=== PATIENT | female | born 1960 | race Caucasian/White ===

== ENCOUNTER → 2016-10-07 | Outpatient (CLI) | payer OTHER ==
[2016-03-06 13:45] VITALS: BP 187/94
[~2016-10-07] MED LIST: AMLO1CAP15 PO; AMLO5TAB2 PO; ASPI1TAB2 PO; ATEN100T PO; ATEN25TA PO; CYCL10TA2 PO; ESTR0.3T PO; IOHEXOL 240 MG/ML 50ML VIAL. PO ONE; IOHEXOL 300 MG/ML 75 ML VIAL IV ONE; MAGNESIUM OXIDE PO; NAPR220C4 PO; OMEP20TA63 PO; OMEP40CA5 PO; ONDA4TAB10 SL; OXYC-323 PO; POTASSIUM PO; SENN1TAB29 PO; TIOT18CA IH
--- NOTE | 2016-10-07 17:38 | RAD ---
INDICATION: Abdominal pain COMPARISON: None. TECHNIQUE: Axial CT images were obtained through the abdomen and pelvis with intravenous contrast. Coronal reformations were processed. FINDINGS: Abdomen: Chest Base: Partially imaged without gross abnormality. Vessels: Severe calcific atherosclerosis. Liver/Biliary: Postcholecystectomy changes without intrahepatic bile duct dilation. Pancreas: No gross abnormality. Spleen: Normal. Kidneys/Adrenal: No hydronephrosis. GI: Colonic diverticulosis. No definite active adjacent inflammation. No dilated loops of bowel to suggest obstruction. Appendix does not appear inflamed. Small fat-containing umbilical hernia. Mild prominence of stomach wall. Degenerative changes spine. Pelvis: Bladder: Partially distended without gross abnormality. IMPRESSION: 1. No evidence of bowel obstruction or appendicitis. 2. Colonic diverticulosis without definite active inflammation. 3. Stomach wall appears mildly prominent. This could be secondary to contraction given that it is not very distended on this exam but real stomach wall thickening from causes such as gastritis is not excluded if the patient is having pain in the region. PQRS Compliance Statement: One or more of the following individualized dose reduction techniques were utilized for this examination: 1. Automated exposure control 2. Adjustment of the mA and/or kV according to patient size 3. Use of iterative reconstruction technique
== END | disposition home or self-care (01) ==
LOC: CT 15:27
PROVIDERS: ATTEND Family Medicine
DX: K57.30 Diverticulosis of large intestine without perforation or abscess without bleeding (principal); K42.9 Umbilical hernia without obstruction or gangrene
CPT/HCPCS: 74177; Q9966; Q9967

== ENCOUNTER 2016-10-20 05:55 | Emergency (ER) | payer OTHER ==
[~2016-10-20] VITALS: Ht 162.6 cm; Wt 71.2 kg
[~2016-10-20 05:55] MED LIST changes: -AMLO1CAP15 PO; -ASPI1TAB2 PO; -ATEN100T PO; -ESTR0.3T PO; -IOHEXOL 240 MG/ML 50ML VIAL. PO ONE; -IOHEXOL 300 MG/ML 75 ML VIAL IV ONE; -MAGNESIUM OXIDE PO; -OMEP40CA5 PO; -ONDA4TAB10 SL; -OXYC-323 PO; -POTASSIUM PO; -SENN1TAB29 PO
--- NOTE | 2016-10-20 06:28 | EKG ---
[facility] [address] [place] [address] Test Date: 2016-10-20 Test Time: 06:12:37 Pat Name: HOLLY ANDERSON Department: Room: Gender: F [employer]: : 1960 Requested By: ROSALINA MURILLO Order Number: [id number] Reading MD: Humza Najera Measurements Intervals [place] Rate: 60 P: -26 MN: 144 QRS: -16 QRSD: 88 T: 0 QT: 414 QTc: 414 Interpretive Statements SINUS RHYTHM LEFTWARD AXIS R-S TRANSITION ZONE IN V LEADS DISPLACED TO THE LEFT NONSPECIFIC ST-T WAVE CHANGES. RI6.01 Unconfirmed report No previous ECG available for comparison Electronically Signed On 10-25-2016 13:33:48 CLOUD PHYSICIST by Humza Najera
--- NOTE | 2016-10-20 06:33 | PHYS DOC ---
Past Medical History Past Medical History: Diverticulitis, GERD, Hypertension Past Surgical History: Cholecystectomy, Tubal ligation Additional Past Surgical Histo: right knee; left foot Alcohol Use: Heavy Drug Use: None Adult General Chief Complaint Chief Complaint: [facility] HPI Patient is a 56 year old female who presents with right-sided abdominal back pain. She states she has to lift items at work and thinks she might of pulled a muscle in her back however after she eats she feels full quickly and feels pressure sensation in her right upper quadrant. She admits that she drinks 5-7 beers daily. She stopped drinking 2 days ago, she didn't feel well. She is complaining about mild headache but denies any neck pain fevers chills. She does states she has a cough but this is not any different than her normal cough from her smoking. She did have her gallbladder removed many years ago. She is of a history of diverticulosis. She denies any constipation diarrhea or dysuria. She denies any blood or black tarry stools. She states her pain in her back is worse when she twists or turns or tries to bend over. It is not in the middle us in the right paraspinal thoracic area. She states she does not have any abdominal discomfort until right after she eats. She has not taken anything as of yet for pain or discomfort over the last 4 days the symptoms flared up. Review of Systems Review of Systems Constitutional: Denies fever or chills [] Eyes: Denies change in visual acuity, redness, or eye pain [] HENT: Denies nasal congestion or sore throat [] Respiratory: Denies cough or shortness of breath [] Cardiovascular: No additional information not addressed in HPI [] GI: Denies abdominal pain, nausea, vomiting, bloody stools or diarrhea [] : Denies dysuria or hematuria [] Musculoskeletal: Denies joint pain or positive for right sided paraspinal back pain [] Integument: Denies rash or skin lesions [] Neurologic: Denies headache, focal weakness or sensory changes [] Endocrine: Denies polyuria or polydipsia [] Allergies Allergies Allergies Coded Allergies Type Severity Reaction Last Updated Verified codeine Adverse Reaction Intermediate vomiting 03/06/16 Yes Physical Exam Physical Exam Constitutional: Well developed, well nourished, no acute distress, non-toxic appearance. [] HENT: Normocephalic, atraumatic, bilateral external ears normal, oropharynx moist, no oral exudates, nose normal. [] Eyes: PERRLA, EOMI, conjunctiva normal, no discharge. [] Neck: Normal range of motion, no tenderness, supple, no stridor. [] Cardiovascular:Heart rate regular rhythm, no murmur [] Lungs & Thorax: Bilateral breath sounds clear to auscultation [] Abdomen: Bowel sounds normal, soft, no tenderness, no masses, no pulsatile masses. [] Skin: Warm, dry, no erythema, no rash. [] Back: Mild tender to palpation over the right thoracic mid back area off the spine. No spinal tenderness or step-offs noted, no CVA tenderness. [] Extremities: No tenderness, no cyanosis, no clubbing, ROM intact, no edema. [] Neurologic: Alert and oriented X 3, normal motor function, normal sensory function, no focal deficits noted. [] Psychologic: Affect normal, judgement normal, mood normal. [] Current Patient Data Vital Signs Vital Signs Date Time Temp Pulse Resp B/P Pulse Ox O2 Delivery O2 Flow Rate FiO2 10/20/16 06:05 97.8 71 16 191/113 98 Room Air 97.8 Lab Values Laboratory Tests Test 10/20/16 06:20 10/20/16 07:00 10/20/16 07:45 White Blood Count 6.9x10^3/uL (4.0-11.0) Red Blood Count 4.63x10^6/uL (3.50-5.40) Hemoglobin 15.4g/dL (12.0-15.5) Hematocrit 45.5% (36.0-47.0) Mean Corpuscular Volume 98fL (79-100) Mean Corpuscular Hemoglobin 33pg (25-35) Mean Corpuscular Hemoglobin Concent 34g/dL (31-37) Red Cell Distribution Width 13.6% (11.5-14.5) Platelet Count 231x10^3/uL (140-400) Neutrophils (%) (Auto) 70% (31-73) Lymphocytes (%) (Auto) 21% (24-48) L Monocytes (%) (Auto) 7% (0-9) Eosinophils (%) (Auto) 1% (0-3) Basophils (%) (Auto) 1% (0-3) Neutrophils # (Auto) 4.9x10^3uL (1.8-7.7) Lymphocytes # (Auto) 1.4x10^3/uL (1.0-4.8) Monocytes # (Auto) 0.5x10^3/uL (0.0-1.1) Eosinophils # (Auto) 0.1x10^3/uL (0.0-0.7) Basophils # (Auto) 0.0x10^3/uL (0.0-0.2) Prothrombin Time 11.9SEC (11.7-14.0) Prothrombin Time INR 0.9 (0.8-1.1) PTT 26SEC (24-38) Sodium Level 144mmol/L (136-145) Potassium Level 3.5mmol/L (3.5-5.1) Chloride Level 103mmol/L (98-107) Carbon Dioxide Level 29mmol/L (21-32) Anion Gap 12 (6-14) Blood Urea Nitrogen 11mg/dL (7-20) Creatinine 0.6mg/dL (0.6-1.0) Estimated GFR (Cockcroft-Gault) 103.0 Glucose Level 126mg/dL (70-99) H Calcium Level 9.3mg/dL (8.5-10.1) Total Bilirubin 0.6mg/dL (0.2-1.0) Direct Bilirubin 0.1mg/dL (0.0-0.2) Aspartate Amino Transferase (AST) 17U/L (15-37) Alanine Aminotransferase (ALT) 32U/L (14-59) Alkaline Phosphatase 71U/L (46-116) Creatine Kinase 55U/L (26-192) Creatine Kinase MB (Mass) 0.9ng/mL (0.0-3.6) Creatine Kinase MB Relative Index % (0-4) Troponin I Quantitative < 0.017ng/mL (0.000-0.055) Total Protein 7.2g/dL (6.4-8.2) Albumin 3.9g/dL (3.4-5.0) Lipase 164U/L (73-393) Urine Collection Type Unknown Urine Color Yellow Urine Clarity Clear Urine pH 7.5 Urine Specific Anderson 1.020 Urine Protein Negativemg/dL (NEG-TRACE) Urine Glucose (UA) Negativemg/dL (NEG) Urine Ketones (Stick) Negativemg/dL (NEG) Urine Blood Negative (NEG) Urine Nitrite Negative (NEG) Urine Bilirubin Negative (NEG) Urine Urobilinogen Dipstick 1.0mg/dL (0.2 mg/dL) Urine Leukocyte Esterase Negative (NEG) Urine RBC Occ/HPF (0-2) Urine WBC Occ/HPF (0-4) Urine Squamous Epithelial Cells Many/LPF Urine Bacteria 0/HPF (0-FEW) Urine Mucus Marked/LPF Influenza Type A Antigen Negative (NEGATIVE) Influenza Type B Antigen Negative (NEGATIVE) Laboratory Tests 10/20/16 06:20 Laboratory Tests 10/20/16 06:20 EKG EKG EKG shows sinus rhythm with rate of [address] elevations, T-wave inversions in lead 3 noted, left axis deviation, as interpreted by me. Radiology/Procedures Radiology/Procedures [facility] [address] [place] [address] IMAGING REPORT Signed PATIENT: HOLLY ANDERSON ACCOUNT: [id number] : 1960 LOCATION: ER AGE: 56 SEX: F EXAM STATUS: REG ER ORD. PHYSICIAN: ROSALINA MURILLO MD REASON: abd pain PROCEDURE: ACUTE ABDOMEN SERIES Abdomen series with chest, 3 views, 10/20/2016: History: Abdominal pain Gas is present in large and small bowel without significant bowel distention. There are small scattered air-fluid levels. No free air is seen in the abdomen. There is no evidence of organomegaly. Surgical clips are present in the right upper quadrant. Aortoiliac calcific plaquing is present. The heart size and pulmonary vascularity are normal. The lungs are clear. There is no evidence of pleural fluid. IMPRESSION: A few small scattered air-fluid levels in the GI tract suggests a mild nonspecific ileus. DICTATED and SIGNED BY: ELSY LAO MD DATE: 10/20/16 0831 CC: ROSALINA MURILLO MD; Meg NIEVES MD ~ Signed PATIENT: HOLLY ANDERSON ACCOUNT: [id number] : 1960 LOCATION: ER AGE: 56 SEX: F EXAM STATUS: REG ER ORD. PHYSICIAN: ROSALINA MURILLO MD REASON: abd pain PROCEDURE: ABDOMEN COMPLETE PROCEDURE Ultrasound of the abdomen complete HISTORY RUQ PAIN: IMPRESSION: CHOLECYSTECTOMY IN 1979. CBD TO .92CM, OTHERWISE WNL. TECHNIQUE Transabdominal ultrasound was used to evaluate the abdomen COMPARISON None FINDINGS Pancreas was normal in appearance. Aorta and vena cava are unremarkable. Liver is within normal limits in size and appearance without a focal lesion. Right kidney is 10.5 centimeters in length without a mass or hydronephrosis. Left kidney is 12.9 centimeters in length without a mass or hydronephrosis. Spleen was normal in appearance. Common duct measured 9 millimeters probably related to the previous cholecystectomy. Patient has had a previous cholecystectomy. IMPRESSION Previous cholecystectomy Bile duct generous in size No other abnormality noted Electronically signed by: Maximino Aaron MD (Oct 20, 2016 07:02:47) DICTATED and SIGNED BY: MAXIMINO AARON MD DATE: 10/20/16701 CC: ROSALINA MURILLO MD; Meg NIEVES MD ~ Impressions: Back muscle Spasm Course & Med Decision Making Course & Med Decision Making Pertinent Labs and Imaging studies reviewed. (See chart for details) EKG, chest x-ray, abdominal series, labs do not show any acute abnormalities in addition to an ultrasound of her abdomen. I'm not concerned this is cardiac as she is clearly tender to palpation over one of her paraspinal muscles on her back and her diverticulitis pain is usually left lower quadrant. Patient is being discharged home with Flexeril to use as needed. She is cautioned not to drive or taking his medicines can impair judgment and make her sleepy. Return precautions given she is to follow-up with her primary care physician within next 3-5 days. Her husbands reappointed being discharge in stable condition this time. She can also take Advil or Tylenol as needed [id number] with Flexeril. Dragon Disclaimer Dragon Disclaimer This electronic medical record was generated, in whole or in part, using a voice recognition dictation system. Departure Departure Impression: Primary Impression: Muscle spasm Disposition: HOME, SELF-CARE Referrals: Meg NIEVES MD (PCP) Patient Instructions: Muscle Strain Additional Instructions: You're x-ray and abdominal ultrasound did not show any abnormalities. Your being discharged home with a diagnosis of muscle spasm. You can take Flexeril as needed for your muscle spasm. You to make sure to sleepy can break the tablet half or just take it prior to going to bed. He should follow up with primary care physician within next 3-5 days. Return ER for worsening pain, or other concerns. Scripts Cyclobenzaprine Hcl 10 Mg Tablet1 Tab PO TID PRN MUSCLE SPASMS #30 TAB Prov:ROSALINA MURILLO MD 10/20/16 ROSALINA MURILLO MD Oct 20, 2016 06:33
[2016-10-20 06:50] LABS: BASO % 1 % (0-3); EOS % 1 % (0-3); HEMATOCRIT 45.5 % (36.0-47.0); HEMOGLOBIN 15.4 g/dL (12.0-15.5); LYMPH # 1.4 x10^3/uL (1.0-4.8); LYMPH % 21 % (24-48); MEAN CORPUSCULAR HEMOGLOBIN 33 pg (25-35); MEAN CORPUSCULAR HGB CONC 34 g/dL (31-37); MEAN CORPUSCULAR VOLUME 98 fL (79-100); MONO % 7 % (0-9); NEUT % 70 % (31-73); PLATELET COUNT 231 x10^3/uL (140-400); RED BLOOD COUNT 4.63 x10^6/uL (3.50-5.40); RED CELL DISTRIBUTION WIDTH 13.6 % (11.5-14.5); WHITE BLOOD COUNT 6.9 x10^3/uL (4.0-11.0)
[2016-10-20 06:56] LABS: CALCIUM 9.3 mg/dL (8.5-10.1); CREATININE 0.6 mg/dL (0.6-1.0); POTASSIUM 3.5 mmol/L (3.5-5.1)
[2016-10-20 07:01] LABS: ALBUMIN 3.9 g/dL (3.4-5.0); DIRECT BILIRUBIN 0.1 mg/dL (0.0-0.2); TOTAL BILIRUBIN 0.6 mg/dL (0.2-1.0); TOTAL PROTEIN 7.2 g/dL (6.4-8.2)
--- NOTE | 2016-10-20 07:04 | RAD ---
PROCEDURE Ultrasound of the abdomen complete HISTORY RUQ PAIN: IMPRESSION: CHOLECYSTECTOMY IN 1979. CBD TO .92CM, OTHERWISE WNL. TECHNIQUE Transabdominal ultrasound was used to evaluate the abdomen COMPARISON None FINDINGS Pancreas was normal in appearance. Aorta and vena cava are unremarkable. Liver is within normal limits in size and appearance without a focal lesion. Right kidney is 10.5 centimeters in length without a mass or hydronephrosis. Left kidney is 12.9 centimeters in length without a mass or hydronephrosis. Spleen was normal in appearance. Common duct measured 9 millimeters probably related to the previous cholecystectomy. Patient has had a previous cholecystectomy. IMPRESSION Previous cholecystectomy Bile duct generous in size No other abnormality noted Electronically signed by: Maximino Aaron MD (Oct 20, 2016 07:02:47)
[2016-10-20 07:09] LABS: BILIRUBIN,URINE NEGATIVE (NEG); GLUCOSE,URINE NEGATIVE (NEG); NITRITE,URINE NEGATIVE (NEG); PH,URINE 7.5; PROTEIN,URINE NEGATIVE (NEG-TRACE)
[2016-10-20 07:10] LABS: CKMB MASS 0.9 ng/mL (0.0-3.6); CREATINE KINASE 55 U/L (26-192)
[2016-10-20 07:11] LABS: INR 0.9 (0.8-1.1); PROTHROMBIN TIME PATIENT 11.9 SEC (11.7-14.0)
[2016-10-20 07:18] LABS: BACTERIA,URINE 0 /HPF (0-FEW); RBC,URINE OCC /HPF (0-2); SQUAMOUS EPITHELIAL CELL,UR MANY /LPF; WBC,URINE OCC /HPF (0-4)
[2016-10-20 08:08] LABS: OBC FLU VALID
--- NOTE | 2016-10-20 08:35 | RAD ---
Abdomen series with chest, 3 views, 10/20/2016: History: Abdominal pain Gas is present in large and small bowel without significant bowel distention. There are small scattered air-fluid levels. No free air is seen in the abdomen. There is no evidence of organomegaly. Surgical clips are present in the right upper quadrant. Aortoiliac calcific plaquing is present. The heart size and pulmonary vascularity are normal. The lungs are clear. There is no evidence of pleural fluid. IMPRESSION: A few small scattered air-fluid levels in the GI tract suggests a mild nonspecific ileus.
[2016-10-20 09:30] VITALS: BP 174/85
--- NOTE | 2016-10-20 09:41 | ACF ---
Admit Criteria Forms Admit Criteria Forms Admit Criteria Forms ABDOMINAL PAIN Clinical Indications for Admission to Inpatient Care (Place 'X' for any and all applicable criteria): Admission is indicated for ANY ONE of the following(1)(2)(3)(4)(5): [X]I. Inpatient admission required rather than observation care (Also use Abdominal Pain: Observation Care, as appropriate) because of ANY ONE of the following: [ ]a) Severe pain requiring acute inpatient management [X]b) Identification of etiology/finding that requires inpatient care (eg, aortic dissection, free air) [ ]c) Absent bowel sounds with complete ileus(6) [ ]d) Suspected toxic megacolon [ ]e) Severe electrolyte abnormalities requiring inpatient care [ ]f) High fever or infection requiring inpatient admission as indicated by ANY ONE of following(7)(8): [ ] i) Appropriate outpatient or observational care antimicrobial treatment unavailable, not effective, or not feasible [ ] ii) Documented bacteremia [ ] iii) Temperature > 104.9 degrees F (oral) [ ] iv) T >103.1 F (oral) or < 96.8 F(rectal) that does not respond to all emergency treatment measures [ ]g) Signs of intestinal obstruction [B] [ ]h) Hemodynamic instability [ ]i) IV fluid to replace significant ongoing losses (greater than 3 L/m2 per day) (12)(13) [ ]j) Percutaneous or open drainage (eg, abscess, biliary tract ) procedures [ ]k) Parenteral nutrition regimen that must be implemented on inpatient basis [ ]l) Other condition,treatment or monitoring requiring inpatient admission. [ ]II. Peritoneal signs present [ ]III. Surgery needed that cannot be performed on an ambulatory basis. [ ]IV. Evaluation requires patient to not eat or drink for extended period ( eg, more than 24 hours). [ ]V. Contraindications and/or Inappropriate clinical situations for Observational Care in patients with abdominal pain, when ANY ONE of the following is required: [ ]a) Thorough evaluation is required to prevent catastrophic events due to delays in diagnosing (e.g.Mesenteric ischemia) 1,3 [ ]b) Patient with severe pathology or with chronic symptoms unlikely to improve in the ED stay (3) [ ]. General contraindications and/or Inappropriate clinical situations for Observational Care in patients with abdominal pain, when ANY ONE of the following is required: [ ]a) Prediction of prolongation of LOS based on ANY ONE of the following may be considered as a contraindication for observational care 2, 3, 4, 5, 6, 7, 8, 9, 10, 11 [ ]i) Age > 65 yrs. [ ]ii) Patient arriving by ambulance [ ]iii) Patient with high acuity [ ]iv) Patient requiring vital sign monitoring [ ]v) Patient on IV medication [ ]b) Systolic blood pressures 180mmHg 3,12 [ ]c) Patient with altered mental status including delirium and other alteration of consciousness, (3) [ ]d) Patient whose discharge disposition will be to a penitentiary home or rehabilitation home should not be managed in Emergency Department Observation Unit. CMS rule requires 3 days hospital stay before such placement.3,13 [ ]e) Patient with failure to thrive due to broad array of etiologies 3,16,17 [ ]f) Inability to ambulate 3,14 Extended stay beyond goal length of stay may be needed for(2)(3): [ ]a) Persistent abdominal pain with suspected intra-abdominal process [ ]b) Diagnosed condition requiring continued stay (e.g., pancreatitis, complicated diverticulitis) [ ]c) Surgery (e.g., colectomy) The original [employer] content created by [employer] has been revised. The portions of the content which have been revised are identified through the use of italic text or in bold, and [employer] has neither reviewed nor approved the modified material.All other unmodified content is copyright [employer]. Please see references footnoted in the original [employer] edition 2016 ALEXANDRE RDZ Oct 20, 2016 09:41
[2016-10-20] MEDS ORDERED: CYCL10TA2 PO (09:46)
[2016-10-21] MEDS ORDERED: ATEN100T PO (11:10)
[2016-10-21] MEDS ORDERED: AMLO1CAP15 PO (11:10)
[2016-10-21] MEDS ORDERED: MAGNESIUM OXIDE PO (11:13)
[2016-10-21] MEDS ORDERED: OMEP40CA5 PO (11:14)
[2016-10-21] MEDS ORDERED: POTASSIUM PO (11:15)
[2016-10-21] MEDS ORDERED: ASPI1TAB2 PO (11:16)
[2016-10-21] MEDS ORDERED: ESTR0.3T PO (11:16)
== END 2016-10-20 10:00 | disposition home or self-care (01) ==
LOC: ER 05:55
DX: M62.830 Muscle spasm of back (principal); K21.9 Gastro-esophageal reflux disease without esophagitis; I10 Essential (primary) hypertension; Z90.49 Acquired absence of other specified parts of digestive tract; Z98.51 Tubal ligation status; Z88.5 Allergy status to narcotic agent
CPT/HCPCS: 36415; 74022; 76700; 80048; 80076; 81001; 82553; 83690; 84484; 85027; 85610; 85730; 87804; 93005; 99285-25

== ENCOUNTER 2016-10-25 06:12 | Day surgery (SDC) | payer OTHER ==
[~2016-10-25] VITALS: Ht 162.6 cm; Wt 71.2 kg
[~2016-10-25 06:12] MED LIST changes: +AMLO1CAP15 PO; +ASPI1TAB2 PO; +ATEN100T PO; +CEFAZOLIN 1GM IVPB FOR OMNI 50 ML IV PRN; +ESTR0.3T PO; +MAGNESIUM OXIDE PO; +OMEP40CA5 PO; +POTASSIUM PO
[2016-10-25] MEDS ORDERED: PROCHLORPERAZINE 10 MG/2 ML VIAL. IV PRN ×2 (07:00→09:00)
[2016-10-25] MEDS ORDERED: LIDOCAINE 1% 1 ML SYRINGE. ID PRN (07:00)
[2016-10-25] MEDS ORDERED: FENTANYL PF 100 MCG/2 ML VIAL. IV PRN ×2 (07:00→09:00)
[2016-10-25] MEDS ORDERED: IV RINGERS,LACTATED 1000ML 1,000 ML IV SCH (07:00)
[2016-10-25] MEDS ORDERED: ONDANSETRON PF 4 MG/2 ML VIAL. IV PRN (07:00)
[2016-10-25] MEDS ORDERED: SEVOFLURANE > 120 MINUTES. IH ONE (07:05)
[2016-10-25] MEDS ORDERED: ONDANSETRON PF 4 MG/2 ML VIAL. ONE (07:06)
[2016-10-25] MEDS ORDERED: NEOSTIGMINE METHYLSULFATE 5 MG/5 ML SYRINGE. ONE (07:06)
[2016-10-25] MEDS ORDERED: GLYCOPYRROLATE 1 MG/5 ML VIAL. ONE (07:06)
[2016-10-25] MEDS ORDERED: DEXAMETHASONE SOD PHOS 20 MG/5 ML VIAL. ONE (07:06)
[2016-10-25] MEDS ORDERED: PROPOFOL 20 ML IV ONE (07:06)
[2016-10-25] MEDS ORDERED: ROCURONIUM 50 MG/5 ML VIAL. ONE (07:06)
[2016-10-25] MEDS ORDERED: LIDOCAINE 2% 100 MG/5 ML DISP.SYRIN. ONE (07:07)
[2016-10-25] MEDS ORDERED: LIDOCAINE 1% 20 ML VIAL. ONE (07:10)
[2016-10-25] MEDS ORDERED: EPINEPHRINE 30 MG/30 ML VIAL. ONE (07:10)
[2016-10-25] MEDS ORDERED: BUPIVACAINE MPF 0.5% 30 ML VIAL. ONE (07:10)
[2016-10-25] MEDS ORDERED: FENTANYL PF 250 MCG/5 ML VIAL. ONE (07:11)
[2016-10-25] MEDS ORDERED: ROPIVacaine 0.5% PF 30 ML VIAL. ONE (07:11)
[2016-10-25] MEDS ORDERED: MIDAZOLAM HCL 2 MG/2 ML VIAL. ONE (07:12)
[2016-10-25] MEDS ORDERED: SCOPOLAMINE 1.5MG PATCH. TD ONE (07:22)
--- NOTE | 2016-10-25 07:32 | DISCH ---
DISCHARGE INSTRUCTIONS Condition on Discharge Condition on Discharge: Stable Activity After Discharge Activity Instructions for Disc: Other, see below Other activity instructions: arm to remain in sling Bathing Instructions: Shower-keep dressing dry Weight Bearing Status after Di: Non weight bearing Diet after Discharge Diet after Discharge: Regular Wound Incision Care Wound/Incision Care: Ice to area for comfort, Keep wound/cast CDI Contacting the DRShelby after DC Call your doctor for: Concerns you may have Follow-Up Follow up with: Elliot in 2wks Treatment/Equipment after DC Adaptive Equipment Issued: None MEGGAN SANFORD II, MD Oct 25, 2016 07:32
--- NOTE | 2016-10-25 07:33 | PDOC ---
BRIEF OPERATIVE NOTE Date: Oct 25, 2016 Pre-Op Diagnosis L RTC tear, cyst Post-Op Diagnosis same Procedure Performed L shoulder scope, RTC repair, cyst decompression Surgeon Elliot Crump Blood Loss 10mL Complications none MEGGAN SANFORD II, MD Oct 25, 2016 07:33
[2016-10-25] MEDS ORDERED: PHENYLEPHRINE in 0.9% NACL PF 1 MG/10 ML DISP.SYRIN. IV ONE (08:04)
[2016-10-25] MEDS ORDERED: HALOPERIDOL LACT 5 MG/ML VIAL. IVP PRN (09:00)
[2016-10-25] MEDS ORDERED: MORPHINE SULFATE 4 MG/ML DISP.SYRIN. IV PRN (09:00)
[2016-10-25] MEDS ORDERED: DIPHENHYDRAMINE 50 MG/ML VIAL IV PRN (09:00)
[2016-10-25] MEDS ORDERED: HYDROMORPHONE 2 MG/ML VIAL. IV PRN (09:00)
[2016-10-25] MEDS ORDERED: MEPERIDINE PF 25 MG/ML VIAL. IV PRN (09:00)
[2016-10-25] MEDS: FENTANYL PF 100 MCG/2 ML VIAL. IV PRN ×2 (10:06→10:59)
[2016-10-25] MEDS ORDERED: ONDA4TAB10 SL (10:39)
[2016-10-25] MEDS ORDERED: SENN1TAB29 PO (10:41)
[2016-10-25] MEDS ORDERED: OXYC-323 PO (10:42)
[2016-10-25] MEDS ORDERED: OXYCODONE/APAP 5/325 TABLET. PO ONE (10:45)
[2016-10-25 11:30] VITALS: BP 132/72
--- NOTE | 2016-10-25 14:00 | OP ---
DATE OF SURGERY: 10/25/2016 SURGEON: Scot Sanford MD RULES EXAMINER: Sweta Crump. ANESTHESIA: General plus regional nerve block. PREOPERATIVE DIAGNOSES: 1. Left shoulder rotator cuff tear. 2. Left shoulder cyst. POSTOPERATIVE DIAGNOSES: 1. Left shoulder rotator cuff tear, supraspinatus. 2. Left shoulder labral detachment and biceps tendinosis. 3. Left shoulder cyst. PROCEDURES PERFORMED: 1. Left shoulder arthroscopic rotator cuff repair. 2. Left shoulder arthroscopic biceps tenotomy. 3. Left shoulder arthroscopic cyst decompression. 4. Left shoulder labral debridement. FINDINGS: 1. The patient had some detachment of her biceps anchor and tear of her superior labrum. Overall, it was stable in considering and performing the tenotomy and debridement. I did not feel that it needed fixation. 2. She had grade 2 to 3 changes anteriorly at her glenoid cartilage. 3. Intact humeral head cartilage. 4. Approximately 50% thickness supraspinatus tear at the leading edge. 5. Intact inferior, anterior, and posterior labrum. ESTIMATED BLOOD LOSS: 10 mL. COMPONENTS INSERTED: A single double-loaded [employer] 1.9 mm Suturefix anchors. COMPLICATIONS: None. REASON FOR PROCEDURE: The patient is a very pleasant 56-year-old female with continued shoulder pain and loss of function that interfered with her activities of daily living who failed conservative therapy such as injections and physical therapy. Because of this, we had a discussion of risks, benefits, and alternatives to the above surgery after reviewing an MRI. She elected to proceed. DESCRIPTION OF PROCEDURE: The patient was greeted in the preoperative area by myself. Correct extremity was marked and verified. She was taken to the operative suite, and antibiotics were started en route. She had a regional nerve block placed by the anesthesiologist even prior to coming back. Once in the OR, she had successful induction of general anesthesia. We then placed her onto the OR table and set her up in beach chair position with her C-spine maintained in neutral position and legs under large pad. She was secured to the bed. We proceeded to prep and drape the left upper extremity in the usual sterile fashion and conducted a standard preoperative timeout. After this, I palpated and marked surface anatomy and used a spinal needle to localize the posterosuperior portal and incised the skin in accordance with this. I then introduced my blunt arthroscopic trocar into the glenohumeral joint, and I then used a spinal needle to localize the anterosuperior portal. I placed a switching stick followed by dilating the hole and placing a clear threaded cannula. I then conducted my diagnostic arthroscopy with the above noted findings. I then opted to place an anteroinferior portal, which I did under spinal needle localization in the same manner. After threading in this cannula, I then debrided the labrum to inspect this and opted to perform a biceps tenotomy rather than a slight repair. After debriding the labrum, I debrided some of the rotator cuff and then passed PDS sutures through a spinal needle from a lateral position and pulled it out through my anterior inferior portal for subacromial visualization. I then removed the anterosuperior and posterosuperior cannula and reintroduced blunt arthroscopic trocar into the subacromial space and performed a bursectomy with combination of shaver and electrocautery. I identified my PDS suture and was easily able to fall into this area with a blunt arthroscopic trocar. I then used a combination of shaver and a little electrocautery at the footprint to prepare the bony bed. After debriding the tear and essentially completing it for full thickness, the tear was approximately 1.5 mm in width and approximately 6 cm to 7 cm in length. I then placed a single, double-loaded suture anchor in the footprint and used a [employer] suture passing device to shuttle two sutures in a simple configuration through the repair. I then tied these down with arthroscopic knot tying techniques. The repair was stable to probing. No gapping at the bone tendon interface on rotation. I then removed all the excess arthroscopic fluid and the arthroscopic instrumentation after cutting the free limbs of the suture. The wounds were then closed with simple interrupted 2-0 nylon, and we did inject some local anesthetic into the periportal and subacromial area. She tolerated the surgery well. Postoperative plan is for her to be nonweightbearing x 4 weeks in the sling. We will have her get started on PT later this week. We will follow along with her postoperative course. She will see me in 2 weeks, sooner should problems arise. SCOT SANFORD MD DR: EUN/sofia JOB#: [id number] / [id number] MTDD
== END 2016-10-25 12:22 | disposition home or self-care (01) ==
LOC: SURG 06:12
PROVIDERS: ATTEND Orthopaedic Surgery Sports Medicine
DX: M75.102 Unspecified rotator cuff tear or rupture of left shoulder, not specified as traumatic (principal); S43.432A Superior glenoid labrum lesion of left shoulder, initial encounter; M19.042 Primary osteoarthritis, left hand; I10 Essential (primary) hypertension; E78.00 Pure hypercholesterolemia, unspecified; J45.909 Unspecified asthma, uncomplicated; Z90.49 Acquired absence of other specified parts of digestive tract; Z98.51 Tubal ligation status; Z87.39 Personal history of other diseases of the musculoskeletal system and connective tissue
CPT/HCPCS: 29822; 29827; J0171; J0690; J0780; J1100; J2250; J2370; J2405; J2704; J2710; J2795; J3010; J3490; C1782; J7120

== ENCOUNTER 2017-02-14 19:47 | Observation (INO) | payer OTHER ==
[~2017-02-14] VITALS: Ht 162.6 cm; Wt 75.5 kg
[~2017-02-14 19:47] MED LIST changes: -CEFAZOLIN 1GM IVPB FOR OMNI 50 ML IV PRN; +ONDA4TAB10 SL; +OXYC-323 PO; +SENN1TAB29 PO
[2017-02-14 20:35] LABS: BASO # 0.1 x10^3/uL (0.0-0.2); BASO % 1 % (0-3); EOS % 2 % (0-3); HEMATOCRIT 38.9 % (36.0-47.0); HEMOGLOBIN 13.7 g/dL (12.0-15.5); LYMPH # 2.3 x10^3/uL (1.0-4.8); LYMPH % 33 % (24-48); MEAN CORPUSCULAR HEMOGLOBIN 34 pg (25-35); MEAN CORPUSCULAR HGB CONC 35 g/dL (31-37); MEAN CORPUSCULAR VOLUME 97 fL (79-100); MONO % 5 % (0-9); NEUT % 60 % (31-73); PLATELET COUNT 250 x10^3/uL (140-400); RED BLOOD COUNT 3.99 x10^6/uL (3.50-5.40); RED CELL DISTRIBUTION WIDTH 13.3 % (11.5-14.5); WHITE BLOOD COUNT 6.9 x10^3/uL (4.0-11.0)
[2017-02-14 20:57] LABS: ALBUMIN 3.6 g/dL (3.4-5.0); ALBUMIN/GLOBULIN RATIO 1.1 (1.0-1.7); CALCIUM 7.1 mg/dL (8.5-10.1); CREATININE 0.6 mg/dL (0.6-1.0); MAGNESIUM 0.8 mg/dL (1.8-2.4); TOTAL BILIRUBIN 0.3 mg/dL (0.2-1.0)
[2017-02-14 21:00] LABS: POTASSIUM 2.9 mmol/L (3.5-5.1)
[2017-02-14] MEDS ORDERED: POTASSIUM CHLORIDE 20 MEQ TABLET.ER. PO ONE (21:30)
[2017-02-14] MEDS ORDERED: MAGNESIUM SULFATE 2GM 50 ML IV ONE (22:00)
--- NOTE | 2017-02-14 22:33 | PHYS DOC ---
Past Medical History Past Medical History: Diverticulitis, GERD, High Cholesterol, Hypertension Past Surgical History: Cholecystectomy, Tubal ligation Additional Past Surgical Histo: right knee; left foot Additional Information: PPD Alcohol Use: Heavy Drug Use: None Adult General Chief Complaint Chief Complaint: MUSCLE SPASM/CRAMP HPI HPI 56-year-old female presenting to the emergency department today with muscle cramping. She reports cramping in her hands and her legs. She has a history of low potassium and low magnesium. She is been trying to drink Pedialyte to replace her electrolytes and taking [id number] potassium and magnesium supplementation. Onset 1 week. Intermittent nonradiating without alleviating or exacerbating factors. Review of systems is negative for chest pain abdominal pain nausea vomiting fevers or chills. She denies palpitations or syncope. All other review of systems is negative unless otherwise noted in history of present illness. ED course: 56-year-old female presenting to the emergency department today with muscle cramps. Vital signs afebrile with normal blood pressure. Physical exam unremarkable. Magnesium and potassium quite low. EKG obtained. EKG shows sinus rhythm with a regular rate. Intervals show QTC within normal limits. QRS minimally prolonged. Mag and potassium low. IV potassium and magnesium replaced. The patient was then admitted for IV electrolyte disturbance placement and further evaluation workup and care. She was admitted to Dr. Nieves her primary care physician. Patient does not meet inpatient criteria. Review of Systems Review of Systems SEE ABOVE. Current Medications Current Medications Current Medications Medications (Trade) Dose Ordered Sig/Maryanne Start Time Stop Time Status Last Admin Dose Admin Magnesium Sulfate/ Dextrose 50 ml @ 25 mls/hr 1X ONCE 02/14/17 22:00 02/14/17 23:59 02/14/17 21:58 25 MLS/HR Potassium Chloride (Klor-Con) 40 meq 1X ONCE 02/14/17 21:30 02/14/17 21:31 DC 02/14/17 21:58 40 MEQ Allergies Allergies Allergies Coded Allergies Type Severity Reaction Last Updated Verified shellfish derived Allergy Intermediate Vomiting,Lethargy,[place]ountain really bad Yes codeine Adverse Reaction Intermediate vomiting 10/25/16 Yes Physical Exam Physical Exam Constitutional: Well developed, well nourished, no acute distress, non-toxic appearance. HENT: Normocephalic, atraumatic, bilateral external ears normal, oropharynx moist, no oral exudates, nose normal. [] Eyes: PERRLA, EOMI, conjunctiva normal, no discharge. Neck: Normal range of motion, no tenderness, supple, no stridor. [] Cardiovascular:Heart rate regular rhythm, no murmur Lungs & Thorax: Bilateral breath sounds clear to auscultation [] Abdomen: Bowel sounds normal, soft, no tenderness, no masses, no pulsatile masses. Skin: Warm, dry, no erythema, no rash. [] Back: No tenderness, no CVA tenderness. [] Extremities: No tenderness, no cyanosis, no clubbing, ROM intact, no edema. Neurologic: Alert and oriented X 3, normal motor function, normal sensory function, no focal deficits noted. Psychologic: Affect normal, judgement normal, mood normal. [] Current Patient Data Vital Signs Vital Signs Date Time Temp Pulse Resp B/P (MAP) Pulse Ox O2 Delivery O2 Flow Rate FiO2 02/14/17 20:20 98.2 69 20 97 Room Air 98.2 Lab Values Laboratory Tests Test 02/14/17 20:20 02/14/17 20:27 White Blood Count 6.9 x10^3/uL (4.0-11.0) Red Blood Count 3.99 x10^6/uL (3.50-5.40) Hemoglobin 13.7 g/dL (12.0-15.5) Hematocrit 38.9 % (36.0-47.0) Mean Corpuscular Volume 97 fL (79-100) Mean Corpuscular Hemoglobin 34 pg (25-35) Mean Corpuscular Hemoglobin Concent 35 g/dL (31-37) Red Cell Distribution Width 13.3 % (11.5-14.5) Platelet Count 250 x10^3/uL (140-400) Neutrophils (%) (Auto) 60 % (31-73) Lymphocytes (%) (Auto) 33 % (24-48) Monocytes (%) (Auto) 5 % (0-9) Eosinophils (%) (Auto) 2 % (0-3) Basophils (%) (Auto) 1 % (0-3) Neutrophils # (Auto) 4.1 x10^3uL (1.8-7.7) Lymphocytes # (Auto) 2.3 x10^3/uL (1.0-4.8) Monocytes # (Auto) 0.3 x10^3/uL (0.0-1.1) Eosinophils # (Auto) 0.1 x10^3/uL (0.0-0.7) Basophils # (Auto) 0.1 x10^3/uL (0.0-0.2) Sodium Level 135 mmol/L (136-145) L Potassium Level 2.9 mmol/L (3.5-5.1) *L Chloride Level 95 mmol/L (98-107) L Carbon Dioxide Level 27 mmol/L (21-32) Anion Gap 13 (6-14) 21 mmol/L (6-14) H Blood Urea Nitrogen 10 mg/dL (7-20) Creatinine 0.6 mg/dL (0.6-1.0) Estimated GFR (Cockcroft-Gault) 103.0 BUN/Creatinine Ratio 17 (6-20) Glucose Level 107 mg/dL (70-99) H 103 mg/dL (70-99) H Calcium Level 7.1 mg/dL (8.5-10.1) L Magnesium Level 0.8 mg/dL (1.8-2.4) L Total Bilirubin 0.3 mg/dL (0.2-1.0) Aspartate Amino Transferase (AST) 18 U/L (15-37) Alanine Aminotransferase (ALT) 29 U/L (14-59) Alkaline Phosphatase 77 U/L (46-116) Total Protein 7.0 g/dL (6.4-8.2) Albumin 3.6 g/dL (3.4-5.0) Albumin/Globulin Ratio 1.1 (1.0-1.7) POC Hemoglobin 13.9 g/dL (12-15) POC Hematocrit 41 % (36-40) H POC Sodium 134 mmol/L (135-145) L POC Potassium 3.0 mmol/L (3.5-5.0) L POC Chloride 94 mmol/L (98-110) L POC Total CO2 24 mmol/L (23-32) POC Blood Urea Nitrogen 9 mg/dL (8-26) POC Creatinine 0.7 mg/dL (0.5-1.4) POC Ionized Calcium (Andrea) 0.89 mmol/L (1.13-1.32) L Laboratory Tests 02/14/17 20:20 Laboratory Tests 02/14/17 20:20 02/14/17 20:27 EKG EKG [] Radiology/Procedures Radiology/Procedures [] Course & Med Decision Making Course & Med Decision Making Pertinent Labs and Imaging studies reviewed. (See chart for details) [] Dragon Disclaimer Dragon Disclaimer This electronic medical record was generated, in whole or in part, using a voice recognition dictation system. Departure Departure Impression: Primary Impression: Hypokalemia Additional Impression: Magnesium deficiency Disposition: 09 ADMITTED INPATIENT Admitting Physician: Steven Nieves Condition: IMPROVED Referrals: CIPRIANO NIEVES MD (PCP) Problem Qualifiers ELIAZAR OLVERA MD Feb 14, 2017 22:33
[2017-02-14] MEDS ORDERED: ONDANSETRON PF 4 MG/2 ML VIAL. IV PRN (22:45)
[2017-02-14] MEDS ORDERED: MORPHINE SULFATE 2 MG/ML DISP.SYRIN. IV PRN (22:45)
--- NOTE | 2017-02-14 22:59 | ACF ---
Admission Forms Criteria GENERAL ADMISSION CRITERIA (Place 'X' for any and all applicable criteria): Admission is indicated for ANY ONE of the following: [ ]I. Hemodynamic instability as indicated by ANY ONE of the following(1)(2) (3)(4)(5): [ ]a) Vital sign abnormality not readily corrected by appropriate treatment within 12 to 24 hours indicated by ANY ONE of the following: [ ]i) Hypotension [ ]ii) Symptomatic Tachycardia unresponsive to treatment (eg , analgesia, fluids, sedation as indicated) [ ]iii) Orthostatic vital sign changes unresponsive to treatment (eg, fluids) [ ]b) Vital sign abnormality that is severe indicated by ANY ONE of the following: [ ]i) Inadequate perfusion indicated by ANY ONE of the following: [ ]1) Lactic acidosis (greater than 2 mmol/L) [ ]2) New abnormal capillary refill (greater than 3 seconds) [ ]3) Other metabolic acidosis (arterial pH less than 7.35) not otherwise explained [ ]4) Reduced urine output [ ]5) Altered mental status [ ]6) Myocardial Ischemia [ ]v) Mean arterial pressure[A] less than 60 mm Hg [ ]vi) Mean arterial pressure[A] less than 70 mm Hg after 30 minutes of appropriate treatment (eg, fluid resuscitation) [ ]vii) IV inotropic or vasopressor medication required to maintain adequate blood pressure or perfusion [ ]viii) Sustained heart rate greater than 120 beats per minute in adult or child 6 years or older[B]] [ ]II. Hypertension requiring inpatient treatment as indicated by ANY ONE of the following(6)(7)(8): [ ]a) SBP greater than 220 mm Hg or DBP greater than 120 mm Hg despite treatment [ ]b) SBP greater than 140 mm Hg or DBP greater than 100 mm Hg with evidence of acute end organ damage as indicated by ANY ONE of the following: [ ]i) Encephalopathy [ ]ii) Acute renal failure as indicated by new onset of ANY ONE of the following(9)(10)(11)(12)(13): [ ]1) A 3-fold rise in serum creatinine from baseline [ ]2) Serum creatinine greater than 4 mg/dL ( 354 micromoles/L) with acute rise greater than 0.5 mg/dL (44.2 micromoles/L) [ ]3) Reduction of more than 75% in estimated glomerular filtration rate from baseline [ ]4) Estimated glomerular filtration rate less than 35 mL/min/1.73m2 (0.59 mL/sec/1.73m2) in child up to 18 years of age [ ]5) Cessation of urine output indicated by ALL of the following: [ ]A. Adequate volume status [ ]B. Inadequate urine output as indicated by ANY ONE of the following: [ ]a. Urine output less than 0.3 mL/kg/hr for 24 hours [ ]b. Anuria (urine output less than 0.1 mL/kg/hr) for 12 hours [ ]iii) Aortic dissection [ ]iv) Myocardial ischemia [ ]v) Left ventricular heart failure [ ]vi) Retinal hemorrhage [ ]vii) Other significant finding [ ]c) Hypertension in child requiring inpatient treatment as indicated by ALL of the following(14)(15)(16): [ ]i) Outpatient treatment not effective, not available, or not appropriate [ ]ii) SBP or DBP greater than 95th percentile for age [ ]iii) Evidence of acute end organ damage as indicated by ANY ONE of the following: [ ]1) Altered mental status [ ]2) Acute renal failure as indicated by new onset of ANY ONE of the following(9)(10)(11)(12)(13): [ ]A. A 3-fold rise in serum creatinine from baseline [ ]B. Serum creatinine greater than 4 mg/dL (354 micromoles/L) with acute rise greater than 0.5 mg/dL (44.2 micromoles/L) [ ]C. Reduction of more than 75% in estimated glomerular filtration rate from baseline [ ]D. Estimated glomerular filtration rate less than 35 mL/min/1.73m2 (0.59 mL/sec/1.73m2)in child up to 18 years of age [ ]E. Cessation of urine output indicated by ALL of the following: [ ]a. Adequate volume status [ ]b. Inadequate urine output as indicated by ANY ONE of the following: [ ]1) Urine output less than 0.3 mL/kg/hr for 24 hours [ ]2) Anuria (urine output less than 0.1 mL/kg/hr) for 12 hours [ ]3) Severe headache [ ]4) Visual disturbance [ ]5) Retinal hemorrhage [ ]6) Other significant finding [ ]III. Acute cardiac or peripheral ischemia as indicated by ANY ONE of the following: [ ]a) Acute coronary syndrome(17)(18) [ ]b) Acute peripheral ischemia (eg, pulseless, cool, mottled, or cyanotic extremity)(19) [ ]IV. Cardiac arrhythmias or findings of immediate concern indicated by ANY ONE of the following(20)(21): [ ]a) Heart rhythms that are inherently dangerous or unstable indicated by ANY ONE of the following(22)(23)(24): [ ]i) Resuscitated ventricular fibrillation or cardiac arrest [ ]ii) Ventricular escape rhythm [ ]iii) Sustained ventricular tachycardia (30 seconds or more of ventricular rhythm at greater than 100 beats per minute) [ ]iv) Nonsustained ventricular tachycardia and ANY ONE of the following: [ ]1) Suspected cardiac ischemia as cause or consequence of ventricular tachycardia [ ]2) In setting of acute myocarditis [ ]b) Unstable cardiac conduction defects indicated by ANY ONE of the following(24)(25)(26): [ ]i) Type II second-degree atrioventricular block [ ]ii) Third-degree atrioventricular block [ ]iii) New-onset left bundle branch block with suspected myocardial ischemia [ ]c) Any heart rhythm and ANY ONE of the following(22)(23)(27)(28)( 29): [ ] i) Continuous long-term ECG monitoring needed (eg, initiation of drug requiring monitoring for more than 24 hours) [ ] ii) Patient has automatic implanted cardioverter defibrillator that is repeatedly firing, malfunctioning, or in need of immediate adjustment of settings beyond the scope of ambulatory or observation care. [ ]d) Heart rhythms of concern due to ANY ONE of the following: [ ]i) Hypotension [ ]ii) Respiratory distress [ ]iii) Association with other significant symptoms (eg, bradycardia with syncope or ongoing dizziness, supraventricular tachycardia with chest pain) (27)(28) (30) [ ] V. Severe heart failure as indicated by ANY ONE of the following ( 31)(32): [ ]a) Respiratory distress [ ]b) Hypotension [ ]c) Anasarca (refractory to outpatient therapy) [ ]d) Cardiac arrhythmias of immediate concern [ ]e) Myocardial ischemia [ ]. Respiratory abnormalities, including ANY ONE of the following(33)(34) (35)(36): [ ]a) Respiratory rate greater than 30 breaths per minute unresponsive to treatment [A] [ ]b) New saturation of arterial oxygen less than 90% [ ]c) New partial pressure of carbon dioxide greater than 44 mm Hg ( 5.9 kPa) [ ]d) Supplemental oxygen or respiratory treatments needed that are new or not performable at other levels of care [ ]e) New-onset cyanosis [ ]f) Inability to protect airway [ ]g) Chronic lung disease with severe deterioration (not responsive to emergency and observation care treatment as appropriate) as indicated by ANY ONE of the following(34)(36 ): [ ]i) SaO2 5% below baseline in patient with chronic hypoxemia [ ]ii) New requirement for supplemental oxygen to keep SaO2 at baseline or acceptable level [ ]iii) Required supplemental oxygen performable only in acute inpatient setting [ ]iv) Severe airflow or ventilation abnormalities [ ]v) Previously mobile patient unable to walk between rooms [ ]vi Inability to eat or sleep due to dyspnea [ ]vii) Rapid rate of exacerbation onset [ ]viii) Altered mental status ]VII. Severe airflow or ventilation abnormalities (not responsive to emergency and observation care treatment as appropriate) as indicated by ANY ONE of the following(33)(34)(35)(37): [ ]a) PCO2 greater than 42 mm Hg (5.6 kPa) and pH less than 7.35 (new ) [ ]b) Documented PCO2 increased more than 5 mm Hg (0.7 kPa) from disease baseline [ ]c) Airflow measurements [B] less than 60% of previous best or predicted (eg, peak expiratory flow rate less than 300 L/minute) despite intensive emergent treatment [C] [ ]d) Required respiratory treatments that are performable only in acute inpatient setting [ ]VIII. Impending or actual respiratory arrest ( Also use Respiratory Failure GRG for severe respiratory disease and long-term mechanical ventilation patients) [ ]IX. Neurologic abnormalities, including ANY ONE of the following: [ ]a) New findings that suggest ANY ONE of the following: [ ]i) DOCUMENT CLERK infection(38) [ ]ii) Cerebral bleeding, ischemia, or vasospasm(39)(40) [ ]iii) Increased intracranial pressure, hydrocephalus, or cerebral edema(41)(42)(43) [ ]iv) Spinal cord injury(44) [ ]b) Uncontrolled seizures(45) [ ]c) New-onset coma (eg, Nadira coma scale score less than 9) or unexplained abnormal mental status (eg, Nadira coma scale score less than 14) [D](41)(46)(47) [ ]X. New-onset severe neurologic findings requiring inpatient care; examples include(42)(48)(49): [ ]a) Papilledema [ ]b) Cerebral edema [ ]c) Mass effect on CT scan [ ]XI. Suspected acute intra-abdominal process with peritoneal signs, abdominal mass, or similar findings (50)(51)(52) [ ]XII. Severe physiologic disorder remaining after emergency or observation level care (as appropriate) as indicated by ANY ONE of the following (53): [ ]a) Significant dehydration [ ]b) Diabetic ketoacidosis [ ]c) Hyperglycemic hyperosmolar state (eg, osmolality greater than 320 mOsm/kg (mmol/kg) [ ]d) Hypoglycemia [ ]e) Other (new) acid-base disorder with pH less than 7.35 or greater than 7.5(54) [ ]f) Thyroid storm (55) [ ]g) Myxedema coma (55) [ ]XIII. Abdominal abnormalities with ANY ONE of the following(56)(57): [ ]a) Absent bowel sounds with complete ileus [ ]b) Signs of intestinal obstruction or peritonitis [E] [ ]c) Nausea and vomiting that cannot be controlled with outpatient or observation care [ ]XIV. Acute renal failure as indicated by new onset of ANY ONE of the following(9)(10)(11)(12)(13): [ ]a) A 3-fold rise in serum creatinine from baseline [ ]b) Serum creatinine greater than 4 mg/dL (354 micromoles/L) with acute rise greater than 0.5 mg/dL (44.2 micromoles/L) [ ]c) Reduction of more than 75% in estimated glomerular filtration rate from baseline [ ]d) Estimated glomerular filtration rate less than 35 mL/min/ 1.73m2 (0.59 mL/sec/1.73m2) in child up to 18 years of age [ ]e) Cessation of urine output indicated by ALL of the following: [ ]i) Adequate volume status [ ]ii) Inadequate urine output as indicated by ANY ONE of the following: [ ]1) Urine output less than 0.3 mL/kg/hr for 24 hours [ ]2) Anuria (urine output less than 0.1 mL/kg/hr) for 12 hours [ ]XV. Significant uremic complications as indicated by ANY ONE of the following(58)(59)(60): [ ]a) Outpatient therapy is ineffective or not feasible for ANY ONE of the following: [ ]i) Severe heart failure [ ]ii) Severehypertension [ ]iii) Pleural effusion [ ]iv) Pericarditis or pericardial effusion [ ]b) Cardiac arrhythmias of immediate concern [ ]c) Intractable nausea or vomiting [ ]d) Recurrent seizures [ ]e) Encephalopathy [ ]f) Bleeding abnormalities (eg, platelet dysfunction) with active (eg, gastrointestinal) bleeding [ ]g) Dialysis indicated before long-term access or ambulatory arrangements can be made [ ]h) Significant metabolic or electrolyte abnormalities (eg, severe acidosis or hyperkalemia) [ ]XVI. High fever or other high-risk infection situation as indicated by ANY ONE of the following(61)(62)(63)(64): [ ]a) Outpatient and observation care antimicrobial treatment unavailable, not effective, or not appropriate [ ]b) Documented bacteremia [ ]c) Temperature greater than 40.5 degrees C (104.9 degrees F) ( oral) [ ]d) Temperature greater than 39.5 degrees C (103.1 degrees F) ( oral) or less than 36 degrees C (96.8 degrees F) (rectal) that does not respond to e treatment and observation care [ ] XVII. Temperature less than 95 degrees F (35 degrees C)(rectal)(65) [ ] XVIII. Severe nutritional abnormalities as indicated by ALL of the following (66)(67): [ ]a) Inability to tolerate or establish sufficient oral or other enteral nutrition in outpatient setting [ ]b) Parenteral nutrition regimen need that must be implemented on inpatient basis [ ] XIX. Severe electrolyte abnormalities indicated by ALL of the following(68) (69)(70): [ ]a) Electrolytes and associated findings are not as expected for patient baseline or acceptable treatment effects. [ ]b) Severe abnormalities indicated by ANY ONE of the following: [ ]i) Sodium less than 130 mEq/L (mmol/L) (new) [ ]ii)Sodium less than 135 mEq/L (mmol/L) with ANY ONE of the following: [ ]1) Uncorrectable (to near normal or chronic baseline) after trial of outpatient and emergency treatment [ ]2) Altered mental status [ ]3) Seizures [ ]4) Severe medical etiology requiring inpatient management (eg, heart failure, hypovolemia) [ ]iii) Sodium greater than 155 mEq/L (mmol/L) [ ]iv) Sodium greater than 150 mEq/L (mmol/L) with ANY ONE of the following: [ ]1) Uncorrectable (to near normal or chronic baseline) with outpatient and emergency treatment [ ]2) Altered mental status [ ]3) Seizures [ ]4) Severe medical etiology (eg, hypovolemia, diabetes insipidus) [ ]v) Potassium less than 2.5 mEq/L (mmol/L) despite outpatient and emergency treatment [ ]vi) Potassium less than 3 mEq/L (mmol/L) with ANY ONE of the following: [ ]1) Weakness [ ]2) Cardiac abnormality (eg, arrhythmia, conduction disturbance) [ ]3) Cardiac ischemia [ ]4) Ileus [ ]5) Ongoing medical cause requiring inpatient management (eg, acute renal wasting or SIADH) [ ]6) Other severe symptoms [ ]vii) Potassium greater than 6.5 mEq/L (mmol/L) [ ]viii) Potassium greater than 5 mEq/L (mmol/L) with ANY ONE of the following: [ ]1) Uncorrectable (to near normal or chronic baseline) with outpatient and emergency treatment [ ]2) Severe ECG findings [F] [ ]3) Acute worsening of renal failure (creatinine greater than 2.5 mg/dL (221 micromoles/L) or significant elevation for age and size) [ ]4) Severe weakness [ ]5) Severe medical etiology (eg, hemolysis, infection, drug overdose) [ ]ix) Calcium less than 7 mg/dL (1.75 mmol/L) despite outpatient and emergency treatment (72) [ ]x) Calcium less than 8 mg/dL (2 mmol/L) with significant symptoms or findings; examples include(72): [ ]1) Altered mental status [ ]2) Muscle spasms [ ]3) Seizures [ ]4) Breathing difficulty [ ]5) Cardiac abnormality (eg, arrhythmia or conduction disturbance) [ ]xi) Calcium greater than 14 mg/dL (3.5 mmol/L)(72) [ ]xii) Calcium greater than 12 mg/dL (3 mmol/L) with ANY ONE of the following(72): [ ]1) Uncorrectable (to near normal or chronic baseline) with outpatient and emergency treatment [ ]2) Significant dehydration or hypovolemia as indicated by ALL of the following(70)(73)(74): [ ]A. Not resolved with initial treatments [ ]B. Clinically significant dehydration as indicated by ANY ONE of the following: [ ]a. Vomiting refractory to outpatient treatment (ie, precluding oral rehydration) [ ]b. Inability to drink [ ]c. Hypernatremia or other electrolyte abnormality unable to be corrected with outpatient and emergency treatment [ ]d. Failure to remain hydrated with outpatient therapy [ ]e. Reduced urine output [ ]f. Hypotension [ ]g. Serious cause for dehydration requiring acute hospitalization (eg, bowel obstruction, increased intracranial pressure, infectious cause) [ ]h. Child with ANY ONE of the following(75): [ ]1) Severe abdominal tenderness [ ]2) Adequate care not available at home [ ]3) Severe dehydration ( greater than 9% loss of body weight) [ ]4) Significant symptoms or findings; examples include: [ ]A. Altered mental status [ ]B. Cardiac abnormality (eg, arrhythmia, conduction disturbance) [ ]C. Malignant etiology requiring inpatient treatment [ ]xiii) Phosphorus less than 1 mg/dL (0.32 mmol/L) [ ]xiv) Phosphorus less than 1.5 mg/dL (0.48 mmol/L) with ANY ONE of the following: [ ]1) Patient unresponsive to outpatient and emergency treatment [ ]2) Significant symptoms or findings; examples include: [ ]A. Weakness [ ]B. Altered mental status [ ]C. Breathing difficulty [ ]D. Seizures [ ]E. Rhabdomyolysis [ ]xv) Phosphorus greater than 10 mg/dL (3.2 mmol/L) [ ]xvi) Phosphorus greater than 4.5 mg/dL (1.45 mmol/L) (new) with ANY ONE of the following: [ ]1) Severe medical etiology (eg, crush injury, acute renal failure) [ ]2) Associated hypocalcemia with significant findings; examples include: [ ]A. Neurologic symptoms [ ]B. Altered mental status [ ]C. Muscle spasms [ ]D. Seizures [ ]E. Breathing difficulty [ ]F. Cardiac abnormality (eg, arrhythmia, conduction disturbance) [X]xvii) Magnesium less than 1 mg/dL (0.41 mmol/L) [ ]xviii) Magnesium less than 1.5 mg/dL (0.62 mmol/L) with ANY ONE of the following: [ ]1) Patient unresponsive to outpatient and emergency treatment [ ]2) Associated hypocalcemia with significant findings; examples include: [ ]A. Altered mental status [ ]B. Muscle spasms [ ]C. Seizures [ ]D. Breathing difficulty [ ]E. Cardiac abnormality (eg, arrhythmia , conduction disturbance) [ ]3) Associated hypokalemia (potassium less than 3 mEq/L (mmol/L)) with risk of arrhythmia [ ]xix) Magnesium greater than 4 mEq/L (2 mmol/L) [ ]xx) Magnesium greater than 2.5 mEq/L (1.25 mmol/L) with significant symptoms or findings; examples include: [ ]1) Weakness [ ]2) Altered mental status [ ]3) Cardiac abnormality (eg, arrhythmia, conduction disturbance) [ ]4) Breathing difficulty [ ]5) Severe medical etiology (eg, renal failure, hypovolemia) [ ]xxi) Uric acid greater than 20 mg/dL (1190 micromoles/L)(76) [ ]xxii) Uric acid greater than 8 mg/dL (476 micromoles/L) with significant symptoms or findings of tumor lysis syndrome; examples include(76): [ ]1) Creatinine greater than 1.5 times upper limit of normal [ ]2) Cardiac abnormality (eg, arrhythmia, conduction disturbance) [ ]3) Seizure [ ]XX. Acute blood loss causing significant abnormality as indicated by ANY ONE of the following(77)(78): [ ]a) Hemoglobin less than 10 g/dL (100 g/L) (not baseline) [ ]b) Hematocrit less than 30% (0.30) (not baseline) [ ]c) Repeat hematocrit decreased more than 2% (0.02) [ ]d) Uncontrolled bleeding [ ]XXI. Severe anemia indicated by ANY ONE of the following(78)(79): [ ]a) Altered mental status [ ]b) Chest pain [ ]c) Exertional dyspnea [ ]d) Syncope [ ]e) Other findings suggesting inadequate perfusion [ ]f) Treatment with transfusion or volume replacement is ineffective at resolving ANY ONE of the following [G]: [ ]i) Tachycardia for age [ ]ii) Orthostatic vital sign changes as indicated by ANY ONE of the following(80): [ ]1) Fall in SBP of 20 mm Hg or more 1 to 3 minutes after patient sits or stands from recumbent position [ ]2) Fall in DBP of 10 mm Hg or more 1 to 3 minutes after patient sits or stands from recumbent position [ ]XXII. High-risk low platelet count as indicated by ANY ONE of the following( 81)(82): [ ]a) Severe or life-threatening bleeding (eg, intracranial, major gastrointestinal, or extensive mucosal bleeding), with any reduced platelet count [ ]b) Platelet count less than 20,000/mm3 (20 x109/L) with any active bleeding [ ]c) Platelet count less than 10,000/mm3 (10 x109/L) with minor purpura or petechiae [ ]d) Platelet count less than 5000/mm3 (5 x109/L) [ ]e) Low platelet count with hemolytic anemia [ ]XXIII. Disseminated intravascular coagulation(77)(83) [ ]XXIV. Severe adverse drug or systemic toxin reaction requiring inpatient treatment; examples include(84)(85): [ ]a) Serotonin syndrome(86) [ ]b) Neuroleptic malignant syndrome(86) [ ]c) Cholinergic syndrome with severe symptoms (eg, bronchorrhea, weakness, mental status changes, seizures) [ ]d) Sympathetic syndrome with severe symptoms (eg, seizures, mental status changes, cardiac dysrhythmias) [ ]e) Anticholinergic syndrome [ ]XXV. Severe pain requiring acute inpatient management as indicated by ALL of the following (87)(88)(89): [ ]a) Continuous or frequent (eg, every 2 to 4 hours) parenteral analgesics required [H] [ ]b) Rapid improvement expected from treatment or acute intervention (eg, surgery, anesthesia procedure) [ ]XXVI.Severe behavioral health issues judged unmanageable at a lower level of care (eg, residential) in a patient who is ANY ONE of the following(91) [ ]a) Acutely suicidal [ ]b) A danger to self (eg, self-mutilating or suicidal behavior) [ ]c) A danger to others (eg, assaultive or homicidal behavior) [ ]d) Incapacitated because of grave disability (eg, inability to provide for self at lower level of care) (92) [ ]XXVII. Inpatient monitoring needed; examples include(1)(3)(87)(93)(94)(95)(96 ): [ ]a) Vital signs, neurologic signs, or vascular checks more frequently than every 4 hours [ ]b) Cardiac or respiratory monitoring beyond the scope (eg, over 24 hours) of observation care [ ]c) Pulmonary artery catheter monitoring [ ]d) Suspected compartment syndrome(97) (98) [ ]e) Cerebral bleeding, hydrocephalus, or vasospasm monitoring [ ]f) Increased intracranial pressure or cerebral edema monitoring [ ]g) monitoring [ ]XXVIII. Treatment requiring inpatient care; examples include: [ ]a) IV fluid to replace significant ongoing losses (greater than 3 L/m2 per day)(53) [ ]b) High concentration oxygen (greater than 40%)(33)(99)(100) [ ]c) Frequent respiratory therapy (more frequently than every 4 hours) to maintain airflow rates greater than 60% of baseline(33)(99)(100) [ ]d) Epidural analgesia(87) [ ]e) IV anticoagulation, vasoactive, or antiarrhythmic medication(19 )(23) [ ]f) Acute thrombolytics (generally require 24 hours of observation )(101)(102) [ ]XXIX. Emergency procedures needed; examples include: [ ]a) Emergency inpatient surgery [ ]b) Temporary pacemaker placement(103) [ ]c) Chest tube placement with active evacuation (eg, suction, drainage)(104) [ ]d) Emergent cardioversion(105) [ ]e) Emergent cardiac or vascular procedures (eg, cardiac catheterization, angioplasty) (17)(18) [ ]f) Emergent dialysis access placement and institution(10)(106) [ ]g) Emergent pericardiocentesis(107) [ ]h) Emergent plasmapheresis or leukapheresis(83) [ ]i) Emergent tracheostomy The original [employer] content created by [employer] has been revised. The portions of the content which have been revised are identified through the use of italic text or in bold, and [employer] [employer] has neither reviewed nor approved the modified material. All other unmodified content is copyright [employer]. Please see references footnoted in the original [employer] edition 2016 Admission Criteria Met?: Yes DIEUDONNE SANCHEZ Feb 14, 2017 22:59
[2017-02-14] MEDS: POTASSIUM CHLORIDE 10MEQ 100 ML IV SCH (23:03)
[2017-02-14] MEDS: IV NORMAL SALINE 1000ML BAG 1,000 ML IV SCH (23:18)
[2017-02-15 00:30] VITALS: BP 144/92
[2017-02-15] MEDS: POTASSIUM CHLORIDE 10MEQ 100 ML IV SCH (00:45)
[2017-02-15] MEDS: IV NORMAL SALINE 1000ML BAG 1,000 ML IV SCH ×2 (00:46→14:37)
--- NOTE | 2017-02-15 06:31 | EKG ---
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
[2017-02-15 07:00] VITALS: BP 143/93
[2017-02-15 07:42] LABS: BASO % 1 % (0-3); EOS % 2 % (0-3); HEMATOCRIT 39.5 % (36.0-47.0); HEMOGLOBIN 13.4 g/dL (12.0-15.5); LYMPH # 1.3 x10^3/uL (1.0-4.8); LYMPH % 28 % (24-48); MEAN CORPUSCULAR HEMOGLOBIN 34 pg (25-35); MEAN CORPUSCULAR HGB CONC 34 g/dL (31-37); MEAN CORPUSCULAR VOLUME 100 fL (79-100); MONO % 9 % (0-9); NEUT % 60 % (31-73); PLATELET COUNT 231 x10^3/uL (140-400); RED BLOOD COUNT 3.97 x10^6/uL (3.50-5.40); RED CELL DISTRIBUTION WIDTH 13.7 % (11.5-14.5); WHITE BLOOD COUNT 4.5 x10^3/uL (4.0-11.0)
[2017-02-15 07:54] LABS: CREATININE 0.5 mg/dL (0.6-1.0); GFR 127.2; POTASSIUM 3.7 mmol/L (3.5-5.1)
[2017-02-15] MEDS ORDERED: CALCIUM GLUCONATE 1,000 MG in IV NORMAL SALINE 100ML 100 ML IV ONE (09:00)
[2017-02-15] MEDS ORDERED: CALCIUM CARBONATE 500 MG TAB.CHEW PO PRN (09:15)
[2017-02-15] MEDS ORDERED: ELECTROLYTE (NON-ICU) PROTOCOL MC PRN (09:15)
[2017-02-15] MEDS ORDERED: OMEP40CA5 PO (09:50)
[2017-02-15] MEDS ORDERED: EZET10TA18 PO (09:50)
[2017-02-15] MEDS ORDERED: MAGNESIUM OXIDE 400 MG TABLET PO SCH (10:00)
[2017-02-15] MEDS ORDERED: EZETIMIBE 10 MG TABLET. PO SCH (10:00)
[2017-02-15] MEDS ORDERED: ATENOLOL 25 MG TABLET. PO SCH (10:00)
[2017-02-15] MEDS ORDERED: amLODIPine BESYLATE 10 MG TABLET PO SCH ×2 (10:30→17:00)
[2017-02-15] MEDS ORDERED: MAGNESIUM SULFATE 2GM 50 ML IV PRN (10:30)
[2017-02-15] MEDS ORDERED: POTASSIUM CHLORIDE 8 MEQ TABLET.ER. PO SCH (10:30)
[2017-02-15 10:59] VITALS: BP 149/85
[2017-02-15] MEDS ORDERED: MAGNESIUM SULFATE 2GM 50 ML IV ONE (11:00)
[2017-02-15] MEDS ORDERED: PANTOPRAZOLE 40 MG TABLET.DR. PO SCH (11:30)
[2017-02-15] MEDS: IPRATRPIUM/ALBUTEROL 0.5/2.5MG 3 ML NEBU. NEB SCH ×2 (12:10→15:58)
--- NOTE | 2017-02-15 14:24 | RAD ---
Indication: Hypocalcemia. The patient was administered 22 mCi of technetium 99m sestamibi and early and delayed imaging over the neck was performed. Early images demonstrate normal fairly symmetric uptake of activity within both lobes of the thyroid gland. The delayed images demonstrate normal loss of activity from both lobes of the thyroid gland. No solitary focus of delayed intense uptake is seen to suggest a parathyroid mass. There does appear to be a region of photopenia in the mid aspect of the right lobe of the thyroid, suggestive of a thyroid lesion. Correlation with ultrasound is recommended. Impression: 1. No evidence of a parathyroid mass. There is a rounded region of photopenia in the mid right lobe of the thyroid suggestive of a thyroid mass. Correlation with ultrasound would be recommended.
[2017-02-15 14:58] VITALS: BP 160/94
[2017-02-15 16:50] VITALS: BP 160/94
[2017-02-15] MEDS ORDERED: LISINOPRIL 40 MG TABLET. PO SCH (17:00)
--- NOTE | 2017-02-15 17:53 | PDOC ---
Provider Note Provider Note H&P/ discharge summary dictated. severe weakness due to severe hypocalcemia, hypomagnesemia,hypokalemia in the setting of chronic hypertension, diarrhea, chronic gastritis, daily alcohol use and COPD. She required admission for IV replacement of all three electrolytes, her po BP meds were resumed, she recently has EGD/colonoscopy and is awaiting path reports, she is awaiting outpatient insurance approval of a thyroid sono, her parathyroids are normal on nuclear imaging. She was taken off oral calcium supplements earlier this year due to hypercalcemia CIPRIANO NIEVES MD Feb 15, 2017 17:53
--- NOTE | 2017-02-15 19:02 | PDOC3 ---
DATE OF ADMISSION Date of Admission 02/14/17 DATE OF DISCHARGE Discharge Date 02/15/17 PROBLEM LIST Problems: (1) Hypomagnesemia (2) Hypocalcemia (3) Hyponatremia (4) Hypocalcemia syndrome CONSULTS Consults none PROCEDURES Procedures none LABS Labs Laboratory Tests Test 02/14/17 20:20 02/14/17 20:27 02/15/17 06:30 02/15/17 11:25 White Blood Count 6.9 x10^3/uL (4.0-11.0) 4.5 x10^3/uL (4.0-11.0) Red Blood Count 3.99 x10^6/uL (3.50-5.40) 3.97 x10^6/uL (3.50-5.40) Hemoglobin 13.7 g/dL (12.0-15.5) 13.4 g/dL (12.0-15.5) Hematocrit 38.9 % (36.0-47.0) 39.5 % (36.0-47.0) Mean Corpuscular Volume 97 fL (79-100) 100 fL (79-100) Mean Corpuscular Hemoglobin 34 pg (25-35) 34 pg (25-35) Mean Corpuscular Hemoglobin Concent 35 g/dL (31-37) 34 g/dL (31-37) Red Cell Distribution Width 13.3 % (11.5-14.5) 13.7 % (11.5-14.5) Platelet Count 250 x10^3/uL (140-400) 231 x10^3/uL (140-400) Neutrophils (%) (Auto) 60 % (31-73) 60 % (31-73) Lymphocytes (%) (Auto) 33 % (24-48) 28 % (24-48) Monocytes (%) (Auto) 5 % (0-9) 9 % (0-9) Eosinophils (%) (Auto) 2 % (0-3) 2 % (0-3) Basophils (%) (Auto) 1 % (0-3) 1 % (0-3) Neutrophils # (Auto) 4.1 x10^3uL (1.8-7.7) 2.7 x10^3uL (1.8-7.7) Lymphocytes # (Auto) 2.3 x10^3/uL (1.0-4.8) 1.3 x10^3/uL (1.0-4.8) Monocytes # (Auto) 0.3 x10^3/uL (0.0-1.1) 0.4 x10^3/uL (0.0-1.1) Eosinophils # (Auto) 0.1 x10^3/uL (0.0-0.7) 0.1 x10^3/uL (0.0-0.7) Basophils # (Auto) 0.1 x10^3/uL (0.0-0.2) 0.0 x10^3/uL (0.0-0.2) Sodium Level 135 mmol/L (136-145) 143 mmol/L (136-145) Potassium Level 2.9 mmol/L (3.5-5.1) 3.7 mmol/L (3.5-5.1) Chloride Level 95 mmol/L (98-107) 107 mmol/L (98-107) Carbon Dioxide Level 27 mmol/L (21-32) 27 mmol/L (21-32) Anion Gap 13 (6-14) 21 mmol/L (6-14) 9 (6-14) Blood Urea Nitrogen 10 mg/dL (7-20) 6 mg/dL (7-20) Creatinine 0.6 mg/dL (0.6-1.0) 0.5 mg/dL (0.6-1.0) Estimated GFR (Cockcroft-Gault) 103.0 127.2 BUN/Creatinine Ratio 17 (6-20) Glucose Level 107 mg/dL (70-99) 103 mg/dL (70-99) 148 mg/dL (70-99) Calcium Level 7.1 mg/dL (8.5-10.1) 8.0 mg/dL (8.5-10.1) Magnesium Level 0.8 mg/dL (1.8-2.4) 1.6 mg/dL (1.8-2.4) Total Bilirubin 0.3 mg/dL (0.2-1.0) Aspartate Amino Transf (AST/SGOT) 18 U/L (15-37) Alanine Aminotransferase (ALT/SGPT) 29 U/L (14-59) Alkaline Phosphatase 77 U/L (46-116) Total Protein 7.0 g/dL (6.4-8.2) Albumin 3.6 g/dL (3.4-5.0) Albumin/Globulin Ratio 1.1 (1.0-1.7) Bedside Hemoglobin 13.9 g/dL (12-15) Bedside Hematocrit 41 % (36-40) Bedside Sodium 134 mmol/L (135-145) Bedside Potassium 3.0 mmol/L (3.5-5.0) Bedside Chloride 94 mmol/L (98-110) Bedside Total CO2 24 mmol/L (23-32) Bedside Blood Urea Nitrogen 9 mg/dL (8-26) Bedside Creatinine 0.7 mg/dL (0.5-1.4) Bedside Ionized Calcium (Andrea) 0.89 mmol/L (1.13-1.32) Phosphorus Level 2.9 mg/dL (2.6-4.7) Thyroid Stimulating Hormone (TSH) 1.371 uIU/mL (0.358-3.74) Lactic Acid Level 0.7 mmol/L (0.4-2.0) MEDICATIONS Medications Medications reviewed and reconciled for discharge. CHEIF COMPLAINT Cheif Complaint She presented to the ER and found to have a profoundly low calcium, potassium and magnesium to go along with muscle pain and weakness, she has been having GI issues and diarrhea and recently had an EGD/colonoscopy as an outpatient with findings of chronic gastritis and duodenitis and placed on pantoprazole, she does drink 5 beers daily and is in the process of having a thyroid mass evaluated. Her electrolytes were replaced with IV supplementation and her symptoms resolved and she is agreeable to complete her work up as an outpatient , she will continue her current meds, reduce her alcohol consumption, treat her diarrhea and resume her calcium supplement PAST MEDICAL HISTORY PMH HTN, hyperlipidemia, alcohol use, OA, COPD. tobacco use disorder PAST SURGICAL HISTORY PSH shouler and knee joint procedures, tubal, severino SOCIAL HISTORY SH + tobacco since age 8, 5 beers daily FAMILY HISTORY FH HTN ALLERGIES Allergies Allergies Coded Allergies Type Severity Reaction Last Updated Verified shellfish derived Allergy Intermediate Vomiting,Lethargy,[place] really bad Yes codeine Adverse Reaction Intermediate vomiting 10/25/16 Yes MEDICATIONS Meds Medications reviewed. REVIEW OF SYSTEMS ROS A 14 point ROS was completed with the following noted as positive: gastritis pain, diarrhea, occasional headaches, muscle pain and cramps Other systems reviewed and negative. PHYSICAL EXAM Subjective muscle pain and cramps Objective General; NAD, pleasant HEENT' unremarkable Neck; supple, normal ROM, non tender Heart; RRR no murmur, normal S1, S2 Lungs; CTA but diminished and prolonged expiration Abdomen; soft, epigastric tenderness in area of pyloris, no mass, no HSM, bowel sounds present Ext; no C/C/E Musculoskeletal; no synovitis or effusions, some muscular pain with palpation, no spasms Neuro: A&O, sensation intact Psych; normal affect and mood Vital Signs Vital Signs Date Time Temp Pulse Resp B/P (MAP) Pulse Ox O2 Delivery O2 Flow Rate FiO2 02/15/17 16:50 78 160/94 02/15/17 15:59 Room Air 02/15/17 14:58 97.5 18 93 97.5 Assessment 1.Hypocalcemia 2. hypokalemia 3. hypomagnesemia 4. hypertension 5. gastritis 6. likely IBS -D off calcium supplementation 7. thyroid mass [facility] NOTE [facility] Note Electrolytes were replaced IV, she felt much better and elected to finish work up as outpatient FOLLOW UP F/U 1 week in office , needs thyroid ultrasound, and lbs monitored, has GI appt to discuss endoscopy pathology DISPOSITION Dispo home with self care CIPRIANO NIEVES MD Feb 15, 2017 19:02
[2017-02-15 19:13] LABS: PTH INTACT 45 pg/mL (15-65)
[2017-02-16] MEDS ORDERED: NON FORMULARY ITEM (Tiotropium Bromide (Spiriva) 1 CAP) IH SCH (09:00)
== END 2017-02-15 18:21 | disposition home or self-care (01) ==
LOC: ER 19:47 → 5 SOUTH 22:39
PROVIDERS: ADMIT Family Medicine; ATTEND Family Medicine
DX: E87.6 Hypokalemia (principal); E83.42 Hypomagnesemia; E83.51 Hypocalcemia; I10 Essential (primary) hypertension; K29.50 Unspecified chronic gastritis without bleeding; E07.9 Disorder of thyroid, unspecified; E78.5 Hyperlipidemia, unspecified; M19.90 Unspecified osteoarthritis, unspecified site; J44.9 Chronic obstructive pulmonary disease, unspecified; E87.1 Hypo-osmolality and hyponatremia; K21.9 Gastro-esophageal reflux disease without esophagitis; Z82.49 Family history of ischemic heart disease and other diseases of the circulatory system; Z87.891 Personal history of nicotine dependence
CPT/HCPCS: 36415; 78070; 80047; 80048; 80053; 83605; 83735; 83970; 84100; 84443; 85027; 93005; 94250; 94640; 94760; 96361; 96365; 96366; 96367; 96368; 99285; A9500; G0378; J0610; J3480; J7030; J7060; J7620; 96374; G0379

== ENCOUNTER 2017-02-25 17:30 | Emergency (ER) | payer OTHER ==
[~2017-02-25] VITALS: Ht 162.6 cm; Wt 75.3 kg
[~2017-02-25 17:30] MED LIST changes: +EZET10TA18 PO
[2017-02-25] MEDS ORDERED: IV NORMAL SALINE 1000ML BAG 1,000 ML IV ONE (18:00)
--- NOTE | 2017-02-25 18:05 | PHYS DOC ---
Past Medical History Past Medical History: Diverticulitis, GERD, High Cholesterol, Hypertension Past Surgical History: Cholecystectomy, Tubal ligation Additional Past Surgical Histo: right knee; left foot Alcohol Use: Heavy Drug Use: None Adult General Chief Complaint Chief Complaint: DIZZY/LIGHT HEADED HPI HPI Patient is a 56 year old resents to the emergency department with complaints of dizziness since awakening this morning. Patient states this is a recurrent problem and she was in the emergency department 2 weeks ago for same complaint. Patient states she's been in the care of her primary care provider as well as a GI specialist. Patient states that she has had no headache, no blurred vision, no double vision, loss of vision, no chest pain, no abdominal pain. She denies nausea, vomiting. No diarrhea. Describes her dizziness to be off balance Review of Systems Review of Systems Constitutional: Denies fever or chills [] Eyes: Denies change in visual acuity, redness, or eye pain [] HENT: Denies nasal congestion or sore throat [] Respiratory: Denies cough or shortness of breath [] Cardiovascular: Denies chest pain, palpitations, exertional dyspnea, lower extremity edema GI: Denies abdominal pain, nausea, vomiting, bloody stools or diarrhea [] : Denies dysuria or hematuria [] Musculoskeletal: Denies back pain or joint pain [] Integument: Denies rash or skin lesions [] Neurologic: Denies headache, focal weakness or sensory changes, dizzy [] Endocrine: Denies polyuria or polydipsia [] Current Medications Current Medications Current Medications Medications (Trade) Dose Ordered Sig/Maryanne Start Time Stop Time Status Last Admin Dose Admin Potassium Chloride (Klor-Con) 40 meq 1X ONCE 02/25/17 18:45 02/25/17 18:46 02/25/17 18:32 40 MEQ Sodium Chloride 1,000 ml @ 1,000 mls/hr 1X ONCE 02/25/17 18:00 02/25/17 18:59 02/25/17 18:32 1,000 MLS/HR Allergies Allergies Allergies Coded Allergies Type Severity Reaction Last Updated Verified shellfish derived Allergy Intermediate Vomiting,Lethargy,[place] really bad Yes codeine Adverse Reaction Intermediate vomiting 10/25/16 Yes Physical Exam Physical Exam Constitutional: Well developed, well nourished, no acute distress, non-toxic appearance. [] HENT: Normocephalic, atraumatic, bilateral external ears normal, mucous membranes dry, no oral exudates, nose normal. [] Eyes: PERRLA, EOMI, conjunctiva normal, no discharge. [] Neck: Normal range of motion, no tenderness, supple, no stridor. [] Cardiovascular:Heart rate regular rhythm, no murmur [] Lungs & Thorax: Bilateral breath sounds clear to auscultation [] Abdomen: Bowel sounds normal, soft, no tenderness, no masses, no pulsatile masses. [] Skin: Warm, dry, no erythema, no rash. [] Back: No tenderness, no CVA tenderness. [] Extremities: No tenderness, no cyanosis, no clubbing, ROM intact, no edema. [] Neurologic: Alert and oriented X 3, normal motor function, normal sensory function, no focal deficits noted. Cranial or suture 12 are grossly intact. Muscle strength 5 over 5, DTRs 2 over 4 [] Psychologic: Affect normal, judgement normal, mood normal. [] Current Patient Data Vital Signs Vital Signs Date Time Temp Pulse Resp B/P (MAP) Pulse Ox O2 Delivery O2 Flow Rate FiO2 02/25/17 18:33 80 16 159/86 (110) 95 Room Air 02/25/17 17:40 98.8 98.8 Lab Values Laboratory Tests Test 02/25/17 17:50 White Blood Count 6.7 x10^3/uL (4.0-11.0) Red Blood Count 4.20 x10^6/uL (3.50-5.40) Hemoglobin 14.4 g/dL (12.0-15.5) Hematocrit 40.5 % (36.0-47.0) Mean Corpuscular Volume 97 fL (79-100) Mean Corpuscular Hemoglobin 34 pg (25-35) Mean Corpuscular Hemoglobin Concent 36 g/dL (31-37) Red Cell Distribution Width 13.6 % (11.5-14.5) Platelet Count 317 x10^3/uL (140-400) Neutrophils (%) (Auto) 67 % (31-73) Lymphocytes (%) (Auto) 25 % (24-48) Monocytes (%) (Auto) 6 % (0-9) Eosinophils (%) (Auto) 1 % (0-3) Basophils (%) (Auto) 1 % (0-3) Neutrophils # (Auto) 4.4 x10^3uL (1.8-7.7) Lymphocytes # (Auto) 1.7 x10^3/uL (1.0-4.8) Monocytes # (Auto) 0.4 x10^3/uL (0.0-1.1) Eosinophils # (Auto) 0.1 x10^3/uL (0.0-0.7) Basophils # (Auto) 0.0 x10^3/uL (0.0-0.2) Sodium Level 137 mmol/L (136-145) Potassium Level 3.3 mmol/L (3.5-5.1) L Chloride Level 98 mmol/L (98-107) Carbon Dioxide Level 27 mmol/L (21-32) Anion Gap 12 (6-14) Blood Urea Nitrogen 8 mg/dL (7-20) Creatinine 0.4 mg/dL (0.6-1.0) L Estimated GFR (Cockcroft-Gault) 164.5 BUN/Creatinine Ratio 20 (6-20) Glucose Level 94 mg/dL (70-99) Calcium Level 9.5 mg/dL (8.5-10.1) Total Bilirubin 0.4 mg/dL (0.2-1.0) Aspartate Amino Transferase (AST) 19 U/L (15-37) Alanine Aminotransferase (ALT) 33 U/L (14-59) Alkaline Phosphatase 78 U/L (46-116) Creatine Kinase 65 U/L (26-192) Creatine Kinase MB (Mass) 1.2 ng/mL (0.0-3.6) Creatine Kinase MB Relative Index 1.8 % (0-4) Troponin I Quantitative < 0.017 ng/mL (0.000-0.055) Total Protein 7.1 g/dL (6.4-8.2) Albumin 4.1 g/dL (3.4-5.0) Albumin/Globulin Ratio 1.4 (1.0-1.7) Laboratory Tests 02/25/17 17:50 Laboratory Tests 02/25/17 17:50 EKG EKG 1807: EKG reviewed and interpreted by Dr. Brooklyn Stiles, emergency medicine physician. No STEMI. [] Radiology/Procedures Radiology/Procedures [][facility] [address] [place] [address] IMAGING REPORT Signed PATIENT: HOLLY ANDERSON ACCOUNT: [id number] : 1960 LOCATION: ER AGE: 56 SEX: F EXAM STATUS: REG ER ORD. PHYSICIAN: ANA CHAPA APRN REASON: dizzy PROCEDURE: CT HEAD WO CONTRAST Indication: Hypertension and dizziness. Axial imaging through the brain was performed without contrast. One or more of the following individualized dose reduction techniques were utilized for this examination: 1. Automated exposure control 2. Adjustment of the mA and/or kV according to patient size 3. Use of iterative reconstruction technique No prior studies are available for comparison. The ventricles and sulci are within normal limits. No sulcal effacement, midline shift or hemorrhage is detected. The cisterns are patent. The visualized paranasal sinuses are clear. IMPRESSION: No acute intracranial process is detected. Electronically signed by: Gideon Lopez MD (02/25/2017 6:31 PM) [facility] DICTATED and SIGNED BY: GIDEON LOPEZ MD DATE: 02/25/171829 CC: CIPRIANO NIEVES MD; NON,STAFF; ANA CHAPA APRN ~ Course & Med Decision Making Course & Med Decision Making She reports that she is feeling better. Pertinent Labs and Imaging studies reviewed. (See chart for details) I spoke with the patient and/or care givers. I've explained the patient's condition, diagnosis and treatment plan based on the information available to me at this time. I've answered the patient's and/or care givers questions and a dressing concerns. The patient and/or care givers have as good an understanding of the patient's diagnosis, condition and treatment plan as can be expected at this time. Vital signs stable. The patient's condition is stable and appropriate for discharge from the emergency department. The patient will pursue further outpatient evaluation with the primary care physician or other designated or consulting physician as outlined in the discharge instructions. The patient and/or care givers are agreeable to this plan of care and follow-up instructions and explained in detail. The patient and /or care givers have received these instructions in written format and have expressed an understanding of the discharge instructions. The patient and/or caregivers are aware that any significant change in condition or worsening of symptoms should prompt immediate return to this closest emergency department or call to 911. [] Dragon Disclaimer Dragon Disclaimer This electronic medical record was generated, in whole or in part, using a voice recognition dictation system. Departure Departure Impression: Primary Impression: Hypokalemia Additional Impression: Dizzy spells Disposition: HOME, SELF-CARE Condition: STABLE Referrals: CIPRIANO NIEVES MD (PCP) Patient Instructions: Dizziness, Hypokalemia Additional Instructions: Continue current medications as prescribed by her primary care provider. Increase fluid intake. Problem Qualifiers ANA CHAPA PALLIATIVE CARE COORDINATOR Feb 25, 2017 18:05
[2017-02-25 18:07] LABS: BASO % 1 % (0-3); EOS % 1 % (0-3); HEMATOCRIT 40.5 % (36.0-47.0); HEMOGLOBIN 14.4 g/dL (12.0-15.5); LYMPH # 1.7 x10^3/uL (1.0-4.8); LYMPH % 25 % (24-48); MEAN CORPUSCULAR HEMOGLOBIN 34 pg (25-35); MEAN CORPUSCULAR HGB CONC 36 g/dL (31-37); MEAN CORPUSCULAR VOLUME 97 fL (79-100); MONO % 6 % (0-9); NEUT % 67 % (31-73); PLATELET COUNT 317 x10^3/uL (140-400); RED CELL DISTRIBUTION WIDTH 13.6 % (11.5-14.5); WHITE BLOOD COUNT 6.7 x10^3/uL (4.0-11.0)
[2017-02-25 18:21] LABS: CALCIUM 9.5 mg/dL (8.5-10.1); CREATININE 0.4 mg/dL (0.6-1.0); GFR 164.5; POTASSIUM 3.3 mmol/L (3.5-5.1)
[2017-02-25 18:26] LABS: ALBUMIN 4.1 g/dL (3.4-5.0); ALBUMIN/GLOBULIN RATIO 1.4 (1.0-1.7); TOTAL BILIRUBIN 0.4 mg/dL (0.2-1.0); TOTAL PROTEIN 7.1 g/dL (6.4-8.2)
[2017-02-25 18:34] LABS: CKMB MASS 1.2 ng/mL (0.0-3.6)
--- NOTE | 2017-02-25 18:34 | RAD ---
Indication: Hypertension and dizziness. Axial imaging through the brain was performed without contrast. One or more of the following individualized dose reduction techniques were utilized for this examination: 1. Automated exposure control 2. Adjustment of the mA and/or kV according to patient size 3. Use of iterative reconstruction technique No prior studies are available for comparison. The ventricles and sulci are within normal limits. No sulcal effacement, midline shift or hemorrhage is detected. The cisterns are patent. The visualized paranasal sinuses are clear. IMPRESSION: No acute intracranial process is detected. Electronically signed by: Gideon Lopez MD (02/25/2017 6:31 PM) [facility]
[2017-02-25] MEDS ORDERED: POTASSIUM CHLORIDE 20 MEQ TABLET.ER. PO ONE (18:45)
[2017-02-25 18:49] VITALS: BP 168/82
--- NOTE | 2017-02-26 11:35 | EKG ---
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
== END 2017-02-25 18:55 | disposition home or self-care (01) ==
LOC: ER 17:30
DX: E87.6 Hypokalemia (principal); R42 Dizziness and giddiness; K21.9 Gastro-esophageal reflux disease without esophagitis; E78.00 Pure hypercholesterolemia, unspecified; I10 Essential (primary) hypertension; F10.10 Alcohol abuse, uncomplicated; Z90.49 Acquired absence of other specified parts of digestive tract; Z98.51 Tubal ligation status; Z88.5 Allergy status to narcotic agent; Z91.013 Allergy to seafood
CPT/HCPCS: 36415; 70450; 80053; 82553; 84484; 85027; 93005; 99285; J7030

== ENCOUNTER → 2017-03-01 | Outpatient (CLI) | payer OTHER ==
[2017-02-25 18:49] VITALS: BP 168/82
--- NOTE | 2017-03-01 13:48 | KCIC ---
Indication: Thyroid nodules. The right lobe of the thyroid measures 5.4 x 2.4 x 2.0 cm and the left lobe measures 4.8 x 2.0 x 1.9 cm. The isthmus is 3 mm in thickness. There are multiple cysts identified in the lower pole of the right lobe, largest approximately 1.9 x 1.8 cm. There is a solid appearing complex nodule mid to upper pole right lobe measuring 1.4 x 0.9 x 1.2 cm. The left lobe does contain a complex, primarily cystic mass with thickened septations, measuring 1.6 x 1.3 x 1.5 cm. There is blood flow within the septations. Numerous additional subcentimeter colloid cysts are identified throughout the left lobe. IMPRESSION: Bilateral thyroid masses. The largest is solid on the right measuring 1.9 cm. A mixed solid and cystic mass on the left is also seen. Fine-needle aspiration of the larger lesions could be performed, if clinically indicated. Electronically signed by: Gideon Lopez MD (03/01/2017 1:44 PM) [id number]
== END | disposition home or self-care (01) ==
LOC: KCIC US 13:06
PROVIDERS: ATTEND Family Medicine
DX: E04.1 Nontoxic single thyroid nodule (principal)
CPT/HCPCS: 76536

== ENCOUNTER → 2017-03-18 | Outpatient (CLI) | payer OTHER ==
[~2017-03-18] VITALS: Ht 162.6 cm; Wt 72.1 kg
[~2017-03-18] MED LIST changes: +ESTR0.5T PO
[2017-03-18 08:47] VITALS: BP 148/88
--- NOTE | 2017-03-18 11:20 | RAD ---
ULTRASOUND-GUIDED FINE NEEDLE ASPIRATION 03/18/2017 Clinical Indication: Right thyroid nodule. Comparison: Thyroid ultrasound 03/01/2017. Technique: The risks, benefits, and alternatives of the procedure are discussed with the patient. Written informed consent is obtained. Skin site is prepped and draped in normal sterile fashion. 1% lidocaine is used for superficial and deep local anesthesia extending to the thyroid nodule. 3 separate passes were made with a 25-gauge needle. A single Rotex device into the right thyroid nodule was obtained. The patient tolerated the procedure well. There was no immediate complication. Findings: There is a dominant inferior right lobe thyroid cyst. The largest solid nodule in the mid/superior aspect of the right lobe of the thyroid measuring 2.0 x 0.9 x 1.3 cm. IMPRESSION: Ultrasound guided fine needle aspiration of a right thyroid nodule.
--- NOTE | 2017-03-22 08:24 | PATHOLOGY ---
CYTOPATHOLOGY REPORT CLINICAL HISTORY: Right thyroid nodule. SPECIMEN(S) RECEIVED: A.Fine needle aspiration, Right thyroid nodule FINAL DIAGNOSIS: Fine needle aspiration, right thyroid nodule: - [place] category: Benign - Aspirate reveals thyroid follicular cells with predominantly a macrofolicular architecture admixed with scant colloid and numerous macrophages. (see comment) COMMENT: These findings are consistent with a cystic follicular lesion, favor adenomatoid nodule in multinodular hyperplasia. Suggest clinical and radiological correlation as the material aspirated may not be mortician supplies sales representative. Diagnostic features of papillary carcinoma are not seen. (SHA:mgfrancesca; 03/21/2017) PATHOLOGIST: Grey Kumar M.D. REPORT ELECTRONICALLY SIGNED BY: Grey Kumar M.D. DATE/TIME: 03/22/2017 08:24 GROSS PATHOLOGY: A. Fine needle aspiration, Right thyroid nodule: The specimen is labeled "Holly Anderson" and consists of two fixed slides, two air dried slides, two H and E slides. Thirty mL of clear red fluid in fixative from the needle rinse is also submitted and one ThinPrep slide and a cell block were prepared from this material. (clt 03.18.2017) Also received is the RNARetain vial which will be held for molecular studies if needed. GRAVEL SCREENER(S): ELANA Barbour([facility]) INITIAL CPT CODE(S): A; 64516, 27360 Professional services performed by [employer], [address] [place] [address]. Technical services performed by [employer], [address] [place] [address], [address], [place] [address]. CC: Dr. Quan, [facility] Radiology, Fax; [phone] PATIENT: HOLLY ANDERSON /AGE: 10 1960 (Age: 56) SEX: F PATIENT #: [id number] ALT CASE #: SPECIMEN COLLECTION DATE: 03/18/2017 SPECIMEN RECEIVED DATE: 03/18/2017 [facility] [address] [facility] [address] [facility], [address] [place] [address] PHONE: [phone] DIRECTOR: Walker Heredia M.D. * * * END OF REPORT * * *
== END | disposition home or self-care (01) ==
LOC: US 08:23
PROVIDERS: ATTEND Family Medicine
DX: C34.11 Malignant neoplasm of upper lobe, right bronchus or lung (principal); E07.9 Disorder of thyroid, unspecified; E04.1 Nontoxic single thyroid nodule
CPT/HCPCS: 60300; 76942

== ENCOUNTER → 2017-04-04 | Outpatient (CLI) | payer OTHER ==
[2017-03-18 08:47] VITALS: BP 148/88
--- NOTE | 2017-04-04 13:40 | RAD ---
Carotid Doppler 04/04/2017 at 1011 hours Indication: Carotid bruit. Comparison: None available Technique: Sonographic imaging of the neck vessels performed utilizing grayscale, color Doppler and spectral waveform analysis. Findings: Right carotid: Peak systolic velocity: Calcified plaque greater than or equal to 50% diameter reduction. Proximal common carotid artery: 85 cm/s Middle common carotid artery 89 cm/s Distal common carotid artery: 85 cm/s Proximal internal carotid artery: 300 cm/s Mid internal carotid artery: 187 cm/s Distal internal carotid artery: 172 cm/s External carotid artery: 253 cm/s End-diastolic velocity: Proximal common carotid artery: 23 cm/s Middle common carotid artery 30 cm/s Distal common carotid artery: 28 cm/s Proximal internal carotid artery: 80 cm/s Mid internal carotid artery: 50 cm/s Distal internal carotid artery: 44 cm/s Proximal ICA/CCA ratio: 3.4 Mid ICA/ECA ratio: 2.1 Distal ICA/CCA ratio 1.9 Antegrade flow is identified within the vertebral artery. No subclavian stenosis. Left carotid: Calcified plaque greater than or equal to 50% diameter reduction. Proximal common carotid artery: 127 cm/s Middle common carotid artery 95 cm/s Distal common carotid artery: 79 cm/s Proximal internal carotid artery: 239 cm/s Mid internal carotid artery: 161 cm/s Distal internal carotid artery: 102 cm/s External carotid artery: 127 cm/s End- diastolic velocity: Proximal common carotid artery: 23 cm/s Middle common carotid artery 25 cm/s Distal common carotid artery: 21 cm/s Proximal internal carotid artery: 68 cm/s Mid internal carotid artery: 33 cm/s Distal internal carotid artery: 32 cm/s Proximal ICA/CCA ratio: 2.5 Mid ICA/CCA ratio: 1.7 Distal ICA/CCA ratio 1.1 Antegrade flow is identified in the vertebral artery. No subclavian stenosis. Impression: 1. There is greater than 70% stenosis of the proximal right internal carotid artery secondary to atherosclerotic disease at the carotid bifurcation. 2. There is greater than 70% stenosis of the proximal left internal carotid artery secondary to atherosclerotic disease at the carotid bifurcation. 3. Antegrade flow is identified in the vertebral arteries.
== END | disposition home or self-care (01) ==
LOC: US 10:07
PROVIDERS: ATTEND Family Medicine
DX: I65.23 Occlusion and stenosis of bilateral carotid arteries (principal); R09.89 Other specified symptoms and signs involving the circulatory and respiratory systems
CPT/HCPCS: 93880

== ENCOUNTER → 2017-05-10 | Outpatient (CLI) | payer OTHER ==
[2017-03-18 08:47] VITALS: BP 148/88
[~2017-05-10] MED LIST changes: +ASPI-612 PO; +ASPI-621 PO; -ASPI1TAB2 PO; +HYDR12.58 PO; +ISOS30TA4 PO; +MAGN400C PO; +POTA10TA12 PO; +SPIR100T2 PO
--- NOTE | 2017-05-10 11:37 | CARD ---
APPROVED REPORT EXAM: Two-dimensional and M-mode echocardiogram with Doppler and color Doppler. Other Information Quality : Average Rhythm : NSR INDICATION Hypertension/HCVD 2D DIMENSIONS RVDd2.7 (2.9-3.5cm)Left Atrium(2D)4.2 (1.6-4.0cm) IVSd1.1 (0.7-1.1cm)Aortic Root(2D)2.9 (2.0-3.7cm) LVDd4.9 (3.9-5.9cm)LVOT Diameter2.1 (1.8-2.4cm) PWd1.1 (0.7-1.1cm)LVDs3.1 (2.5-4.0cm) FS (%) 35.1 %SV75.8 ml LVEF(%)64.8 (>50%) Aortic Valve AoV Peak Buck.127.1cm/sAoV VTI23.4cm AO Peak GR.6.5mmHgLVOT Peak Buck.84.9cm/s LVOT VTI 17.28cmAO Mean GR.4mmHg ANTONIA (VMAX)2.13nc6UBR (VTI)2.52cm2 Mitral Valve MV E Utsupnzh78.0cm/sMV DECEL UUBI437zs MV A Hodzedbx43.6cm/sMV PZG39vb E/A Ratio1.1MV A Jqzcfvvb09tc MVA (PHT)2.62cm2 TDI E/Lateral E'7.0E/Medial E'8.9 Pulmonary Valve PV Peak Awqogqty31.9cm/sPV Peak Grad.3mmHg RVOT VTI14.5cm Tricuspid Valve TR P. Njryfyif741wc/sRAP BOGMOAPI4xuNg TR Peak Gr.13nqOtXIRB80ulUc Pulmonary Vein S1 Pxmejwap84.2cm/sD2 Rfoucrsy56.9cm/s LEFT VENTRICLE The left ventricle is normal size. There is normal left ventricular wall thickness. Left ventricle sy stolic function is normal. The Ejection Fraction is 60-65%. There is normal LV segmental wall motion. The left ventricular diastolic function and filling is normal for age. There is no ventricular septa l defect visualized. RIGHT VENTRICLE The right ventricle is normal size. The right ventricular systolic function is normal. ATRIA The left atrium is borderline dilated. The right atrium size is normal. The interatrial septum is int act with no evidence for an atrial septal defect or patent foramen ovale as noted on 2-D or Doppler i maging. AORTIC VALVE The aortic valve is mildly calcified. The aortic valve is trileaflet. Doppler and Color Flow revealed no significant aortic regurgitation. There is no significant aortic valvular stenosis. MITRAL VALVE The mitral valve is normal in structure. There is no mitral valve stenosis. Doppler and Color Flow re vealed mild mitral regurgitation. TRICUSPID VALVE The tricuspid valve is normal in structure and function. Doppler and Color Flow revealed trace tricus pid regurgitation. The PA pressure was estimated at 19 mmHg. There is no tricuspid valve stenosis. PULMONIC VALVE The pulmonic valve is not well visualized. Doppler and Color Flow revealed no pulmonic valvular regur gitation. There is no pulmonic valvular stenosis. GREAT VESSELS The aortic root is normal in size. The ascending aorta is normal in size. Normal pulmonary venous jessica w (Doppler). The IVC is normal in size and collapses >50% with inspiration. PERICARDIAL EFFUSION There is no evidence of significant pericardial effusion. Critical Notification Critical Value: No <Conclusion> Left ventricle systolic function is normal. The Ejection Fraction is 60-65%. There is normal LV segmental wall motion. Mild mitral regurgitation. Trace tricuspid regurgitation. The PA pressure was estimated at 19 mmHg. There is no evidence of significant pericardial effusion.
== END | disposition home or self-care (01) ==
LOC: ECHO 09:27
PROVIDERS: ATTEND Internal Medicine Cardiovascular Disease
DX: I08.1 Rheumatic disorders of both mitral and tricuspid valves (principal); I11.9 Hypertensive heart disease without heart failure
CPT/HCPCS: 93306

== ENCOUNTER 2017-06-15 07:09 | Day surgery (SDC) | payer OTHER ==
[~2017-06-15] VITALS: Ht 160 cm; Wt 76.2 kg
[~2017-06-15 07:09] MED LIST changes: +HYDROmorphone 2 MG/ML VIAL IV PRN; +IV RINGERS,LACTATED 1000ML 1,000 ML IV SCH; +LIDOCAINE 1% PF 2 ML VIAL. ID PRN; +MORPHINE SULFATE 2 MG/ML DISP.SYRIN. IV PRN; +ONDANSETRON PF 4 MG/2 ML VIAL. IV PRN; +PROCHLORPERAZINE 10 MG/2 ML VIAL. IV PRN; +fentaNYL PF VIAL 100 MCG/2 ML VIAL IV PRN
[2017-06-15] MEDS ORDERED: LIDOCAINE 1% 20 ML VIAL. ONE (07:26)
[2017-06-15] MEDS ORDERED: BUPIVACAINE 0.5% 50 ML VIAL. ONE ×2 (07:26→08:14)
[2017-06-15] MEDS ORDERED: EPINEPHrine VIAL 30 MG/30 ML VIAL ONE (07:30)
[2017-06-15] MEDS ORDERED: ROCURONIUM 100 MG/10 ML VIAL. ONE (07:39)
[2017-06-15] MEDS ORDERED: LIDOCAINE 2% PF Vial for OR 5 ML VIAL. ONE (07:39)
[2017-06-15] MEDS ORDERED: PROPOFOL 20 ML IV ONE (07:39)
[2017-06-15] MEDS ORDERED: fentaNYL PF VIAL 100 MCG/2 ML VIAL ONE ×2 (07:39→09:14)
[2017-06-15] MEDS ORDERED: SUCCINYLCHOLINE 200 MG/10 ML VIAL. ONE (07:39)
--- NOTE | 2017-06-15 08:06 | DISCH ---
DISCHARGE INSTRUCTIONS Condition on Discharge Condition on Discharge: Stable Activity After Discharge Activity Instructions for Disc: Other, see below Other activity instructions: arm to remain in sling Bathing Instructions: Shower-keep dressing dry Weight Bearing Status after Di: Non weight bearing Diet after Discharge Diet after Discharge: Regular Wound Incision Care Wound/Incision Care: Ice to area for comfort, Keep wound/cast CDI, Change dressing Contacting the DR. after DC Call your doctor for: Concerns you may have Follow-Up Follow up with: Elliot in 2 wks MEGGAN SANFORD II, MD Jun 15, 2017 08:06
--- NOTE | 2017-06-15 08:07 | PDOC ---
BRIEF OPERATIVE NOTE Date: Jun 15, 2017 Pre-Op Diagnosis RTC tear Post-Op Diagnosis same Procedure Performed shoulder arthroscopy, RTC repair Surgeon Elliot Back Maker Alisia Anesthesiologist Vidal Anesthesia Type: General, Regional MEGGAN SANFORD II, MD Jun 15, 2017 08:07
[2017-06-15] MEDS ORDERED: EPINEPHrine 1 MG/ML VIAL ONE (08:13)
[2017-06-15] MEDS ORDERED: MIDAZOLAM HCL/PF 2 MG/2 ML VIAL. ONE (08:13)
[2017-06-15] MEDS ORDERED: DEXAMETHASONE SOD PHOS 20 MG/5 ML VIAL. ONE (08:36)
[2017-06-15] MEDS ORDERED: SEVOFLURANE 61 TO 120 MINUTES. IH ONE (08:46)
[2017-06-15] MEDS ORDERED: SCOPOLAMINE 1.5MG PATCH. TD SCH (09:00)
[2017-06-15] MEDS ORDERED: PHENYLEPHRINE in 0.9% NACL PF 1 MG/10 ML DISP.SYRIN. IV ONE ×2 (09:02→09:06)
[2017-06-15] MEDS ORDERED: ONDANSETRON PF 4 MG/2 ML VIAL. ONE (09:02)
[2017-06-15] MEDS ORDERED: NEOSTIGMINE 10 MG/10 ML VIAL. ONE (09:26)
[2017-06-15] MEDS ORDERED: GLYCOPYRROLATE 1 MG/5 ML VIAL. ONE (09:27)
[2017-06-15] MEDS ORDERED: ALBUTEROL SULFATE 2.5 MG/3 ML NEBU. NEB ONE (10:15)
--- NOTE | 2017-06-15 10:32 | OP ---
DATE OF SURGERY: 06/15/2017 SURGEON: Scot Sanford MD STEEL MOLDER: Sweta Crump. ANESTHESIA: General plus regional nerve block. PREOPERATIVE DIAGNOSIS: Right shoulder rotator cuff tear. POSTOPERATIVE DIAGNOSIS: Right shoulder rotator cuff tear. PROCEDURE PERFORMED: Right shoulder arthroscopic rotator cuff repair. COMPONENTS INSERTED: [employer] HEALICOIL suture anchor x 1. FINDINGS: 1. The patient had some degenerative type fraying around her labrum. Her humeral head and glenoid articular cartilage was intact. 2, She had a near complete supraspinatus tear. 3. She had some longitudinal split in her biceps tendon for about 1.5 cm. Her subscapularis showed some longitudinal tearing, but was intact. Labrum was intact circumferentially. REASON FOR PROCEDURE: The patient is a very pleasant 57-year-old female who presented initially with bilateral shoulder pain, was found to have a left rotator cuff tear, which we proceeded to repair and the shoulder for her worse. Once she had recovered adequately from this, we investigated her right shoulder. She had previously undergone therapy and injections for her right shoulder. She had the supraspinatus tear that was near complete and because of failure of conservative therapy, her pain and dysfunction, and the clinical and radiographic evidence, I had a discussion of risks, benefits, alternatives to proceeding with the above surgery with her and she elected to proceed. DESCRIPTION OF PROCEDURE: The patient was greeted in the preoperative area by myself and the correct extremity was marked and verified. She was taken back to the operative suite and antibiotics were started en route. Once in the OR, she was transferred gently supine to the OR table after successful induction of general anesthetic. We then set her up in a beach chair position with large pad under her hips and legs. Her C-spine was maintained in a neutral position. We then proceeded to prep and drape right upper extremity and shoulder girdle in our usual sterile fashion. Ioban was used at the periphery of the drapes. We then conducted a standard preoperative timeout. I then palpated and marked her surface anatomy and used a spinal needle to localize a posterosuperior portal. I incised skin in accordance with this and then introduced blunt arthroscopic trocar into the glenohumeral joint, followed by the camera. I then used spinal to localize my anterosuperior portal and incised skin in accordance with this. I dilated this hole. I next inserted the probe and then conducted my diagnostic arthroscopy with the above-noted findings. I did debride some of the rotator cuff tear from this vantage point as well. I then introduced the camera into the subacromial space and used a spinal to localize the lateral portal. I then made this incision and inserted the blunt arthroscopic trocar into the subacromial space. I was easily able to enter the rotator cuff tendon at the leading edge of the supraspinatus, where I could see a lot of fraying and degenerative type changes. I then used the shaver to debride this area as well as performed a bursectomy. I used the electrocautery to cauterize a couple of bleeders. After debriding the rotator cuff footprint and tear, I inspected the tear, it was approximately 1 cm and was full thickness. After this, I placed my cannula, followed by using my awl at the rotator cuff footprint for my HEALICOIL suture anchor. I then created an accessory anterolateral portal with a spinal needle to localize it and inserted my through this and withdrew the sutures through this except for one limb. I then used the [employer] FirstPass device to shuttle the sutures through in a simple configuration. I then tied these down using arthroscopic knot tying techniques and cut the suture limbs. I inspected my repair and noted no gapping on gentle range of motion. We then removed all excess arthroscopic fluid and the arthroscopic instrumentation. The portals were then closed with simple interrupted 2-0 nylon. The arm was cleansed and dried and a sterile dressing was applied. We then placed her into abduction pillow sling. She tolerated the surgery well. At the conclusion of the surgery, she was awakened from anesthesia and laid gently supine. She was transferred gently supine to the recovery room cart and taken to PACU in stable and extubated condition. Postoperative plan is for her to be nonweightbearing. She will be discharged home. She will be nonweightbearing x 4 weeks. We will get her started on PT soon. She will follow up with me in 2 weeks, sooner should problems arise. SCOT SANFORD MD DR: EUN/sofia JOB#: [id number] / [id number]
[2017-06-15 13:05] VITALS: BP 104/59
== END 2017-06-15 13:35 | disposition home or self-care (01) ==
LOC: SURG 07:09
PROVIDERS: ATTEND Orthopaedic Surgery Sports Medicine
PROC: 0LQ14ZZ Repair Right Shoulder Tendon, Percutaneous Endoscopic Approach (ICD-10-PCS; principal; 2017-06-15 08:45)
DX: S46.011A Strain of muscle(s) and tendon(s) of the rotator cuff of right shoulder, initial encounter (principal); X58.XXXA Exposure to other specified factors, initial encounter; Y93.89 Activity, other specified; Y92.89 Other specified places as the place of occurrence of the external cause; Y99.8 Other external cause status; F17.200 Nicotine dependence, unspecified, uncomplicated; E78.00 Pure hypercholesterolemia, unspecified; I10 Essential (primary) hypertension; J44.9 Chronic obstructive pulmonary disease, unspecified; K21.9 Gastro-esophageal reflux disease without esophagitis; Z90.49 Acquired absence of other specified parts of digestive tract; Z87.39 Personal history of other diseases of the musculoskeletal system and connective tissue; Z86.69 Personal history of other diseases of the nervous system and sense organs; Z86.39 Personal history of other endocrine, nutritional and metabolic disease; Z98.51 Tubal ligation status; Z72.0 Tobacco use; Z72.89 Other problems related to lifestyle; Z88.6 Allergy status to analgesic agent; Z91.013 Allergy to seafood
CPT/HCPCS: 29827; C1782; J0171; J0330; J0690; J0780; J1100; J2250; J2370; J2405; J2704; J2710; J3010; J3490; J7613; J2001

== ENCOUNTER → 2019-11-06 | Outpatient (CLI) | payer OTHER ==
[~2019-11-06] MED LIST changes: -AMLO1CAP15 PO; +AMLO1CAP54 PO; +AMLO5TAB10 PO; -AMLO5TAB2 PO; -EZET10TA18 PO; +EZET10TA20 PO; -HYDROmorphone 2 MG/ML VIAL IV PRN; -IV RINGERS,LACTATED 1000ML 1,000 ML IV SCH; -LIDOCAINE 1% PF 2 ML VIAL. ID PRN; -MORPHINE SULFATE 2 MG/ML DISP.SYRIN. IV PRN; +OMEP40CA45 PO; -OMEP40CA5 PO; -ONDANSETRON PF 4 MG/2 ML VIAL. IV PRN; -OXYC-323 PO; +OXYC1TAB15 PO; -POTA10TA12 PO; +POTASSIUM CHLO10 ME1 PO; -PROCHLORPERAZINE 10 MG/2 ML VIAL. IV PRN; -SPIR100T2 PO; +SPIR100T4 PO; -fentaNYL PF VIAL 100 MCG/2 ML VIAL IV PRN
--- NOTE | 2019-11-06 15:30 | KCIC ---
EXAM: Carotid Doppler sonogram. HISTORY: Carotid artery disease. TECHNIQUE: Villegas scale and color Doppler sonographic evaluation of the neck with spectral waveform analysis was performed and static images are submitted for review. FINDINGS: There is mild atherosclerotic plaque within the right carotid bulb and proximal right internal and external carotid arteries. There is moderate to severe atherosclerotic plaque within the left common carotid artery, carotid bulb and maximal internal and external carotid arteries. The peak systolic velocity within the right common carotid artery is 98 cm/sec. The peak systolic velocity within the right internal carotid artery is 99 cm/sec and the end diastolic velocity within the right internal carotid artery is 30 cm/sec. The right ICA/CCA ratio is 1.25. The peak systolic velocity within the left common carotid artery is 86 cm/sec. The peak systolic velocity within the left internal carotid artery is 331 cm/sec and the end diastolic velocity within the left internal carotid artery is 82 cm/sec. The left ICA/CCA ratio is 4.41. There is normal antegrade flow within both vertebral arteries. There is an elevated peak systolic velocity within the right external carotid artery measuring 235 cm/s. IMPRESSION: 1. Doppler findings suggesting greater than 70 percent stenosis involving the left ICA. 2. No Doppler evidence of greater than 50 percent stenosis on the right ICA. 3. Findings suggesting hemodynamically significant stenosis involving the right external carotid artery. 4. Mild atherosclerotic plaque within the right carotid bulb and proximal right internal and external carotid arteries. There is moderate to severe atherosclerotic plaque within the left common carotid artery, carotid bulb and maximal internal and external carotid arteries. PQRS Compliance Statement - Stenosis calculations for CT, MR and conventional angiography are based upon measurement of the distal ICA diameter in accordance with the NASCET methodology. Stenosis calculations for carotid ultrasound studies are derived from validated velocity criteria which are known to correlate with the NASCET methodology. Electronically signed by: Becky Duke MD (11/06/2019 3:27 PM) [id number]
== END | disposition home or self-care (01) ==
LOC: KCIC US 14:04
PROVIDERS: ATTEND Family Medicine
DX: I65.23 Occlusion and stenosis of bilateral carotid arteries (principal)
CPT/HCPCS: 93880

== ENCOUNTER 2020-03-28 16:20 | Inpatient (IN) | payer OTHER ==
[~2020-03-28] VITALS: Ht 162.6 cm; Wt 72.2 kg
[~2020-03-28 16:20] MED LIST changes: -ASPI-612 PO; +ASPI-886 PO
[2020-03-28 17:10] LABS: BASO % 1 % (0-3); EOS # 0.1 x10^3/uL (0.0-0.7); EOS % 2 % (0-3); HEMATOCRIT 42.4 % (36.0-47.0); LYMPH # 1.5 x10^3/uL (1.0-4.8); LYMPH % 24 % (24-48); MEAN CORPUSCULAR HEMOGLOBIN 35 pg (25-35); MEAN CORPUSCULAR HGB CONC 35 g/dL (31-37); MEAN CORPUSCULAR VOLUME 99 fL (79-100); MONO # 0.5 x10^3/uL (0.0-1.1); MONO % 8 % (0-9); NEUT # 4.2 x10^3/uL (1.8-7.7); NEUT % 66 % (31-73); PLATELET COUNT 236 x10^3/uL (140-400); RED BLOOD COUNT 4.28 x10^6/uL (3.50-5.40); WHITE BLOOD COUNT 6.4 x10^3/uL (4.0-11.0)
[2020-03-28 17:24] LABS: CALCIUM 8.3 mg/dL (8.5-10.1); CREATININE 0.6 mg/dL (0.6-1.0)
[2020-03-28 17:29] LABS: ALBUMIN 4.5 g/dL (3.4-5.0); DIRECT BILIRUBIN 0.1 mg/dL (0.0-0.2); TOTAL BILIRUBIN 0.7 mg/dL (0.2-1.0); TOTAL PROTEIN 7.8 g/dL (6.4-8.2)
[2020-03-28] MEDS ORDERED: IV NORMAL SALINE 1000ML BAG 1,000 ML IV ONE (17:30)
[2020-03-28 17:47] LABS: PLT ESTIMATE ADEQUATE (ADEQUATE)
[2020-03-28 17:59] LABS: BILIRUBIN,URINE NEGATIVE (NEG); CLARITY,URINE CLEAR; COLOR,URINE YELLOW; NITRITE,URINE NEGATIVE (NEG); PH,URINE 6.5 (<5.0-8.0); PROTEIN,URINE NEGATIVE (NEG-TRACE); UROBILINOGEN,URINE 0.2 mg/dL (0.2 mg/dL)
[2020-03-28] MEDS ORDERED: MAGNESIUM SULFATE 2GM 50 ML IV ONE (18:00)
[2020-03-28 18:05] LABS: BACTERIA,URINE FEW /HPF (0-FEW); RBC,URINE OCC /HPF (0-2); SQUAMOUS EPITHELIAL CELL,UR FEW /LPF; WBC,URINE OCC /HPF (0-4)
[2020-03-28] MEDS ORDERED: dilTIAZem IV PUSH 25 MG/5 ML VIAL IVP ONE (18:15)
--- NOTE | 2020-03-28 18:19 | PHYS DOC ---
Past Medical History Past Medical History: Diverticulitis, GERD, High Cholesterol, Hypertension Additional Past Medical Histor: Hypokalemia Past Surgical History: Cholecystectomy, Tubal ligation Additional Past Surgical Histo: right knee; left foot,carotid endarterectomy Smoking Status: Current Every Day Smoker Additional Information: 1 1/2 PACK A DAY Alcohol Use: Heavy Additional Information: 6 BEERS A NIGHT Drug Use: None General Adult EDM: Chief Complaint: ABNORMAL LABS HPI: HPI: 59-year-old female presenting the emergency department today feeling weak as if her electrolytes are off. She feels shaky in the hands and some numbness around the face which is not focal but more around the lips bilaterally. She denies any pain. She feels more weak than normal. She denies any focal weakness. She denies slurred speech or vision changes. She denies headache or head injury. Review of systems negative for chest pain shortness of breath vomiting abdominal pain fevers or chills. All other review of systems negative. ED course: 59-year-old female presenting with generalized weakness.. On arrival she is tachycardic around 110. She is afebrile. Blood pressure elevated to 171/103. EKG obtained and reviewed by myself shows A. fib with RVR. Irregularly irregular rhythm. Tachycardia present. ST segments congruent. Not suggestive of acute ischemia. Magnesium is severely low. Potassium within normal limits. We will need to replete the patient's magnesium with IV magnesium. We gave the patient 1 dose of IV diltiazem here in the emergency department. Will admit the patient for cardiology consultation given new onset of A. fib. Lovenox given here. I spoke with Dr. Edwards who accepts patient for admission. Heart Score: Risk Factors: Risk Factors: DM, Current or recent (<one month) smoker, HTN, HLP, family history of CAD, obesity. Risk Scores: Score 0 - 3: 2.5% MACE over next 6 weeks - Discharge Home Score 4 - 6: 20.3% MACE over next 6 weeks - Admit for Clinical Observation Score 7 - 10: 72.7% MACE over next 6 weeks - Early Invasive Strategies Current Medications: Current Medications Medications (Trade) Dose Ordered Sig/Maryanne Start Time Stop Time Status Last Admin Dose Admin Magnesium Sulfate 50 ml @ 25 mls/hr 1X ONCE 03/28/20 18:00 03/28/20 19:59 Sodium Chloride 1,000 ml @ 1,000 mls/hr 1X ONCE 03/28/20 17:30 03/28/20 18:29 03/28/20 17:21 1,000 MLS/HR Allergies: Allergies: Allergies Coded Allergies Type Severity Reaction Last Updated Verified shellfish derived Allergy Severe THROAT SWELLING 06/15/17 Yes codeine Adverse Reaction Intermediate vomiting 06/15/17 Yes Physical Exam: PE: Constitutional: Well developed, well nourished, no acute distress, non-toxic appearance. HENT: Normocephalic, atraumatic, bilateral external ears normal, oropharynx moist, no oral exudates, nose normal. Eyes: PERRLA, EOMI, conjunctiva normal, no discharge. [] Neck: Normal range of motion, no tenderness, supple, no stridor. [] Cardiovascular: Tachycardic with irregular rhythm. Lungs & Thorax: Bilateral breath sounds clear to auscultation [] Abdomen: Bowel sounds normal, soft, no tenderness, no masses, no pulsatile masses. Skin: Warm, dry, no erythema, no rash. [] Back: No tenderness, no CVA tenderness. [] Extremities: No tenderness, no cyanosis, no clubbing, ROM intact, no edema. Neurologic: Alert and oriented X 3, normal motor function, normal sensory function, no focal deficits noted. Psychologic: Affect normal, judgement normal, mood normal. [] Current Patient Data: Labs: Laboratory Tests Test 03/28/20 16:51 03/28/20 17:41 White Blood Count 6.4 x10^3/uL (4.0-11.0) Red Blood Count 4.28 x10^6/uL (3.50-5.40) Hemoglobin 15.0 g/dL (12.0-15.5) Hematocrit 42.4 % (36.0-47.0) Mean Corpuscular Volume 99 fL (79-100) Mean Corpuscular Hemoglobin 35 pg (25-35) Mean Corpuscular Hemoglobin Concent 35 g/dL (31-37) Red Cell Distribution Width 14.0 % (11.5-14.5) Platelet Count 236 x10^3/uL (140-400) Neutrophils (%) (Auto) 66 % (31-73) Lymphocytes (%) (Auto) 24 % (24-48) Monocytes (%) (Auto) 8 % (0-9) Eosinophils (%) (Auto) 2 % (0-3) Basophils (%) (Auto) 1 % (0-3) Neutrophils # (Auto) 4.2 x10^3/uL (1.8-7.7) Lymphocytes # (Auto) 1.5 x10^3/uL (1.0-4.8) Monocytes # (Auto) 0.5 x10^3/uL (0.0-1.1) Eosinophils # (Auto) 0.1 x10^3/uL (0.0-0.7) Basophils # (Auto) 0.0 x10^3/uL (0.0-0.2) Platelet Estimate Adequate (ADEQUATE) Sodium Level 141 mmol/L (136-145) Potassium Level 4.0 mmol/L (3.5-5.1) Chloride Level 100 mmol/L (98-107) Carbon Dioxide Level 29 mmol/L (21-32) Anion Gap 12 (6-14) Blood Urea Nitrogen 12 mg/dL (7-20) Creatinine 0.6 mg/dL (0.6-1.0) Estimated GFR (Cockcroft-Gault) 102.0 Glucose Level 109 mg/dL (70-99) H Calcium Level 8.3 mg/dL (8.5-10.1) L Magnesium Level 0.9 mg/dL (1.8-2.4) L Total Bilirubin 0.7 mg/dL (0.2-1.0) Direct Bilirubin 0.1 mg/dL (0.0-0.2) Aspartate Amino Transferase (AST) 30 U/L (15-37) Alanine Aminotransferase (ALT) 42 U/L (14-59) Alkaline Phosphatase 98 U/L (46-116) Troponin I Quantitative < 0.017 ng/mL (0.000-0.055) Total Protein 7.8 g/dL (6.4-8.2) Albumin 4.5 g/dL (3.4-5.0) Lipase 125 U/L (73-393) Urine Collection Type Unknown Urine Color Yellow Urine Clarity Clear Urine pH 6.5 (<5.0-8.0) Urine Specific Trion <=1.005 (1.000-1.030) Urine Protein Negative mg/dL (NEG-TRACE) Urine Glucose (UA) Negative mg/dL (NEG) Urine Ketones (Stick) Negative mg/dL (NEG) Urine Blood Negative (NEG) Urine Nitrite Negative (NEG) Urine Bilirubin Negative (NEG) Urine Urobilinogen Dipstick 0.2 mg/dL (0.2 mg/dL) Urine Leukocyte Esterase Negative (NEG) Urine RBC Occ /HPF (0-2) Urine WBC Occ /HPF (0-4) Urine Squamous Epithelial Cells Few /LPF Urine Bacteria Few /HPF (0-FEW) Laboratory Tests 03/28/20 16:51 Laboratory Tests 03/28/20 16:51 Vital Signs: Vital Signs Date Time Temp Pulse Resp B/P (MAP) Pulse Ox O2 Delivery O2 Flow Rate FiO2 03/28/20 16:20 98.7 111 16 171/103 (125) 94 Room Air 98.7 EKG: EKG: [] Radiology/Procedures: Radiology/Procedures: [] Course & Med Decision Making: Course & Med Decision Making Pertinent Labs and Imaging studies reviewed. (See chart for details) [] Dragon Disclaimer: Dragon Disclaimer: This electronic medical record was generated, in whole or in part, using a voice recognition dictation system. Departure Departure Impression: Primary Impression: Hypomagnesemia Additional Impression: Atrial fibrillation with RVR Disposition: ADMITTED INPATIENT Admitting Physician: PRAKASH Condition: STABLE Referrals: Meg NIEVES MD (PCP) Justicifation of Admission Dx: Justifications for Admission: Justification of Admission Dx: Yes Comments: IV magnesium therapy ELIAZAR OLVERA MD Mar 28, 2020 18:18
[2020-03-28 18:40] LABS: PROTHROMBIN TIME PATIENT 12.2 SEC (11.7-14.0)
--- NOTE | 2020-03-28 18:52 | HP ---
ADMIT DATE: 03/28/2020 CHIEF COMPLAINT: Palpitations. HISTORY OF PRESENT ILLNESS: The patient is a pleasant middle-aged female who presented with palpitations. While in the ER, she was noted to be in AFib with RVR. I discussed the case with ER physician. We are going to admit the patient and consult Cardiology. PAST MEDICAL HISTORY: Reviewed in computerized system. Please refer to the patient's H and P. She does have no prior history of AFib. She has some mild COPD, asthma, tobacco abuse, hypertension, edema, hypomagnesemia, GERD, hypokalemia. ALLERGIES: CODEINE AND SHELLFISH. FAMILY HISTORY: Coronary artery disease. SOCIAL HISTORY: I believe she smokes. No drink or drugs. She is . MEDICATIONS: Reviewed, please refer to MRAD. REVIEW OF SYSTEMS: GENERAL: No history of weight change, weakness or fevers. SKIN: No bruising, hair changes or rashes. EYES: No blurred, double or loss of vision. NOSE AND THROAT: No history of nosebleeds, hoarseness or sore throat. HEART: No history of palpitations, chest pain or shortness of breath on exertion. LUNGS: Denies cough, hemoptysis, wheezing or shortness of breath. GASTROINTESTINAL: Denies changes in appetite, nausea, vomiting, diarrhea or constipation. GENITOURINARY: No history of frequency, urgency, hesitancy or nocturia. NEUROLOGIC: Denies history of numbness, tingling, tremor or weakness. PSYCHIATRIC: No history of panic, anxiety or depression. ENDOCRINE: No history of heat or cold intolerance, polyuria or polydipsia. EXTREMITIES: Denies muscle weakness, joint pain, pain on walking or stiffness. PHYSICAL EXAMINATION: VITALS: Within normal limits and are stable. GENERAL: No apparent distress. Alert and oriented. HEENT: Normal cephalic atraumatic, external auditory canals are patent EYES: Extraocular muscles are intact, pupils are equally round and reactive to light and accommodation MUSCULOSKELETAL: Well developed, well nourished, good range of motion ENDOCRINE: No thyromegaly was palpated LYMPHATICS: No cervical chain or axillary nodes were noted HEMATOPOIETIC: No bruising NECK: Supple, no JVD, no thyromegaly was noted. LUNGS: Clear to auscultation in all lung taylor without rhonchi or wheezing. HEART: She has irregular S1 and S2 at 104 beats per minute. ABDOMEN: Soft, nontender. Positive bowel sounds no organomegaly, normal bowel sounds. EXTREMITIES: Without any cyanosis, clubbing, or edema. Pedal pulses intact, Homans sign is negative. NEUROLOGIC: Normal speech, normal tone. A & O x3, moves all extremities, no obvious focal deficits. PSYCHIATRIC: Normal affect, normal mood. Stable. SKIN: No ulcerations or rashes, good skin turgor, no jaundice. VASCULAR: Good capillary refill, neurovascular bundle appears to be intact. ASSESSMENT AND PLAN: Atrial fibrillation with rapid ventricular response. The patient has been admitted. We will consult Cardiology. We will consider anticoagulation if okay with Cardiology, negative chronotropic agents. Home meds, DVT prophylaxis, full code. ADIS POP DO DR: KASHMIR/sofia JOB#: [id number] / [id number]
[2020-03-28] MEDS ORDERED: ALBUTEROL SULFATE 2.5 MG/3 ML NEBU. CONT NEB ONE (19:30)
[2020-03-28] MEDS ORDERED: WARFARIN 7.5 MG TABLET. PO ONE (20:00)
[2020-03-28 21:15] VITALS: BP 151/107
[2020-03-28 21:45] VITALS: BP 146/96
[2020-03-28 23:00] VITALS: BP 148/80
[2020-03-28] MEDS ORDERED: GLYC10.7 IH (23:46)
[2020-03-28] MEDS ORDERED: CLON0.2T PO (23:46)
[2020-03-28] MEDS ORDERED: CLON0.1T PO (23:46)
[2020-03-28] MEDS ORDERED: EZET10TA48 PO (23:46)
--- NOTE | 2020-03-28 23:50 | NUR ---
Patient arrived to from the ED via wheelchair. No fluids infusing. 2L oxygen via NC. Report received from Debra ESTRELLA. Patient alert and oriented, answers questions appropriately. Denies pain or SOA. Reports tingling to hand but no complaints at this time. VSS. Will continue to monitor.
[2020-03-29 03:00] VITALS: BP 160/98
[2020-03-29 07:12] VITALS: BP 161/58
[2020-03-29 08:14] LABS: BASO % 0 % (0-3); EOS # 0.1 x10^3/uL (0.0-0.7); EOS % 2 % (0-3); HEMATOCRIT 46.6 % (36.0-47.0); LYMPH % 16 % (24-48); MEAN CORPUSCULAR HEMOGLOBIN 34 pg (25-35); MEAN CORPUSCULAR HGB CONC 34 g/dL (31-37); MEAN CORPUSCULAR VOLUME 100 fL (79-100); MONO # 0.5 x10^3/uL (0.0-1.1); MONO % 9 % (0-9); NEUT # 4.5 x10^3/uL (1.8-7.7); NEUT % 73 % (31-73); PLATELET COUNT 248 x10^3/uL (140-400); RED BLOOD COUNT 4.67 x10^6/uL (3.50-5.40); RED CELL DISTRIBUTION WIDTH 13.8 % (11.5-14.5); WHITE BLOOD COUNT 6.1 x10^3/uL (4.0-11.0)
[2020-03-29 08:21] LABS: CREATININE 0.7 mg/dL (0.6-1.0); GFR 85.4; POTASSIUM 3.2 mmol/L (3.5-5.1)
[2020-03-29 08:25] LABS: PROTHROMBIN TIME PATIENT 12.6 SEC (11.7-14.0)
--- NOTE | 2020-03-29 08:46 | NUR ---
Pharmacy Warfarin Dosing Note S: Pharmacy consulted to assist with anticoagulation therapy started 03/28/20 O: HOLLY ANDERSON is a 59 year old F with Atrial Fibrillation LABS: Last INR: 1.0 Last HGB: 16.0 Last HCT: 46.6 Last PLT: 248 Last dose of 7.5 mg given on 03/28/20 at 2025 A:INR of 1.0 is below desired range. Target range for this patient is: 2 -3 P: Warfarin dose: 7.5 mg Today at 1600 Bridge Therapy: None Next INR due 03/30/20 AM Pharmacy anticoagulation service will continue to follow. JENNIFER IBARRA RPH, 03/29/20 [id number]
[2020-03-29] MEDS ORDERED: MAGNESIUM SULFATE 2GM 50 ML IV ONE ×2 (09:45→11:00)
[2020-03-29] MEDS: NICOTINE 21MG PATCH. TD SCH (10:01)
--- NOTE | 2020-03-29 10:27 | PDOC2 ---
CONSULT Date of Consult Date of Consult DATE: 03/29/20 TIME: 10:20 Reason for Consult Reason for Consult: Atrial fibrillation with RVR Referring Physician Referring Physician: Dr. Garcia Identification/Chief Complaint Chief Complaint Perioral numbness Source Source: Chart review, Patient History of Present Illness Reason for Visit: 59-year-old female without any previous cardiac history presented with tingling in her fingers and numbness around her mouth and face. She was found to have severe hypomagnesemia and atrial fibrillation with rapid ventricular spots and admitted for further management. Upon further interrogation, she stated that she has been having palpitations and dyspnea on exertion since the last 2 weeks. She denied any orthopnea/PND, chest pain or syncope. Past Medical History Past Medical History Hypertension Hyperlipidemia Gastroesophageal reflux disease Diverticulitis Carotid artery stenosis s/p CEA Past Surgical History Past Surgical History Carotid endarterectomy Cholecystectomy Tubal ligation Family History Family History Negative for premature coronary disease and positive hypertension Social History Social History Patient smokes 1/2 pack of cigarettes daily, has history of moderate alcohol intake and denied any drug use. Current Problem List Problem List Problems Medical Problems: (1) Atrial fibrillation with RVR Status: Acute Current Medications Current Medications Current Medications Sodium Chloride 1,000 ml @ 1,000 mls/hr 1X ONCE IV Last administered on 03/28/20at 17:21; Start 03/28/20 at 17:30; Stop 03/28/20 at 18:46; Status DC Magnesium Sulfate 50 ml @ 25 mls/hr 1X ONCE IV Last administered on 03/28/20at 19:21; Start 03/28/20 at 18:00; Stop 03/28/20 at 19:59; Status DC Warfarin Sodium (Coumadin Per Pharmacy) 1 each PRN DAILY PRN MC SEE COMMENTS Last administered on 03/29/20at 08:45; Start 03/28/20 at 18:15 Diltiazem HCl (Cardizem Iv Push) 10 mg 1X ONCE IVP Last administered on 03/28/20at 19:20; Start 03/28/20 at 18:15; Stop 03/28/20 at 18:18; Status DC Enoxaparin Sodium (Lovenox 60mg Syringe) 60 mg 1X ONCE SQ Last administered on 03/28/20at 19:20; Start 03/28/20 at 18:15; Stop 8/7/20 at 18:18; Status DC Warfarin Sodium (Coumadin) 7.5 mg 1X WARF ONCE PO Last administered on 03/28/20at 20:26; Start 03/28/20 at 20:00; Stop 03/28/20 at 20:01; Status DC Albuterol Sulfate (Ventolin Neb Soln) 10 mg 1X ONCE CONT NEB ; Start 03/28/20 at 19:30; Stop 03/28/20 at 19:31; Status UNV Warfarin Sodium (Coumadin) 7.5 mg 1X WARF ONCE PO ; Start 03/29/20 at 16:00; Stop 03/29/20 at 16:01 Diltiazem HCl (Cardizem 24hr Cd) 120 mg DAILY PO Last administered on 03/29/20at 10:01; Start 03/29/20 at 09:30 Magnesium Sulfate 50 ml @ 25 mls/hr 1X ONCE IV Last administered on 03/29/20at 10:00; Start 03/29/20 at 09:45; Stop 03/29/20 at 11:44 Nicotine (Nicoderm Cq 21mg) 1 patch DAILY TD Last administered on 03/29/20at 10:01; Start 03/29/20 at 10:00 Active Scripts Active Aspirin Ec (Aspirin) 81 Mg Tablet. 81 Mg PO [id number] 90 Days Reported Clonidine Hcl 0.1 Mg Tablet 0.1 Mg PO DAILY Bevespi Aerosphere Inhaler (Glycopyrrolate/Formoterol Fum) 10.7 Gm Hfa.aer.ad 10.7 Gm IH BID Ezetimibe 10 Mg Tablet 10 Mg PO DAILY Clonidine Hcl 0.2 Mg Tablet 2 Tab PO QEVNG Magnesium (Magnesium Oxide) 400 Mg Capsule 400 Mg PO DAILY Potassium Chloride 10 Meq Tablet.er 10 Meq PO DAILY Omeprazole 40 Mg Capsule. 1 Cap PO DAILY Amlodipine-Benazepril 10-40 Mg (Amlodipine Besylate/Benazepril) 1 Each Capsule 1 Cap PO QHS Atenolol 100 Mg Tablet 1 Tab PO DAILY Allergies Allergies: Coded Allergies: shellfish derived (Verified Allergy, Severe, THROAT SWELLING, 06/15/17) codeine (Verified Adverse Reaction, Intermediate, vomiting, 06/15/17) ROS PSYCHOLOGICAL ROS: No: Hallucinations Eyes: No Loss of vision HEENT: No: Epistaxis Respiratory: YES: Shortness of breath; No: Hemoptysis Cardiovascular: yes Palpitations Gastrointestinal: No Vomiting, No Diarrhea Genitourinary: No Hematuria Neurological: No Seizures Skin: No Rash Physical Exam General: Alert, Oriented X3 HEENT: Atraumatic Lungs: Clear to auscultation Heart: Other (Heart rate is irregular) Abdomen: Soft Extremities: No edema Neuro: Normal speech Psych/Mental Status: Mood NL Vitals VITALS Vital Signs Date Time Temp Pulse Resp B/P (MAP) Pulse Ox O2 Delivery O2 Flow Rate FiO2 03/29/20 10:01 99 161/58 03/29/20 08:07 Room Air 2.0 03/29/20 07:12 98.7 19 92 98.7 Labs Labs Laboratory Tests Test 03/28/20 16:51 03/28/20 17:41 03/29/20 07:50 White Blood Count 6.4 x10^3/uL (4.0-11.0) 6.1 x10^3/uL (4.0-11.0) Red Blood Count 4.28 x10^6/uL (3.50-5.40) 4.67 x10^6/uL (3.50-5.40) Hemoglobin 15.0 g/dL (12.0-15.5) 16.0 g/dL (12.0-15.5) Hematocrit 42.4 % (36.0-47.0) 46.6 % (36.0-47.0) Mean Corpuscular Volume 99 fL (79-100) 100 fL (79-100) Mean Corpuscular Hemoglobin 35 pg (25-35) 34 pg (25-35) Mean Corpuscular Hemoglobin Concent 35 g/dL (31-37) 34 g/dL (31-37) Red Cell Distribution Width 14.0 % (11.5-14.5) 13.8 % (11.5-14.5) Platelet Count 236 x10^3/uL (140-400) 248 x10^3/uL (140-400) Neutrophils (%) (Auto) 66 % (31-73) 73 % (31-73) Lymphocytes (%) (Auto) 24 % (24-48) 16 % (24-48) Monocytes (%) (Auto) 8 % (0-9) 9 % (0-9) Eosinophils (%) (Auto) 2 % (0-3) 2 % (0-3) Basophils (%) (Auto) 1 % (0-3) 0 % (0-3) Neutrophils # (Auto) 4.2 x10^3/uL (1.8-7.7) 4.5 x10^3/uL (1.8-7.7) Lymphocytes # (Auto) 1.5 x10^3/uL (1.0-4.8) 1.0 x10^3/uL (1.0-4.8) Monocytes # (Auto) 0.5 x10^3/uL (0.0-1.1) 0.5 x10^3/uL (0.0-1.1) Eosinophils # (Auto) 0.1 x10^3/uL (0.0-0.7) 0.1 x10^3/uL (0.0-0.7) Basophils # (Auto) 0.0 x10^3/uL (0.0-0.2) 0.0 x10^3/uL (0.0-0.2) Platelet Estimate Adequate (ADEQUATE) Prothrombin Time 12.2 SEC (11.7-14.0) 12.6 SEC (11.7-14.0) Prothromb Time International Ratio 0.9 (0.8-1.1) 1.0 (0.8-1.1) Sodium Level 141 mmol/L (136-145) 142 mmol/L (136-145) Potassium Level 4.0 mmol/L (3.5-5.1) 3.2 mmol/L (3.5-5.1) Chloride Level 100 mmol/L (98-107) 100 mmol/L (98-107) Carbon Dioxide Level 29 mmol/L (21-32) 31 mmol/L (21-32) Anion Gap 12 (6-14) 11 (6-14) Blood Urea Nitrogen 12 mg/dL (7-20) 6 mg/dL (7-20) Creatinine 0.6 mg/dL (0.6-1.0) 0.7 mg/dL (0.6-1.0) Estimated GFR (Cockcroft-Gault) 102.0 85.4 Glucose Level 109 mg/dL (70-99) 147 mg/dL (70-99) Calcium Level 8.3 mg/dL (8.5-10.1) 8.0 mg/dL (8.5-10.1) Magnesium Level 0.9 mg/dL (1.8-2.4) 1.3 mg/dL (1.8-2.4) Total Bilirubin 0.7 mg/dL (0.2-1.0) Direct Bilirubin 0.1 mg/dL (0.0-0.2) Aspartate Amino Transf (AST/SGOT) 30 U/L (15-37) Alanine Aminotransferase (ALT/SGPT) 42 U/L (14-59) Alkaline Phosphatase 98 U/L (46-116) Troponin I Quantitative < 0.017 ng/mL (0.000-0.055) Total Protein 7.8 g/dL (6.4-8.2) Albumin 4.5 g/dL (3.4-5.0) Lipase 125 U/L (73-393) Urine Collection Type Unknown Urine Color Yellow Urine Clarity Clear Urine pH 6.5 (<5.0-8.0) Urine Specific [place] <=1.005 (1.000-1.030) Urine Protein Negative mg/dL (NEG-TRACE) Urine Glucose (UA) Negative mg/dL (NEG) Urine Ketones (Stick) Negative mg/dL (NEG) Urine Blood Negative (NEG) Urine Nitrite Negative (NEG) Urine Bilirubin Negative (NEG) Urine Urobilinogen Dipstick 0.2 mg/dL (0.2 mg/dL) Urine Leukocyte Esterase Negative (NEG) Urine RBC Occ /HPF (0-2) Urine WBC Occ /HPF (0-4) Urine Squamous Epithelial Cells Few /LPF Urine Bacteria Few /HPF (0-FEW) Thyroid Stimulating Hormone (TSH) 0.843 uIU/mL (0.358-3.74) Laboratory Tests Test 03/28/20 16:51 03/28/20 17:41 03/29/20 07:50 White Blood Count 6.4 x10^3/uL (4.0-11.0) 6.1 x10^3/uL (4.0-11.0) Red Blood Count 4.28 x10^6/uL (3.50-5.40) 4.67 x10^6/uL (3.50-5.40) Hemoglobin 15.0 g/dL (12.0-15.5) 16.0 g/dL (12.0-15.5) Hematocrit 42.4 % (36.0-47.0) 46.6 % (36.0-47.0) Mean Corpuscular Volume 99 fL (79-100) 100 fL (79-100) Mean Corpuscular Hemoglobin 35 pg (25-35) 34 pg (25-35) Mean Corpuscular Hemoglobin Concent 35 g/dL (31-37) 34 g/dL (31-37) Red Cell Distribution Width 14.0 % (11.5-14.5) 13.8 % (11.5-14.5) Platelet Count 236 x10^3/uL (140-400) 248 x10^3/uL (140-400) Neutrophils (%) (Auto) 66 % (31-73) 73 % (31-73) Lymphocytes (%) (Auto) 24 % (24-48) 16 % (24-48) Monocytes (%) (Auto) 8 % (0-9) 9 % (0-9) Eosinophils (%) (Auto) 2 % (0-3) 2 % (0-3) Basophils (%) (Auto) 1 % (0-3) 0 % (0-3) Neutrophils # (Auto) 4.2 x10^3/uL (1.8-7.7) 4.5 x10^3/uL (1.8-7.7) Lymphocytes # (Auto) 1.5 x10^3/uL (1.0-4.8) 1.0 x10^3/uL (1.0-4.8) Monocytes # (Auto) 0.5 x10^3/uL (0.0-1.1) 0.5 x10^3/uL (0.0-1.1) Eosinophils # (Auto) 0.1 x10^3/uL (0.0-0.7) 0.1 x10^3/uL (0.0-0.7) Basophils # (Auto) 0.0 x10^3/uL (0.0-0.2) 0.0 x10^3/uL (0.0-0.2) Platelet Estimate Adequate (ADEQUATE) Prothrombin Time 12.2 SEC (11.7-14.0) 12.6 SEC (11.7-14.0) Prothromb Time International Ratio 0.9 (0.8-1.1) 1.0 (0.8-1.1) Sodium Level 141 mmol/L (136-145) 142 mmol/L (136-145) Potassium Level 4.0 mmol/L (3.5-5.1) 3.2 mmol/L (3.5-5.1) Chloride Level 100 mmol/L (98-107) 100 mmol/L (98-107) Carbon Dioxide Level 29 mmol/L (21-32) 31 mmol/L (21-32) Anion Gap 12 (6-14) 11 (6-14) Blood Urea Nitrogen 12 mg/dL (7-20) 6 mg/dL (7-20) Creatinine 0.6 mg/dL (0.6-1.0) 0.7 mg/dL (0.6-1.0) Estimated GFR (Cockcroft-Gault) 102.0 85.4 Glucose Level 109 mg/dL (70-99) 147 mg/dL (70-99) Calcium Level 8.3 mg/dL (8.5-10.1) 8.0 mg/dL (8.5-10.1) Magnesium Level 0.9 mg/dL (1.8-2.4) 1.3 mg/dL (1.8-2.4) Total Bilirubin 0.7 mg/dL (0.2-1.0) Direct Bilirubin 0.1 mg/dL (0.0-0.2) Aspartate Amino Transf (AST/SGOT) 30 U/L (15-37) Alanine Aminotransferase (ALT/SGPT) 42 U/L (14-59) Alkaline Phosphatase 98 U/L (46-116) Troponin I Quantitative < 0.017 ng/mL (0.000-0.055) Total Protein 7.8 g/dL (6.4-8.2) Albumin 4.5 g/dL (3.4-5.0) Lipase 125 U/L (73-393) Urine Collection Type Unknown Urine Color Yellow Urine Clarity Clear Urine pH 6.5 (<5.0-8.0) Urine Specific [place] <=1.005 (1.000-1.030) Urine Protein Negative mg/dL (NEG-TRACE) Urine Glucose (UA) Negative mg/dL (NEG) Urine Ketones (Stick) Negative mg/dL (NEG) Urine Blood Negative (NEG) Urine Nitrite Negative (NEG) Urine Bilirubin Negative (NEG) Urine Urobilinogen Dipstick 0.2 mg/dL (0.2 mg/dL) Urine Leukocyte Esterase Negative (NEG) Urine RBC Occ /HPF (0-2) Urine WBC Occ /HPF (0-4) Urine Squamous Epithelial Cells Few /LPF Urine Bacteria Few /HPF (0-FEW) Thyroid Stimulating Hormone (TSH) 0.843 uIU/mL (0.358-3.74) Assessment/Plan Assessment/Plan 1. Atrial fibrillation with RVR, new onset. Patient received Cardizem bolus in ED but did not get started on drip. Her heart rate is in the low 100s. Start Cardizem CD 120 mg orally daily for rate control. We will start Eliquis for stroke prophylaxis and plan outpatient cardioversion in 3 to 4 weeks. We will also check 2D echo and MPI as outpatient. 2. Hypomagnesemia: Initial magnesium level was 0.9. This is up to 1.3 with intravenous magnesium. We will give another 2 g of magnesium sulfate intravenously and try to keep magnesium level above 2.0. 3. Hypokalemia: Replace orally 4. Hypertension: Blood pressure elevated. Start oral Cardizem as stated above. 5. Hyperlipidemia: On Zetia as outpatient Possible DC home tomorrow. Thank you for your consultation YOBANY ANDREW MD Mar 29, 2020 10:26
[2020-03-29] MEDS ORDERED: POTASSIUM CHLORIDE 20 MEQ TABLET.ER. PO ONE (10:30)
[2020-03-29] MEDS ORDERED: ANTI-COAG MONITOR BY PHARMACY. MC PRN (10:45)
[2020-03-29 11:05] VITALS: BP 135/101
--- NOTE | 2020-03-29 11:05 | PDOC ---
[facility] PROGRESS NOTE Date of Service DOS: DATE: 03/29/20 TIME: 11:00 Chief Complaint Chief Complaint A/P: A. fib with RVR -on oral Cardizem and oral Eliquis today per cardiology., K greater than 4 and mag greater than 2 would be ideal prior to discharge Hypomagnesemia -for mag 1.3 will likely need additional 4 g replacement. Hypokalemia - will replace 40 mEq oral Smoker 1.5 PPD -counseled on cessation, nicotine patch given HTN -Cardizem HLD -statin GERD -with profound hypomagnesemia may be better on an H2 migel rather than a PPI Diverticulosis -counseled on fiber intake Carotid stenosis s/p CEA -needs statin and ASA lifelong. History of Present Illness History of Present Illness Ms Tracy is a 59-year-old female w/ PMHx Smoker 1.5 PPD, HTN, HLD, GERD, diverticulosis, and carotid stenosis s/p CEA presented with tingling in her fingers and numbness around her mouth and face. She was found with hypomagnesemia 0.8 and atrial fibrillation with rapid ventricular response. Admitted on lovenox and cardizem GTT. This morning Mg 1.3 and K 3.2, TSH WNL. Vitals/I&O Vitals/I&O: Vital Signs Date Time Temp Pulse Resp B/P (MAP) Pulse Ox O2 Delivery O2 Flow Rate FiO2 03/29/20 10:01 99 161/58 03/29/20 08:07 Room Air 2.0 03/29/20 07:12 98.7 19 92 98.7 I & O 03/28/20 03/28/20 03/29/20 15:00 23:00 07:00 Intake Total 1050 ml 320 ml Output Total 0 ml Balance 1050 ml 320 ml Physical Exam General: Alert, Oriented X3 Heart: Other (Heart rate is irregular) Abdomen: Soft Extremities: No edema Labs Labs: Laboratory Tests Test 03/28/20 16:51 03/28/20 17:41 03/29/20 07:50 White Blood Count 6.4 x10^3/uL (4.0-11.0) 6.1 x10^3/uL (4.0-11.0) Red Blood Count 4.28 x10^6/uL (3.50-5.40) 4.67 x10^6/uL (3.50-5.40) Hemoglobin 15.0 g/dL (12.0-15.5) 16.0 g/dL (12.0-15.5) Hematocrit 42.4 % (36.0-47.0) 46.6 % (36.0-47.0) Mean Corpuscular Volume 99 fL (79-100) 100 fL (79-100) Mean Corpuscular Hemoglobin 35 pg (25-35) 34 pg (25-35) Mean Corpuscular Hemoglobin Concent 35 g/dL (31-37) 34 g/dL (31-37) Red Cell Distribution Width 14.0 % (11.5-14.5) 13.8 % (11.5-14.5) Platelet Count 236 x10^3/uL (140-400) 248 x10^3/uL (140-400) Neutrophils (%) (Auto) 66 % (31-73) 73 % (31-73) Lymphocytes (%) (Auto) 24 % (24-48) 16 % (24-48) Monocytes (%) (Auto) 8 % (0-9) 9 % (0-9) Eosinophils (%) (Auto) 2 % (0-3) 2 % (0-3) Basophils (%) (Auto) 1 % (0-3) 0 % (0-3) Neutrophils # (Auto) 4.2 x10^3/uL (1.8-7.7) 4.5 x10^3/uL (1.8-7.7) Lymphocytes # (Auto) 1.5 x10^3/uL (1.0-4.8) 1.0 x10^3/uL (1.0-4.8) Monocytes # (Auto) 0.5 x10^3/uL (0.0-1.1) 0.5 x10^3/uL (0.0-1.1) Eosinophils # (Auto) 0.1 x10^3/uL (0.0-0.7) 0.1 x10^3/uL (0.0-0.7) Basophils # (Auto) 0.0 x10^3/uL (0.0-0.2) 0.0 x10^3/uL (0.0-0.2) Platelet Estimate Adequate (ADEQUATE) Prothrombin Time 12.2 SEC (11.7-14.0) 12.6 SEC (11.7-14.0) Prothromb Time International Ratio 0.9 (0.8-1.1) 1.0 (0.8-1.1) Sodium Level 141 mmol/L (136-145) 142 mmol/L (136-145) Potassium Level 4.0 mmol/L (3.5-5.1) 3.2 mmol/L (3.5-5.1) Chloride Level 100 mmol/L (98-107) 100 mmol/L (98-107) Carbon Dioxide Level 29 mmol/L (21-32) 31 mmol/L (21-32) Anion Gap 12 (6-14) 11 (6-14) Blood Urea Nitrogen 12 mg/dL (7-20) 6 mg/dL (7-20) Creatinine 0.6 mg/dL (0.6-1.0) 0.7 mg/dL (0.6-1.0) Estimated GFR (Cockcroft-Gault) 102.0 85.4 Glucose Level 109 mg/dL (70-99) 147 mg/dL (70-99) Calcium Level 8.3 mg/dL (8.5-10.1) 8.0 mg/dL (8.5-10.1) Magnesium Level 0.9 mg/dL (1.8-2.4) 1.3 mg/dL (1.8-2.4) Total Bilirubin 0.7 mg/dL (0.2-1.0) Direct Bilirubin 0.1 mg/dL (0.0-0.2) Aspartate Amino Transf (AST/SGOT) 30 U/L (15-37) Alanine Aminotransferase (ALT/SGPT) 42 U/L (14-59) Alkaline Phosphatase 98 U/L (46-116) Troponin I Quantitative < 0.017 ng/mL (0.000-0.055) Total Protein 7.8 g/dL (6.4-8.2) Albumin 4.5 g/dL (3.4-5.0) Lipase 125 U/L (73-393) Urine Collection Type Unknown Urine Color Yellow Urine Clarity Clear Urine pH 6.5 (<5.0-8.0) Urine Specific [place] <=1.005 (1.000-1.030) Urine Protein Negative mg/dL (NEG-TRACE) Urine Glucose (UA) Negative mg/dL (NEG) Urine Ketones (Stick) Negative mg/dL (NEG) Urine Blood Negative (NEG) Urine Nitrite Negative (NEG) Urine Bilirubin Negative (NEG) Urine Urobilinogen Dipstick 0.2 mg/dL (0.2 mg/dL) Urine Leukocyte Esterase Negative (NEG) Urine RBC Occ /HPF (0-2) Urine WBC Occ /HPF (0-4) Urine Squamous Epithelial Cells Few /LPF Urine Bacteria Few /HPF (0-FEW) Thyroid Stimulating Hormone (TSH) 0.843 uIU/mL (0.358-3.74) Assessment and Plan Assessmemt and Plan Problems Medical Problems: (1) Atrial fibrillation with RVR Status: Acute Comment Review of Relevant I have reviewed the following items luis (where applicable) has been applied. Medications: Current Medications Medications (Trade) Dose Ordered Sig/Maryanne Route PRN Reason Start Time Stop Time Status Last Admin Dose Admin Sodium Chloride 1,000 ml @ 1,000 mls/hr 1X ONCE IV 03/28/20 17:30 03/28/20 18:46 DC 03/28/20 17:21 Magnesium Sulfate 50 ml @ 25 mls/hr 1X ONCE IV 03/28/20 18:00 03/28/20 19:59 DC 03/28/20 19:21 Warfarin Sodium (Coumadin Per Pharmacy) 1 each PRN DAILY PRN MC SEE COMMENTS 03/28/20 18:15 03/29/20 10:30 DC 03/29/20 08:45 Diltiazem HCl (Cardizem Iv Push) 10 mg 1X ONCE IVP 03/28/20 18:15 03/28/20 18:18 DC 03/28/20 19:20 Enoxaparin Sodium (Lovenox 60mg Syringe) 60 mg 1X ONCE SQ 03/28/20 18:15 03/28/20 18:18 DC 03/28/20 19:20 Warfarin Sodium (Coumadin) 7.5 mg 1X WARF ONCE PO 03/28/20 20:00 03/29/20 10:30 DC 03/28/20 20:26 Diltiazem HCl (Cardizem 24hr Cd) 120 mg DAILY PO 03/29/20 09:30 03/29/20 10:01 Magnesium Sulfate 50 ml @ 25 mls/hr 1X ONCE IV 03/29/20 09:45 03/29/20 11:44 03/29/20 10:00 Nicotine (Nicoderm Cq 21mg) 1 patch DAILY TD 03/29/20 10:00 03/29/20 10:01 Justicifation of Admission Dx: Justifications for Admission: Justification of Admission Dx: Yes BAILEY LEMUS MD Mar 29, 2020 11:05
[2020-03-29] MEDS: APIXABAN 5 MG TABLET. PO SCH ×2 (11:14→20:48)
[2020-03-29] MEDS ORDERED: FAMOTIDINE 20 MG TABLET. PO SCH (11:30)
[2020-03-29 15:15] VITALS: BP 133/85
[2020-03-29] MEDS ORDERED: WARFARIN 7.5 MG TABLET. PO ONE (16:00)
[2020-03-29] MEDS ORDERED: DIGOXIN IV 500 MCG/2 ML AMPUL. IV ONE (18:15)
[2020-03-29 19:00] VITALS: BP 184/106
[2020-03-29] MEDS ORDERED: amLODIPine BESYLATE 10 MG TABLET PO SCH (21:00)
[2020-03-29] MEDS: IPRATRPIUM/ALBUTEROL 0.5/2.5MG 3 ML NEBU. NEB SCH (22:00)
[2020-03-29 22:35] VITALS: BP 157/82
[2020-03-30 03:00] VITALS: BP 160/84
[2020-03-30 05:04] LABS: CALCIUM 8.6 mg/dL (8.5-10.1); CREATININE 0.7 mg/dL (0.6-1.0); GFR 85.4; MAGNESIUM 2.4 mg/dL (1.8-2.4); POTASSIUM 3.6 mmol/L (3.5-5.1)
[2020-03-30 07:10] VITALS: BP 174/97
[2020-03-30] MEDS ORDERED: POTASSIUM CHLORIDE 20 MEQ TABLET.ER. PO ONE (07:45)
--- NOTE | 2020-03-30 07:46 | PDOC ---
[facility] [facility] PROGRESS NOTE Date of Service DOS: DATE: 03/30/20 TIME: 07:45 Chief Complaint Chief Complaint A/P: A. fib with RVR -on oral Cardizem and oral Eliquis today per cardiology., K greater than 4 and mag greater than 2 would be ideal prior to discharge Hypomagnesemia -for mag 1.3 will likely need additional 4 g replacement. Hypokalemia - will replace 40 mEq oral Smoker 1.5 PPD -counseled on cessation, nicotine patch given HTN -Cardizem HLD -statin GERD -with profound hypomagnesemia may be better on an H2 migel rather than a PPI Diverticulosis -counseled on fiber intake Carotid stenosis s/p CEA -needs statin and ASA lifelong. History of Present Illness History of Present Illness Ms Tracy is a 59-year-old female w/ PMHx Smoker 1.5 PPD, HTN, HLD, GERD, diverticulosis, and carotid stenosis s/p CEA presented with tingling in her fingers and numbness around her mouth and face. She was found with hypomagnesemia 0.8 and atrial fibrillation with rapid ventricular response. Admitted on lovenox and cardizem GTT. 03/29: Mg 1.3 and K 3.2, TSH WNL. Rapid afib treated with diltiazem and 1x digoxin Afebrile, mag 2.4, K3.6. Tachycardic in the 130s today. Improved with IV metoprolol. She is very short of breath and feels palpitations even with movement of 5 feet in the room. Vitals/I&O Vitals/I&O: Vital Signs Date Time Temp Pulse Resp B/P (MAP) Pulse Ox O2 Delivery O2 Flow Rate FiO2 03/30/20 07:10 98.7 132 19 174/97 (122) 94 Room Air 2.0 98.7 I & O 0 03/29/20 03/29/20 03/30/20 15:00 23:00 07:00 Intake Total 800 ml 800 ml Balance 800 ml 800 ml Physical Exam General: Alert, Oriented X3 Heart: Other (Heart rate is irregular) Abdomen: Soft Extremities: No edema Labs Labs: Laboratory Tests Test 03/29/20 07:50 03/30/20 04:10 White Blood Count 6.1 x10^3/uL (4.0-11.0) Red Blood Count 4.67 x10^6/uL (3.50-5.40) Hemoglobin 16.0 g/dL (12.0-15.5) Hematocrit 46.6 % (36.0-47.0) Mean Corpuscular Volume 100 fL (79-100) Mean Corpuscular Hemoglobin 34 pg (25-35) Mean Corpuscular Hemoglobin Concent 34 g/dL (31-37) Red Cell Distribution Width 13.8 % (11.5-14.5) Platelet Count 248 x10^3/uL (140-400) Neutrophils (%) (Auto) 73 % (31-73) Lymphocytes (%) (Auto) 16 % (24-48) Monocytes (%) (Auto) 9 % (0-9) Eosinophils (%) (Auto) 2 % (0-3) Basophils (%) (Auto) 0 % (0-3) Neutrophils # (Auto) 4.5 x10^3/uL (1.8-7.7) Lymphocytes # (Auto) 1.0 x10^3/uL (1.0-4.8) Monocytes # (Auto) 0.5 x10^3/uL (0.0-1.1) Eosinophils # (Auto) 0.1 x10^3/uL (0.0-0.7) Basophils # (Auto) 0.0 x10^3/uL (0.0-0.2) Prothrombin Time 12.6 SEC (11.7-14.0) Prothromb Time International Ratio 1.0 (0.8-1.1) Sodium Level 142 mmol/L (136-145) 140 mmol/L (136-145) Potassium Level 3.2 mmol/L (3.5-5.1) 3.6 mmol/L (3.5-5.1) Chloride Level 100 mmol/L (98-107) 101 mmol/L (98-107) Carbon Dioxide Level 31 mmol/L (21-32) 30 mmol/L (21-32) Anion Gap 11 (6-14) 9 (6-14) Blood Urea Nitrogen 6 mg/dL (7-20) 8 mg/dL (7-20) Creatinine 0.7 mg/dL (0.6-1.0) 0.7 mg/dL (0.6-1.0) Estimated GFR (Cockcroft-Gault) 85.4 85.4 Glucose Level 147 mg/dL (70-99) 131 mg/dL (70-99) Calcium Level 8.0 mg/dL (8.5-10.1) 8.6 mg/dL (8.5-10.1) Magnesium Level 1.3 mg/dL (1.8-2.4) 2.4 mg/dL (1.8-2.4) Thyroid Stimulating Hormone (TSH) 0.843 uIU/mL (0.358-3.74) Assessment and Plan Assessmemt and Plan Problems Medical Problems: (1) Atrial fibrillation with RVR Status: Acute Comment Review of Relevant I have reviewed the following items luis (where applicable) has been applied. Medications: Current Medications Medications (Trade) Dose Ordered Sig/Maryanne Route PRN Reason Start Time Stop Time Status Last Admin Dose Admin Diltiazem HCl (Cardizem 24hr Cd) 120 mg DAILY PO 03/29/20 09:30 03/29/20 10:01 Magnesium Sulfate 50 ml @ 25 mls/hr 1X ONCE IV 03/29/20 09:45 03/29/20 11:44 DC 03/29/20 10:00 Nicotine (Nicoderm Cq 21mg) 1 patch DAILY TD 03/29/20 10:00 03/29/20 10:01 Apixaban (Eliquis) 5 mg BID PO 03/29/20 11:00 03/29/20 20:48 Potassium Chloride (Klor-Con) 40 meq 1X ONCE PO 03/29/20 10:30 03/29/20 10:31 DC 03/29/20 11:14 Magnesium Sulfate 50 ml @ 25 mls/hr 1X ONCE IV 03/29/20 11:00 03/29/20 12:59 DC 03/29/20 11:47 Famotidine (Pepcid) 20 mg BID PO 03/29/20 11:30 03/29/20 20:31 DC 03/29/20 11:47 Digoxin (Lanoxin) 250 mcg 1X ONCE IV 03/29/20 18:15 03/29/20 18:16 DC 03/29/20 18:22 Amlodipine Besylate (Norvasc) 10 mg QHS PO 03/29/20 21:00 03/30/20 07:44 DC 03/29/20 20:48 Albuterol/ Ipratropium (Duoneb) 3 ml RTQID NEB 03/29/20 22:00 03/29/20 22:00 Justicifation of Admission Dx: Justifications for Admission: Justification of Admission Dx: Yes BAILEY LEMUS MD Mar 30, 2020 07:46
[2020-03-30] MEDS ORDERED: IPRATRPIUM/ALBUTEROL 0.5/2.5MG 3 ML NEBU. NEB SCH (08:00)
[2020-03-30] MEDS: METOPROLOL TARTRATE 5 MG/5 ML VIAL. IVP PRN ×2 (08:10→14:24)
[2020-03-30] MEDS: MAGNESIUM OXIDE 400 MG TABLET PO SCH (08:11)
[2020-03-30] MEDS: ASPIRIN ENTERIC COATED 81 MG TABLET.DR. PO SCH (08:11)
[2020-03-30] MEDS: NICOTINE 21MG PATCH. TD SCH (08:11)
[2020-03-30] MEDS: PANTOPRAZOLE 40 MG TABLET.DR. PO SCH (08:11)
[2020-03-30] MEDS: EZETIMIBE 10 MG TABLET. PO SCH (08:11)
[2020-03-30] MEDS: APIXABAN 5 MG TABLET. PO SCH ×2 (08:11→20:59)
[2020-03-30] MEDS: POTASSIUM CHLORIDE 10 MEQ TABLET.ER. PO SCH (08:12)
[2020-03-30] MEDS: LISINOPRIL 20 MG TABLET PO SCH (08:23)
[2020-03-30] MEDS: IPRATRPIUM/ALBUTEROL 0.5/2.5MG 3 ML NEBU. NEB SCH ×4 (08:34→20:13)
[2020-03-30] MEDS ORDERED: DEXTROSE 50% 25 GM / 50ML DISP.SYRIN. IV PRN (10:15)
[2020-03-30 11:06] VITALS: BP 161/87
[2020-03-30] MEDS: INSULIN LISPRO 300 UNITS/3 ML VIAL. SQ SCH ×3 (11:30→20:59)
[2020-03-30] MEDS: BUDESONIDE 0.5 MG/2 ML NEBU. NEB SCH ×2 (12:48→20:12)
--- NOTE | 2020-03-30 13:38 | PDOC ---
PROGRESS NOTES Date of Service: DATE: 03/30/20 TIME: 13:38 Subjective Subjective c/o palpitations with exertion, denied any chest pain Objective Objective Vital Signs Date Time Temp Pulse Resp B/P (MAP) Pulse Ox O2 Delivery O2 Flow Rate FiO2 03/30/20 13:05 98 161/87 03/30/20 12:49 93 Room Air 03/30/20 11:06 98.8 2.0 98.8 03/30/20 07:10 19 Intake and Output 03/30/20 07:00 Intake Total 1600 ml Balance 1600 ml Intake Oral 1600 ml # Voids 5 Physical Exam Abdomen: Soft Heart: Other (Heart rate is irregular) Extremities: No edema General: Alert, Oriented X3 HEENT: Atraumatic Lungs: Clear to auscultation Neuro: Normal speech Psych/Mental Status: Mood NL Assessment Assessment 1. Atrial fibrillation with RVR, new onset. Heart rate better controlled but patient had RVR earlier today with exertion. Increase Cardizem dose to 240 mg daily. Continue Eliquis and plan outpatient cardioversion in 3 to 4 weeks. We will check 2D echo and MPI as outpatient. 2. Hypomagnesemia: Initial magnesium level was 0.9. Replaced. Magnesium level 2.4 today. 3. Hypokalemia: Replaced orally 4. Hypertension: Blood pressure elevated. Increase Cardizem dose as stated above. 5. Hyperlipidemia: On Zetia as outpatient Plan Plan of Care Problems Medical Problems: (1) Atrial fibrillation with RVR Status: Acute Comment Review of Relevant I have reviewed the following items luis (where applicable) has been applied. Labs Laboratory Tests Test 03/30/20 04:10 03/30/20 11:45 Sodium Level 140 mmol/L (136-145) Potassium Level 3.6 mmol/L (3.5-5.1) Chloride Level 101 mmol/L (98-107) Carbon Dioxide Level 30 mmol/L (21-32) Anion Gap 9 (6-14) Blood Urea Nitrogen 8 mg/dL (7-20) Creatinine 0.7 mg/dL (0.6-1.0) Estimated GFR (Cockcroft-Gault) 85.4 Glucose Level 131 mg/dL (70-99) Calcium Level 8.6 mg/dL (8.5-10.1) Magnesium Level 2.4 mg/dL (1.8-2.4) Glucose (Fingerstick) 154 mg/dL (70-99) Medications Current Medications Albuterol/ Ipratropium (Duoneb) 3 ml RTQID NEB Last administered on 03/30/20at 12:49; Start 03/29/20 at 22:00 Albuterol/ Ipratropium (Duoneb) 3 ml RTQID NEB ; Start 03/30/20 at 08:00; Stop 03/29/20 at 21:35; Status DC Amlodipine Besylate (Norvasc) 10 mg QHS PO Last administered on 03/29/20at 20:48; Start 03/29/20 at 21:00; Stop 03/30/20 at 07:44; Status DC Aspirin (Ecotrin) 81 mg DAILYWBKFT PO Last administered on 03/30/20at 08:11; Start 03/30/20 at 08:00 Budesonide (Pulmicort) 0.5 mg RTBID NEB Last administered on 03/30/20at 12:48; Start 03/30/20 at 10:30 Dextrose (Dextrose 50%-Water Syringe) 12.5 gm PRN Q15MIN PRN IV SEE COMMENTS; Start 03/30/20 at 10:15 Digoxin (Lanoxin) 250 mcg 1X ONCE IV Last administered on 03/29/20at 18:22; Start 03/29/20 at 18:15; Stop 03/29/20 at 18:16; Status DC Diltiazem HCl (Cardizem 24hr Cd) 120 mg 1X ONCE PO Last administered on 03/30/20at 13:05; Start 03/30/20 at 12:15; Stop 03/30/20 at 12:40; Status DC Diltiazem HCl (Cardizem 24hr Cd) 240 mg DAILY PO ; Start 03/31/20 at 09:00 EZETIMIBE (Zetia) 10 mg DAILY PO Last administered on 03/30/20at 08:11; Start 03/30/20 at 09:00 Insulin Human Lispro (HumaLOG) 0-7 UNITS TIDACHC SQ ; Start 03/30/20 at 11:30 Lisinopril (Prinivil) 40 mg DAILY PO Last administered on 03/30/20at 08:23; Start 03/30/20 at 09:00 Magnesium Oxide (Magnesium Oxide) 400 mg DAILY PO Last administered on 03/30/20at 08:11; Start 03/30/20 at 09:00 Metoprolol Tartrate (Lopressor Vial) 5 mg PRN Q6HRS PRN IVP HYPERTENSION Last administered on 03/30/20at 08:10; Start 03/30/20 at 07:45 Pantoprazole Sodium (Protonix) 40 mg DAILYAC PO Last administered on 03/30/20at 08:11; Start 03/30/20 at 07:30 Potassium Chloride (Klor-Con) 10 meq DAILYWBKFT PO Last administered on 03/30/20at 08:12; Start 03/30/20 at 08:00 Potassium Chloride (Klor-Con) 20 meq 1X ONCE PO Last administered on 03/30/20at 08:12; Start 03/30/20 at 07:45; Stop 03/30/20 at 07:54; Status DC Warfarin Sodium (Coumadin) 7.5 mg 1X WARF ONCE PO ; Start 03/29/20 at 16:00; Stop 03/29/20 at 10:30; Status DC Vitals/I & O Vital Sign - Last 24 Hours 03/29/20 03/29/20 03/29/20 03/29/20 15:15 18:22 19:00 20:00 Temp 98.7 98.1 98.7 98.1 Pulse 129 129 101 Resp 19 22 B/P (MAP) 133/85 (101) 133/85 184/106 (132) Pulse Ox 97 93 O2 Delivery Nasal Cannula Room Air Room Air O2 Flow Rate 2.0 03/29/20 03/29/20 03/29/20 03/30/20 20:48 22:03 22:35 03:00 Temp 98.0 98.5 98.0 98.5 Pulse 101 98 102 Resp 20 24 B/P (MAP) 184/106 157/82 (107) 160/84 (109) Pulse Ox 100 92 96 O2 Delivery Room Air Room Air Nasal Cannula 03/30/20 03/30/20 03/30/20 03/30/20 07:10 08:06 08:10 08:12 Temp 98.7 98.7 Pulse 132 132 132 Resp 19 B/P (MAP) 174/97 (122) 174/97 174/97 Pulse Ox 94 O2 Delivery Room Air Room Air O2 Flow Rate 2.0 2.0 03/30/20 03/30/20 03/30/20 03/30/20 08:23 08:34 11:06 12:49 Temp 98.8 98.8 Pulse 132 98 B/P (MAP) 174/97 161/87 (111) Pulse Ox 100 100 93 O2 Delivery Room Air Room Air Room Air O2 Flow Rate 2.0 03/30/20 13:05 Pulse 98 B/P (MAP) 161/87 Intake and Output 0 03/29/20 03/29/20 03/30/20 15:00 23:00 07:00 Intake Total 800 ml 800 ml Balance 800 ml 800 ml YOBANY ANDREW MD Mar 30, 2020 13:38
[2020-03-30 15:31] VITALS: BP 143/87
[2020-03-30 19:00] VITALS: BP 133/92
[2020-03-30 22:26] VITALS: BP 161/78
[2020-03-31 03:08] LABS: HEMOGLOBIN A1C 5.7 % (4.8-5.6)
[2020-03-31 03:15] VITALS: BP 154/88
[2020-03-31] MEDS ORDERED: ACETAMINOPHEN 325 MG TABLET. PO PRN (04:30)
[2020-03-31 07:00] VITALS: BP 142/84
[2020-03-31] MEDS: IPRATRPIUM/ALBUTEROL 0.5/2.5MG 3 ML NEBU. NEB SCH ×4 (07:18→19:51)
[2020-03-31] MEDS: BUDESONIDE 0.5 MG/2 ML NEBU. NEB SCH ×2 (07:18→19:51)
[2020-03-31] MEDS: INSULIN LISPRO 300 UNITS/3 ML VIAL. SQ SCH ×4 (07:30→20:59)
[2020-03-31] MEDS: APIXABAN 5 MG TABLET. PO SCH ×2 (08:34→20:59)
[2020-03-31] MEDS: PANTOPRAZOLE 40 MG TABLET.DR. PO SCH (08:34)
[2020-03-31] MEDS: ASPIRIN ENTERIC COATED 81 MG TABLET.DR. PO SCH (08:35)
[2020-03-31] MEDS: MAGNESIUM OXIDE 400 MG TABLET PO SCH (08:35)
[2020-03-31] MEDS: LISINOPRIL 20 MG TABLET PO SCH (08:35)
[2020-03-31] MEDS: EZETIMIBE 10 MG TABLET. PO SCH (08:35)
[2020-03-31] MEDS: POTASSIUM CHLORIDE 10 MEQ TABLET.ER. PO SCH (08:36)
[2020-03-31] MEDS: NICOTINE 21MG PATCH. TD SCH (08:39)
[2020-03-31] MEDS: METOPROLOL TARTRATE 5 MG/5 ML VIAL. IVP PRN ×2 (08:41→17:00)
[2020-03-31 10:54] VITALS: BP 142/92
--- NOTE | 2020-03-31 12:27 | PDOC ---
[facility] PROGRESS NOTE Date of Service DOS: DATE: 03/31/20 TIME: 12:11 Chief Complaint Chief Complaint A. fib with RVR Hypomagnesium Hypokalemia Smoker - 1.5 PPD Hypertension Hyperlipidemia GERD Diverticulosis Carotid stenosis s/p CEA History of Present Illness History of Present Illness 03/31/2020 Patient seen and examined Patient resting comfortably, afebrile, on RA Tachycardic in the 160s today. Improved with IV metoprolol. Magnesium has improved to 2.4 Potassium has improved to 3.6 Discussed with RN Chart reviewed Vitals/I&O Vitals/I&O: Vital Signs Date Time Temp Pulse Resp B/P (MAP) Pulse Ox O2 Delivery O2 Flow Rate FiO2 03/31/20 11:38 94 Room Air 03/31/20 10:54 97.7 105 18 142/92 (109) 97.7 03/30/20 15:31 2.0 I & O 03/30/20 03/30/20 03/31/20 15:00 23:00 07:00 Intake Total 100 ml Output Total 0 ml Balance 0 ml 100 ml Physical Exam General: Alert, Oriented X3, Cooperative Heart: Other (Heart rate is irregular) Abdomen: Soft, No tenderness Extremities: No clubbing, No cyanosis, No edema Skin: No rashes, No breakdown, No significant lesion Labs Labs: Laboratory Tests Test 03/30/20 16:47 03/30/20 20:59 03/31/20 08:00 03/31/20 11:52 Glucose (Fingerstick) 134 mg/dL (70-99) 138 mg/dL (70-99) 137 mg/dL (70-99) 120 mg/dL (70-99) Assessment and Plan Assessmemt and Plan Problems Medical Problems: (1) Atrial fibrillation with RVR Status: Acute ASSESSMENT A. fib with RVR Hypomagnesium Hypokalemia Smoker - 1.5 PPD Hypertension Hyperlipidemia GERD Diverticulosis Carotid stenosis s/p CEA PLAN Telemetry monitoring Trend magnesium and potassium Nicotine patch given Cardizem PO Eliquis PO Home meds Outpatient echo Full code Discharge when cleared by cardiology Appreciate cardiology input Comment Review of Relevant I have reviewed the following items luis (where applicable) has been applied. Medications: Current Medications Medications (Trade) Dose Ordered Sig/Maryanne Route PRN Reason Start Time Stop Time Status Last Admin Dose Admin Diltiazem HCl (Cardizem 24hr Cd) 240 mg DAILY PO 03/31/20 09:00 03/31/20 08:36 Diltiazem HCl (Cardizem 24hr Cd) 120 mg 1X ONCE PO 03/30/20 12:15 03/30/20 12:40 DC 03/30/20 13:05 Acetaminophen (Tylenol) 650 mg PRN Q6HRS PRN PO PAIN 03/31/20 04:30 03/31/20 04:39 Justicifation of Admission Dx: Justifications for Admission: Justification of Admission Dx: Yes ADIS POP III DO Mar 31, 2020 12:27
--- NOTE | 2020-03-31 14:09 | NUR ---
SS following for discharge planning. SS reviewed pt chart and discussed with pt RN. Pt is from home with spouse and is currently on room air. Discharge plan is to home when medically ready. SS will continue to follow for discharge planning.
[2020-03-31 14:59] VITALS: BP 127/82
--- NOTE | 2020-03-31 16:01 | PDOC ---
BHANUYARI QUIROZ COTTON ACREAGE MEASURER 03/31/20 1601: CARDIO Progress Notes Date and Time Date of Service 03/31/20 Time of Evaluation 1210 Subjective Subjective: No Chest Pain, No shortness of breath Vitals Vitals Vital Signs Date Time Temp Pulse Resp B/P (MAP) Pulse Ox O2 Delivery O2 Flow Rate FiO2 03/31/20 14:59 97.8 92 20 127/82 (97) 96 Room Air 97.8 03/30/20 15:31 2.0 Weight Weight [ ] Input and Output Intake and Output Intake and Output 03/31/20 07:00 Intake Total 100 ml Output Total 0 ml Balance 100 ml Intake Oral 100 ml Output Urine Total 0 ml # Voids 3 Laboratory Labs Laboratory Tests Test 03/30/20 16:47 03/30/20 20:59 03/31/20 08:00 03/31/20 11:52 Glucose (Fingerstick) 134 mg/dL (70-99) 138 mg/dL (70-99) 137 mg/dL (70-99) 120 mg/dL (70-99) Physical Exam HEENT: Neck Supple W Full Motion Chest: Symmetric LUNGS: Clear to Auscultation Heart: S1S2, irregularly irregular (AFIB, rate intermittently elevated ) Extremities: No Edema Neurology: alert, oriented, follow commands Assessment Assessment 1. AFIB with RVR, new onset. HR better controll overall, but continues to have intermittent RVR this am. . 2. Hypokalemia, hypomagnesemia; replaced. 3. Hypertension: controlled 4. Hyperlipidemia: On Zetia as outpatient 5. Tobaccoism; discussed/encouraged cessation Recommendations Increase Cardizem to 360mg. Continue Eliquis for stroke prophylaxis. If HR remains uncontrolled overnight, will plan for inpatient LUIS guided CV tomorrow. NPO p MN Will arrange outpatient ischemic evaluation with MPI Justicifation of Admission Dx: Justifications for Admission: Justification of Admission Dx: Yes YOBANY ANDREW MD 03/31/20 1728: CARDIO Progress Notes Assessment Assessment Patient seen and examined. Agree with INTERLOCKING PAVEMENT INSTALLER's assessment and plan. Atrial fibrillation with heart rate difficult to control despite up titration of Cardizem dose Continue Eliquis for stroke prophylaxis and plan LUIS guided cardioversion tomorrow. Risks and benefits were explained and she is agreeable. BHANUYARI QUIROZ JULIA Mar 31, 2020 16:01 YOBANY ANDREW MD Mar 31, 2020 17:28
[2020-03-31] MEDS ORDERED: LIDOCAINE 2% TOPICAL JELLY 5GM TUBE. TP ONE (16:45)
[2020-03-31] MEDS ORDERED: LIDOCAINE 2% VISCOUS 15 ML SOLUTION. MM ONE (16:45)
[2020-03-31] MEDS ORDERED: 0.9 % SODIUM CHLORIDE 10 ML DISP.SYRIN. IV PRN (16:45)
[2020-03-31] MEDS ORDERED: BENZOCAINE ONE 20% MUCOSAL SPRAY. MM (16:45)
[2020-03-31 19:56] VITALS: BP 179/96
[2020-03-31 22:30] VITALS: BP 174/95
[2020-04-01 02:30] VITALS: BP 159/90
--- NOTE | 2020-04-01 05:25 | EKG ---
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
[2020-04-01 05:43] LABS: CALCIUM 9.5 mg/dL (8.5-10.1); CREATININE 0.7 mg/dL (0.6-1.0); GFR 85.4; POTASSIUM 3.8 mmol/L (3.5-5.1)
[2020-04-01 05:44] LABS: CHOLESTEROL/HDL RATIO 3.2
[2020-04-01 07:00] VITALS: BP 139/86
[2020-04-01] MEDS: INSULIN LISPRO 300 UNITS/3 ML VIAL. SQ SCH ×4 (07:30→21:00)
[2020-04-01] MEDS: BUDESONIDE 0.5 MG/2 ML NEBU. NEB SCH ×2 (08:00→19:43)
[2020-04-01] MEDS: IPRATRPIUM/ALBUTEROL 0.5/2.5MG 3 ML NEBU. NEB SCH ×4 (08:00→19:40)
[2020-04-01] MEDS: ASPIRIN ENTERIC COATED 81 MG TABLET.DR. PO SCH (08:24)
[2020-04-01] MEDS: PANTOPRAZOLE 40 MG TABLET.DR. PO SCH (08:24)
[2020-04-01] MEDS: EZETIMIBE 10 MG TABLET. PO SCH (08:24)
[2020-04-01] MEDS: LISINOPRIL 20 MG TABLET PO SCH (08:25)
[2020-04-01] MEDS: MAGNESIUM OXIDE 400 MG TABLET PO SCH (08:26)
[2020-04-01] MEDS: APIXABAN 5 MG TABLET. PO SCH ×2 (08:26→20:55)
[2020-04-01] MEDS: POTASSIUM CHLORIDE 10 MEQ TABLET.ER. PO SCH (08:26)
[2020-04-01] MEDS: NICOTINE 21MG PATCH. TD SCH (08:29)
[2020-04-01 11:00] VITALS: BP 146/72
[2020-04-01] MEDS ORDERED: BENZOCAINE ONE 20% MUCOSAL SPRAY. (11:42)
[2020-04-01] MEDS ORDERED: LIDOCAINE 2% VISCOUS 15 ML SOLUTION. ONE (11:42)
[2020-04-01] MEDS ORDERED: LIDOCAINE 2% TOPICAL JELLY 30GM TUBE. TP ONE (11:42)
--- NOTE | 2020-04-01 11:54 | PDOC ---
[facility] PROGRESS NOTE Date of Service DOS: DATE: 04/01/20 TIME: 11:48 Chief Complaint Chief Complaint A. fib with RVR Hypomagnesium Hypokalemia Smoker - 1.5 PPD Hypertension Hyperlipidemia GERD Diverticulosis Carotid stenosis s/p CEA History of Present Illness History of Present Illness 04/01/2020 Patient seen and examined LUIS guided CV planned for today Cardizem dose increased per cardiology Heart rate decreased to 78-98 overnight Potassium has stabilized to 3.8 Discussed with RN Chart reviewed 03/31/2020 Patient seen and examined Patient resting comfortably, afebrile, on RA Tachycardic in the 160s today. Improved with IV metoprolol. Magnesium has improved to 2.4 Potassium has improved to 3.6 Discussed with RN Chart reviewed Vitals/I&O Vitals/I&O: Vital Signs Date Time Temp Pulse Resp B/P (MAP) Pulse Ox O2 Delivery O2 Flow Rate FiO2 04/01/20 08:25 78 159/90 04/01/20 08:01 97 Room Air 04/01/20 07:00 97.7 16 97.7 I & O 03/31/20 03/31/20 04/01/20 15:00 23:00 07:00 Intake Total 350 ml 300 ml 0 ml Balance 350 ml 300 ml 0 ml Physical Exam General: Alert, Oriented X3, Cooperative, No acute distress Heart: Other (Heart rate is irregular) Lungs: Clear Abdomen: Soft, No tenderness Extremities: No clubbing, No cyanosis, No edema Skin: No rashes, No breakdown, No significant lesion Labs Labs: Laboratory Tests Test 03/31/20 11:52 03/31/20 16:35 03/31/20 20:56 04/01/20 03:50 Glucose (Fingerstick) 120 mg/dL (70-99) 142 mg/dL (70-99) 154 mg/dL (70-99) Sodium Level 142 mmol/L (136-145) Potassium Level 3.8 mmol/L (3.5-5.1) Chloride Level 102 mmol/L (98-107) Carbon Dioxide Level 30 mmol/L (21-32) Anion Gap 10 (6-14) Blood Urea Nitrogen 11 mg/dL (7-20) Creatinine 0.7 mg/dL (0.6-1.0) Estimated GFR (Cockcroft-Gault) 85.4 Glucose Level 112 mg/dL (70-99) Calcium Level 9.5 mg/dL (8.5-10.1) Triglycerides Level 97 mg/dL (0-150) Cholesterol Level 202 mg/dL (0-200) LDL Cholesterol, Calculated 120 mg/dL (0-100) VLDL Cholesterol, Calculated 19 mg/dL (0-40) Non-HDL Cholesterol Calculated 139 mg/dL (0-129) HDL Cholesterol 63 mg/dL (40-60) Cholesterol/HDL Ratio 3.2 Test 04/01/20 07:30 04/01/20 10:20 Glucose (Fingerstick) 132 mg/dL (70-99) SARS-CoV-2 Antigen (Rapid) Negative (NEGATIVE) Assessment and Plan Assessmemt and Plan Problems Medical Problems: (1) Atrial fibrillation with RVR Status: Acute ASSESSMENT A. fib with RVR Hypomagnesium Hypokalemia Smoker - 1.5 PPD Hypertension Hyperlipidemia GERD Diverticulosis Carotid stenosis s/p CEA PLAN LUIS guided CV planned for today Telemetry monitoring Trend magnesium and potassium Nicotine patch given Cardizem PO Eliquis PO Home meds Full code Discharge when cleared by cardiology Appreciate cardiology input Comment Review of Relevant I have reviewed the following items luis (where applicable) has been applied. Medications: Current Medications Medications (Trade) Dose Ordered Sig/Maryanne Route PRN Reason Start Time Stop Time Status Last Admin Dose Admin Diltiazem HCl (Cardizem 24hr Cd) 360 mg DAILY PO 04/01/20 09:00 04/01/20 08:25 Justicifation of Admission Dx: Justifications for Admission: Justification of Admission Dx: Yes ADIS POP III DO Apr 01, 2020 11:54
[2020-04-01] MEDS ORDERED: PROPOFOL 10 MG/ML (20ML) VIAL. IV ONE (12:49)
--- NOTE | 2020-04-01 13:40 | NUR ---
SS following up with discharge planning. SS reviewed pt chart and discussed with pt RN. Pt is having cardioversion today. Pt is currently on room air. Discharge order on the chart for home with self care. Cardiology requesting to monitor for one more day. SS will continue to follow for discharge planning.
[2020-04-01 15:00] VITALS: BP 118/73
--- NOTE | 2020-04-01 19:21 | PDOC4 ---
Procedure Note Procedure: LUIS guided cardioversion Indications: Atrial fibrillation with difficult to control HR Complications: none Procedural Details: An informed consent was obtained from patient. Anesthesiology team administered intravenous propofol for deep sedation. LUIS with standard tomographic images was obtained that ruled out any obvious intracardiac thrombus. Patient was then given 200 J synchronized biphasic DC current with successful conversion of rhythm from atrial fibrillation to SR. She was hemodynamically stable and without neurologic deficits at the end of procedure. She tolerated the procedure well. Conclusions: Successful LUIS guided cardioversion of atrial fibrillation to sinus rhythm YOBANY ANDRWE MD Apr 01, 2020 19:21
[2020-04-01 19:36] VITALS: BP 142/79
[2020-04-01 23:14] VITALS: BP 161/78
[2020-04-02 03:21] VITALS: BP 162/79
[2020-04-02 04:28] LABS: CALCIUM 9.2 mg/dL (8.5-10.1); CREATININE 0.8 mg/dL (0.6-1.0); GFR 73.2; POTASSIUM 3.5 mmol/L (3.5-5.1)
[2020-04-02 07:00] VITALS: BP 144/93
[2020-04-02] MEDS: INSULIN LISPRO 300 UNITS/3 ML VIAL. SQ SCH ×2 (07:30→11:30)
[2020-04-02] MEDS: BUDESONIDE 0.5 MG/2 ML NEBU. NEB SCH (08:00)
[2020-04-02] MEDS: IPRATRPIUM/ALBUTEROL 0.5/2.5MG 3 ML NEBU. NEB SCH ×2 (08:10→11:52)
[2020-04-02] MEDS: NICOTINE 21MG PATCH. TD SCH (08:21)
[2020-04-02] MEDS: POTASSIUM CHLORIDE 10 MEQ TABLET.ER. PO SCH (08:22)
[2020-04-02] MEDS: PANTOPRAZOLE 40 MG TABLET.DR. PO SCH (08:22)
[2020-04-02] MEDS: MAGNESIUM OXIDE 400 MG TABLET PO SCH (08:23)
[2020-04-02] MEDS: EZETIMIBE 10 MG TABLET. PO SCH (08:23)
[2020-04-02] MEDS: ASPIRIN ENTERIC COATED 81 MG TABLET.DR. PO SCH (08:23)
[2020-04-02] MEDS: LISINOPRIL 20 MG TABLET PO SCH (08:23)
[2020-04-02] MEDS: APIXABAN 5 MG TABLET. PO SCH (08:24)
--- NOTE | 2020-04-02 08:34 | PDOC ---
[facility] PROGRESS NOTE Date of Service DOS: DATE: 04/02/20 TIME: 08:27 Chief Complaint Chief Complaint A. fib with RVR Hypomagnesium Hypokalemia Smoker - 1.5 PPD Hypertension Hyperlipidemia GERD Diverticulosis Carotid stenosis s/p CEA History of Present Illness History of Present Illness 04/02/2020 Patient seen and examined Patient is in NAD, resting comfortably LUIS guided CV performed 04/01, no thrombus was found and she is in sinus rhythm this morning Discussed with RN Chart reviewed 04/01/2020 Patient seen and examined LUIS guided CV planned for today Cardizem dose increased per cardiology Heart rate decreased to 78-98 overnight Potassium has stabilized to 3.8 Discussed with RN Chart reviewed 03/31/2020 Patient seen and examined Patient resting comfortably, afebrile, on RA Tachycardic in the 160s today. Improved with IV metoprolol. Magnesium has improved to 2.4 Potassium has improved to 3.6 Discussed with RN Chart reviewed Vitals/I&O Vitals/I&O: Vital Signs Date Time Temp Pulse Resp B/P (MAP) Pulse Ox O2 Delivery O2 Flow Rate FiO2 04/02/20 08:23 94 162/79 04/02/20 08:13 95 Room Air 04/02/20 03:21 98.1 18 2.0 98.1 I & O 04/01/20 04/01/20 04/02/20 15:00 23:00 07:00 Intake Total 0 ml 0 ml Balance 0 ml 0 ml Physical Exam General: Alert, Oriented X3, Cooperative, No acute distress Heart: Regular rate, Other (Heart rate was irregular, cardioversion performed 04/01/20) Lungs: Clear Abdomen: Soft, No tenderness Extremities: No clubbing, No cyanosis, No edema, No tenderness/swelling Skin: No rashes, No breakdown, No significant lesion Labs Labs: Laboratory Tests Test 04/01/20 10:20 04/01/20 12:06 04/01/20 17:17 04/01/20 21:12 SARS-CoV-2 Antigen (Rapid) Negative (NEGATIVE) Glucose (Fingerstick) 115 mg/dL (70-99) 143 mg/dL (70-99) 148 mg/dL (70-99) Test 04/02/20 03:10 04/02/20 07:46 Sodium Level 141 mmol/L (136-145) Potassium Level 3.5 mmol/L (3.5-5.1) Chloride Level 101 mmol/L (98-107) Carbon Dioxide Level 31 mmol/L (21-32) Anion Gap 9 (6-14) Blood Urea Nitrogen 12 mg/dL (7-20) Creatinine 0.8 mg/dL (0.6-1.0) Estimated GFR (Cockcroft-Gault) 73.2 Glucose Level 115 mg/dL (70-99) Calcium Level 9.2 mg/dL (8.5-10.1) Glucose (Fingerstick) 130 mg/dL (70-99) Assessment and Plan Assessmemt and Plan Problems Medical Problems: (1) Atrial fibrillation with RVR Status: Acute ASSESSMENT A. fib with RVR Hypomagnesium Hypokalemia Smoker - 1.5 PPD Hypertension Hyperlipidemia GERD Diverticulosis Carotid stenosis s/p CEA PLAN Probable discharge today pending cardiology Telemetry monitoring Nicotine patch given Cardizem PO +- Eliquis? (Will leave this to cardiology) Home meds Full code Appreciate cardiology input Comment Review of Relevant I have reviewed the following items luis (where applicable) has been applied. Medications: Current Medications Medications (Trade) Dose Ordered Sig/Maryanne Route PRN Reason Start Time Stop Time Status Last Admin Dose Admin Diltiazem HCl (Cardizem 24hr Cd) 360 mg DAILY PO 04/01/20 09:00 04/02/20 08:22 Justicifation of Admission Dx: Justifications for Admission: Justification of Admission Dx: Yes ADIS POP III DO Apr 02, 2020 08:34
[2020-04-02 11:00] VITALS: BP 134/80
--- NOTE | 2020-04-02 12:35 | CARD ---
MR#: [id number] Date of Study: 04/01/2020 Ordering Physician: YARI DRUMMOND, Referring Physician: YARI DRUMMOND Tech: Analia Stanley RDCS APPROVED REPORT EXAM: Transesophageal echocardiogram with color flow Doppler and Synchronized Cardioversion. INDICATION Atrial Fibrillation PROCEDURE After obtaining informed consent, patient underwent transesophageal echo in the PACU. Type of Sedation : General Anesthesia Sedation was administered by Winston Shah CRNA. Sedation was achieved with Propofol 180 mg intravenously. Transesophageal probe was inserted and advanced into esophagus by Mauricio Thomason MD. The LUIS was performed without complications. Throughout the procedure, the blood pressure, pulse oximetry, cardiac rhythm, and rate were monitored . The patient tolerated the procedure without adverse effects. Recovery from general anesthesia was une ventful and vital signs were stable. LEFT VENTRICLE The left ventricular systolic function is normal. The Ejection Fraction is 55%. There is normal LV se gmental wall motion. RIGHT VENTRICLE The right ventricle is normal size. The right ventricular systolic function is normal. ATRIA The left atrium is mildly dilated. The right atrium is mildly dilated. The interatrial septum is inta ct with no evidence for an atrial septal defect or patent foramen ovale as noted on 2-D or Doppler im aging. There is no thrombus noted in the left atrial appendage. AORTIC VALVE The aortic valve is normal in structure and function. Doppler and Color Flow revealed no significant aortic regurgitation. There is no significant aortic valvular stenosis. MITRAL VALVE The mitral valve is calcified but opens well. There is no evidence of mitral valve prolapse. There is no mitral valve stenosis. Doppler and Color-flow revealed mild mitral regurgitation. TRICUSPID VALVE The tricuspid valve is normal in structure and function. Doppler and Color Flow revealed trace tricus pid regurgitation. PULMONIC VALVE The pulmonic valve is not well visualized. PERICARDIAL EFFUSION There is no evidence of significant pericardial effusion. Critical Notification Critical Value: No <Conclusion> The left ventricular systolic function is normal. The Ejection Fraction is 55%. There is normal LV segmental wall motion. Mild mitral regurgitation. Trace tricuspid regurgitation. There is no evidence of significant pericardial effusion. No intracardiac vegetation or thrombus Patient was then successfully converted to sinus rhythm with 200 J shock therapy, reported separately . Signed by : Mauricio Thomason, Electronically Approved : 04/02/2020 12:35:36
[2020-04-02] MEDS ORDERED: APIX5TAB PO (12:44)
[2020-04-02] MEDS ORDERED: DILT180C29 PO (12:44)
[2020-04-02] MEDS ORDERED: LISI-130 PO (12:44)
--- NOTE | 2020-04-02 12:54 | PDOC ---
DEANN SCHWARZ BRICKLAYER SUPERVISOR 04/02/20 1254: CARDIO Progress Notes Date and Time Date of Service 04/02/2020 Time of Evaluation 1200 Subjective Subjective: No Chest Pain, No shortness of breath, No Palpitations Vitals Vitals Vital Signs Date Time Temp Pulse Resp B/P (MAP) Pulse Ox O2 Delivery O2 Flow Rate FiO2 04/02/20 11:53 Room Air 04/02/20 11:00 97.8 103 16 134/80 (98) 92 97.8 04/02/20 03:21 2.0 Weight Weight [ ] Input and Output Intake and Output Intake and Output 04/02/20 07:00 Intake Total 0 ml Balance 0 ml Intake Oral 0 ml Laboratory Labs Laboratory Tests Test 04/01/20 17:17 04/01/20 21:12 04/02/20 03:10 04/02/20 07:46 Glucose (Fingerstick) 143 mg/dL (70-99) 148 mg/dL (70-99) 130 mg/dL (70-99) Sodium Level 141 mmol/L (136-145) Potassium Level 3.5 mmol/L (3.5-5.1) Chloride Level 101 mmol/L (98-107) Carbon Dioxide Level 31 mmol/L (21-32) Anion Gap 9 (6-14) Blood Urea Nitrogen 12 mg/dL (7-20) Creatinine 0.8 mg/dL (0.6-1.0) Estimated GFR (Cockcroft-Gault) 73.2 Glucose Level 115 mg/dL (70-99) Calcium Level 9.2 mg/dL (8.5-10.1) Test 04/02/20 11:55 Glucose (Fingerstick) 102 mg/dL (70-99) Physical Exam HEENT: Neck Supple W Full Motion Chest: Symmetric LUNGS: Clear to Auscultation Heart: RRR (SR/ST), irregularly irregular (AFIB, rate intermittently elevated ) Abdomen: Soft N/T Extremities: No Edema Neurology: alert, oriented, follow commands Assessment Assessment 1. AFIB with RVR, new onset. Post CVN, maintaining SR/ST 2. Hypokalemia, hypomagnesemia 3. Hypertension: controlled 4. Hyperlipidemia: On Zetia as outpatient 5. Tobaccoism Recommendations 1. Continue cardizem CD 360 mg. Continue home atenolol. Last dose clonidine almost a week ago. No rebound so far. Will DC.DC norvasc Continue home lisinopril. HBPM bid in the next week and call if outside parameters 2. Continue Eliquis for stroke prophylaxis. Replace Mg and K as warranted. If Mg is low then may take extra dosing of home Mg oxide. 3. Outpt stress test 4. Smoking cessation Justicifation of Admission Dx: Justifications for Admission: Justification of Admission Dx: Yes YOBANY ANDREW MD 04/02/202051: CARDIO Progress Notes Assessment Assessment Patient seen and examined. Agree with SPINNING AND WINDING SUPERVISOR's assessment and plan. s/p LUIS guided cardioversion yesterday for difficult to control HR Continue eliquis for stroke prophylaxis Plan outpatient ischemic evaluation DEANN SCHWARZ APRN Apr 02, 2020 12:54 YOBANY ANDREW MD Apr 02, 2020 20:52
--- NOTE | 2020-04-02 14:33 | NUR ---
Discharge Note: HOLLY ANDERSON [address] Discharge instructions and discharge home medications reviewed with Patient and a copy given. All questions have been answered and understanding verbalized. The following instructions and handouts were given: darius lujan lisinopril Patient discharged to home with self care via ambulatory.
--- NOTE | 2020-04-10 21:35 | DS ---
DATE OF DISCHARGE: 04/02/2020 ADMISSION DIAGNOSIS: New-onset atrial fibrillation. DISCHARGE DIAGNOSIS: Resolving atrial fibrillation (she went for a cardioversion). HOSPITAL COURSE: The patient is a pleasant 59-year-old female who presented with new-onset AFib and hypomagnesemia. We replaced her mag, did some cardiac monitoring and put her on anticoagulation, but she just did not convert. We then stopped the anticoagulation and took her for cardioversion. Post-procedure, she did well. We discharged her to home. DISPOSITION: Home. ACTIVITY: As tolerated. DIET: Low sodium. MEDICATIONS: Please see the MRAD. TOTAL TIME: 36 minutes. ADIS POP DO DR: KASHMIR/sofia JOB#: [id number] / [id number]
== END 2020-04-02 14:37 | disposition home or self-care (01) | DRG 309 ==
LOC: ER 16:20 → 2 NORTH 18:01
PROVIDERS: ADMIT Internal Medicine; ATTEND Internal Medicine
PROC: 5A2204Z Restoration of Cardiac Rhythm, Single (ICD-10-PCS; principal; 2020-03-28)
PROC: B24BZZ4 Ultrasonography of Heart with Aorta, Transesophageal (ICD-10-PCS; 2020-03-28)
DX: I48.91 Unspecified atrial fibrillation (principal); R65.10 Systemic inflammatory response syndrome (SIRS) of non-infectious origin without acute organ dysfunction; K21.9 Gastro-esophageal reflux disease without esophagitis; E83.42 Hypomagnesemia; J44.9 Chronic obstructive pulmonary disease, unspecified; E11.9 Type 2 diabetes mellitus without complications; E78.00 Pure hypercholesterolemia, unspecified; E78.5 Hyperlipidemia, unspecified; E87.6 Hypokalemia; F17.210 Nicotine dependence, cigarettes, uncomplicated; I10 Essential (primary) hypertension; I65.29 Occlusion and stenosis of unspecified carotid artery; K57.90 Diverticulosis of intestine, part unspecified, without perforation or abscess without bleeding; Z79.01 Long term (current) use of anticoagulants; Z79.899 Other long term (current) drug therapy; Z82.49 Family history of ischemic heart disease and other diseases of the circulatory system; Z20.828 Contact with and (suspected) exposure to other viral communicable diseases; Z98.51 Tubal ligation status
CPT/HCPCS: 36415; 80048; 80061; 80076; 81001; 82962; 83036; 83690; 83735; 84443; 84484; 85025; 85610; 87426; 92960; 93005; 93312; 93325; 94640; 94760; 96361; 96365; 96372; 96375; J1160; J1650; J1815; J2704; J3475; J3490; J7030; 99285-25; G0378; J7626; U0003-CS

== ENCOUNTER → 2020-04-29 | Outpatient (CLI) | payer OTHER ==
[2020-04-02 11:00] VITALS: BP 134/80
[~2020-04-29] MED LIST changes: +APIX5TAB PO; +CLON0.1T PO; +CLON0.2T PO; +DILT180C29 PO; +EZET10TA48 PO; +GLYC10.7 IH; +LISI-130 PO; +REGADENOSON 0.4 MG/5 ML DISP.SYRIN. IV ONE
--- NOTE | 2020-04-29 13:40 | RAD ---
MR#: [id number] Date of Study: 04/29/2020 Ordering Physician: YOBANY ANDREW, Referring Physician: KENYA ORNELAS Tech: KALEIGH Mcghee, ARRT (R) (N) APPROVED REPORT Test Type: Pharmacological Stress Nurse/Tech: Keke Galicia R.N. Test Indications: afib Cardiac History: afib,htn Medications: See Electronic Medical Record Medical History: See Electronic Medical Record Resting ECG: SR Resting Heart Rate: 65 bpm Resting Blood Pressure: 138/63mmHg Pretest Chest Pain: No chest pain Nurse/Tech Notes S1S2, lungs CTA Consent: The procedure was explained to the patient in lay terms. Informed consent was witnessed. Sundeep eout was entered into [employer] History and Stress Test performed by RT Pavan (R) (N) Pharm. Details Pharmacologic stress testing was performed using 0.4mg per 5ml of regadenoson given intravenously ove r 7-10 seconds. Stress Symptoms SOA POST EXERCISE Reason for Termination: Infusion complete Max HR: 91 bpm Max Blood Pressure: 129/65mmHg Blood Pressure response to exercise: Normal blood pressure response during stress. Heart Rate response to exercise: wnl Chest Pain: No. Arrhythmia: No. ST Change: No. INTERPRETATION Stress EKG Conclusion: No evidence of stress induced EKG changes. Imaging Protocol IMAGE PROTOCOL: Rest Tc-99m/stress Tc-99m 1 day Rest: Stress: Viability: Radiopharm.Tc99m NuumnounmKa54f Sestamibi Wwjv58xUh 32mCi Img Date 04/29/2020 04/29/2020 Rest Admin Site:IV - Left AntecubitalAdministrator:RT Pavan (R)(N) Stress Admin Site: IV - Left AntecubitalAdministrator: RT Pavan (R)(N) STRESS DATA End Diast. Vol.73.0mlAv. Heart Rate64.0bpm End Syst. Vol.29.0mlCO Index BSA2.8L/min Myocardial Asak364.0gEject. Lbyfdqda00.0% Stress Rates Pk. Fill Rate3.32EDV/secLVtime Pk. Fill 195.41msec Pk. Empty Rate4.03ESV/secLVtime Pk. Euryz012.14msec /3 Pk. Fill1.11EDV/sec Stress Scores Regional WT0.00Summed WT8.00 Regional WM0.00Summed WM3.00 LV Perfusion Fixed apical defect with normal perfusion otherwise. Wall Motion Normal wall motion. LV Perf. Quant 17 Seg. SSS5.00 17 Seg. SRS9.00 17 Seg. SDS0.00 Stress Defect Extent (% LAD)16.90Rest Defect Extent (% LAD)36.90Rev. Defect Extent (% LAD)0.00 Stress Defect Extent (% LCX) 12.50Rest Defect Extent (% LCX)20.00Rev. Defect Extent (% LCX)0.00 Stress Defect Extent (% RCA)0.00Rest Defect Extent (% RCA)0.00Rev. Defect Extent (% RCA)0.00 Stress Defect Extent (% ANGELITA)12.00Rest Defect Extent (% ANGELITA)25.20Rev. Defect Extent (% ANGELITA)0.00 Other Information Quality:Fair Risk Assessment: Low Risk Conclusion 1. No evidence of stress induced EKG changes. 2. Fixed apical defect. Significant subdiaphragmatic attenuation due to gut artifact and motion but w ithin these limitations, no significant ischemia. 3. Normal EF at > 55% 4. Low risk study Signed by : Mauricio Cruz, Electronically Approved : 04/29/2020 13:39:52
== END | disposition home or self-care (01) ==
LOC: NM 08:59
PROVIDERS: ATTEND Internal Medicine Cardiovascular Disease
DX: I48.91 Unspecified atrial fibrillation (principal); I10 Essential (primary) hypertension
CPT/HCPCS: 78452; 93017; A9500; J2785

== ENCOUNTER 2020-10-29 23:14 | Emergency (ER) | payer OTHER ==
[~2020-10-29] VITALS: Ht 162.6 cm; Wt 78.6 kg
[~2020-10-29 23:14] MED LIST changes: +AMLO-186 PO; -AMLO5TAB10 PO; -ISOS30TA4 PO; +ISOS30TA68 PO; -REGADENOSON 0.4 MG/5 ML DISP.SYRIN. IV ONE
--- NOTE | 2020-10-29 23:40 | ED.ADGEN ---
Past Medical History Past Medical History: Diverticulitis, GERD, High Cholesterol, Hypertension Additional Past Medical Histor: Hypokalemia Past Surgical History: Cholecystectomy, Tubal ligation Additional Past Surgical Histo: right knee; left foot,carotid endarterectomy Smoking Status: Current Every Day Smoker Alcohol Use: Heavy Drug Use: None General Adult EDM: Chief Complaint: HEADACHE HPI: HPI: Patient is a 60 year old female coming in for to 3 days of headache is mostly on the right to the base of her neck that comes and goes. Patient states tonight he started having whole body aches was unable to get comfortable to sleep. Not take anything for pain. Patient is a history of multiple electrolyte abnormalities but states this feels a little bit different. Denies any vision changes, sudden onset headache. Patient states she has had increased nonproductive cough from her baseline. Denies any fevers, sore throat, congestion, changes in urination. Has had some nausea but no vomiting and no diarrhea. She has had decreased p.o. intake recently. Received her second of 19 vaccine almost a month ago. Review of Systems: Review of Systems: All other systems within normal limits except for as noted in the HPI Current Medications: Current Medications Medications (Trade) Dose Ordered Sig/Maryanne Start Time Stop Time Status Last Admin Dose Admin Fentanyl Citrate (Fentanyl 2ml Vial) 75 mcg 1X ONCE 10/30/20 00:30 10/30/20 00:31 DC 10/30/20 00:13 75 MCG Magnesium Sulfate/ Dextrose 100 ml @ 100 mls/hr 1X ONCE 10/30/20 01:00 10/30/20 01:59 Methylprednisolone Sodium Succinate (SOLU-Medrol 125MG VIAL) 125 mg 1X ONCE 10/30/20 01:00 10/30/20 01:01 Sodium Chloride 500 ml @ 500 mls/hr 1X ONCE 10/30/20 00:30 10/30/20 01:29 10/30/20 00:14 500 MLS/HR Allergies: Allergies: Allergies Coded Allergies Type Severity Reaction Last Updated Verified shellfish derived Allergy Severe THROAT SWELLING 06/15/17 Yes codeine Adverse Reaction Intermediate vomiting 06/15/17 Yes Physical Exam: PE: Constitutional: Well developed, well nourished, no acute distress, non-toxic appearance. [] HENT: Normocephalic, atraumatic, bilateral external ears normal, nose normal. [] Eyes: PERRLA, conjunctiva normal, no discharge. [] Neck: No rigidity, supple, no stridor. [] Cardiovascular: Regular rate and rhythm, brisk cap refill [] Lungs & Thorax: Non labored symmetric respirations, no tachypnea or respiratory distress [] Abdomen: Soft, nondistended. Skin: Warm, dry, no erythema, no rash. [] Back: Unremarkable Extremities: No deformities, range of motion grossly intact, no lower extremity edema [] Neurologic: Alert and oriented X 3, no focal deficits noted. [] Psychologic: Affect normal, judgement normal, mood normal. [] Current Patient Data: Labs: Laboratory Tests Test 10/29/20 23:20 10/29/20 23:55 10/30/20 00:20 Urine Collection Type Unknown Urine Color Yellow Urine Clarity Clear Urine pH 6.0 (<5.0-8.0) Urine Specific [place] <=1.005 (1.000-1.030) Urine Protein Negative mg/dL (NEG-TRACE) Urine Glucose (UA) Negative mg/dL (NEG) Urine Ketones (Stick) Negative mg/dL (NEG) Urine Blood Negative (NEG) Urine Nitrite Negative (NEG) Urine Bilirubin Negative (NEG) Urine Urobilinogen Dipstick 0.2 mg/dL (0.2 mg/dL) Urine Leukocyte Esterase Negative (NEG) Urine RBC 0 /HPF (0-2) Urine WBC 0 /HPF (0-4) Urine Squamous Epithelial Cells Few /LPF Urine Bacteria 0 /HPF (0-FEW) White Blood Count 4.9 x10^3/uL (4.0-11.0) Red Blood Count 4.09 x10^6/uL (3.50-5.40) Hemoglobin 14.5 g/dL (12.0-15.5) Hematocrit 41.2 % (36.0-47.0) Mean Corpuscular Volume 101 fL (79-100) H Mean Corpuscular Hemoglobin 35 pg (25-35) Mean Corpuscular Hemoglobin Concent 35 g/dL (31-37) Red Cell Distribution Width 13.7 % (11.5-14.5) Platelet Count 252 x10^3/uL (140-400) Neutrophils (%) (Auto) 58 % (31-73) Lymphocytes (%) (Auto) 32 % (24-48) Monocytes (%) (Auto) 7 % (0-9) Eosinophils (%) (Auto) 2 % (0-3) Basophils (%) (Auto) 1 % (0-3) Neutrophils # (Auto) 2.8 x10^3/uL (1.8-7.7) Lymphocytes # (Auto) 1.6 x10^3/uL (1.0-4.8) Monocytes # (Auto) 0.3 x10^3/uL (0.0-1.1) Eosinophils # (Auto) 0.1 x10^3/uL (0.0-0.7) Basophils # (Auto) 0.0 x10^3/uL (0.0-0.2) Sodium Level 133 mmol/L (136-145) L Potassium Level 3.3 mmol/L (3.5-5.1) L Chloride Level 93 mmol/L (98-107) L Carbon Dioxide Level 23 mmol/L (21-32) Anion Gap 17 (6-14) H Blood Urea Nitrogen 6 mg/dL (7-20) L Creatinine 0.9 mg/dL (0.6-1.0) Estimated GFR (Cockcroft-Gault) 63.7 BUN/Creatinine Ratio 7 (6-20) Glucose Level 107 mg/dL (70-99) H Lactic Acid Level 1.6 mmol/L (0.4-2.0) Calcium Level 8.3 mg/dL (8.5-10.1) L Phosphorus Level 4.0 mg/dL (2.6-4.7) Magnesium Level 1.2 mg/dL (1.8-2.4) L Total Bilirubin 0.3 mg/dL (0.2-1.0) Aspartate Amino Transferase (AST) 20 U/L (15-37) Alanine Aminotransferase (ALT) 34 U/L (14-59) Alkaline Phosphatase 78 U/L (46-116) Troponin I Quantitative < 0.017 ng/mL (0.000-0.055) SE-Fmv-M-Type Natriuretic Peptide 640 pg/mL (0-124) H Total Protein 6.9 g/dL (6.4-8.2) Albumin 3.8 g/dL (3.4-5.0) Albumin/Globulin Ratio 1.2 (1.0-1.7) Influenza Type A Antigen Negative (NEGATIVE) Influenza Type B Antigen Negative (NEGATIVE) Laboratory Tests 10/29/20 23:55 Laboratory Tests 10/29/20 23:55 Vital Signs: Vital Signs Date Time Temp Pulse Resp B/P (MAP) Pulse Ox O2 Delivery O2 Flow Rate FiO2 10/30/20 00:13 93 10/29/20 23:25 97.7 75 18 159/74 (102) Room Air 97.7 EKG: EKG: Sinus rhythm, heart rate 60 bpm, left axis deviation, no ST elevation or depression, no ectopy, normal intervals. [] Heart Score: C/O Chest Pain: No Risk Factors: Risk Factors: DM, Current or recent (<one month) smoker, HTN, HLP, family history of CAD, obesity. Risk Scores: Score 0 - 3: 2.5% MACE over next 6 weeks - Discharge Home Score 4 - 6: 20.3% MACE over next 6 weeks - Admit for Clinical Observation Score 7 - 10: 72.7% MACE over next 6 weeks - Early Invasive Strategies Radiology/Procedures: Radiology/Procedures: XR CHEST 1V INDICATION: cough COMPARISON STUDY: None. FINDINGS: Lungs: Normal lung volume. No pulmonary mass or consolidation. The tracheobronchial tree and hilar structures are normal. Pleura: No pleural effusion or pneumothorax. Heart and Mediastinum: Cardiomegaly. The great vessels of the thorax are normal. IMPRESSION: No acute cardiopulmonary process. [] Course & Med Decision Making: Course & Med Decision Making Pertinent Labs and Imaging studies reviewed. (See chart for details) [] Dragon Disclaimer: Dragon Disclaimer: This electronic medical record was generated, in whole or in part, using a voice recognition dictation system. Departure Departure Impression: Primary Impression: Person under investigation for COVID-19 Additional Impressions: COPD exacerbation Hypomagnesemia Disposition: 01 DC HOME SELF CARE/HOMELESS Condition: STABLE Referrals: Meg NIEVES MD (PCP) Additional Instructions: You have been tested for or diagnosed with COVID-19. It is an infection caused by a new type of coronavirus. COVID-19 will cause cold-like or mild flu symptoms in most. It can cause more severe symptoms like problems breathing in some. There is no treatment for COVID-19. The body will clear the infection over time. Self-care will help to ease discomfort. Steps to Take: Self-Care Rest as needed. Healthy habits may help you feel better. Steps include: Choose healthy foods including fruits and vegetables. Drink water throughout the day. Get plenty of sleep each night. If you smoke, try to quit. It may ease breathing. Avoid alcohol. Keep Others Healthy The virus can spread to others. Droplets are released every time you sneeze or cough. The droplets can get into the mouth, nose, or eyes of people near you and lead to infection. To lower the chances of spreading COVID-19 to others: Stay at home until your doctor has said it is safe to leave. If you tested positive this will mean staying isolated until both of the following are true: At least 7 days have passed since the start of illness. You are free of fever for at least 72 hours without the use of medicine. During this time: - Avoid public areas, events, or transportation. Do not return to work or school until your doctor has said it is safe to do so. - Call ahead if you need to go to a medical center. Let them know you may have COVID-19. It will help them guide you where to go. They may also ask you to wear a facemask when you come to the office. - If you call for emergency medical services, let them know you may have COVID- 19. While at home: - Try to avoid close contact with others. Stay about 6 feet away. - If possible, spend most of your time in a separate room from others. - Use a face mask if you will be in close contact with others such as sharing a room or vehicle. - Have someone wipe down common surfaces in the home. Use household fpga engineer every day on areas like doorknobs, counters, or sinks. - Cough or sneeze into a tissue. Throw the tissue away right after use. If a tissue is not available, cough or sneeze into your elbow. - Wash your hands often. Wash them after sneezing or coughing. Use soap and water and wash for at least 20 seconds. Alcohol based hand kettle cleaner can be used if soap and water is not available. - Do not prepare food for others. Avoid sharing personal items like forks, spoons, or toothbrushes. - Avoid close contact with pets while you are sick. There is no evidence of the virus passing to pets. This is a safety step until more is known about this virus. Isolation can be frustrating. Social interaction can help. Keep in touch with friends and family through phone and tech options. You can still interact with others in your home, just keep a safe distance of about 6 feet. Follow-up: Your doctors office will check in with you to see if there are any changes in your health. You may be asked to keep track of symptoms to share with them. They will also let you know when you are clear to be in public again. Problems to Look Out For: Contact your doctor if your recovery is not going as you expect. Get emergency care if you have problems such as: - Trouble breathing - Nonstop chest pain or pressure - Changes in awareness, confusion, or problems waking - Lips or face have bluish color - Worsening of symptoms If you think you have an emergency, call for emergency medical services right away. As taken from [facility] Health Scripts Azithromycin (ZITHROMAX) 250 Mg Tablet 1 PKG PO UD for antibiotic, #6 TAB Prov: MARQUIS PIERCE MD 10/30/20 Prednisone (PREDNISONE) 50 Mg Tablet 1 TAB PO DAILY for steroid for 5 Days, #5 TAB Prov: MARQUIS PIERCE MD 10/30/20 Problem Qualifiers MARQUIS PIERCE MD Oct 29, 2020 23:40
[2020-10-29 23:45] LABS: BILIRUBIN,URINE NEGATIVE (NEG); CLARITY,URINE CLEAR; COLOR,URINE YELLOW; NITRITE,URINE NEGATIVE (NEG); PROTEIN,URINE NEGATIVE (NEG-TRACE); UROBILINOGEN,URINE 0.2 mg/dL (0.2 mg/dL)
[2020-10-29 23:49] LABS: BACTERIA,URINE 0 /HPF (0-FEW); RBC,URINE 0 /HPF (0-2); WBC,URINE 0 /HPF (0-4)
[2020-10-30 00:06] LABS: BASO % 1 % (0-3); EOS # 0.1 x10^3/uL (0.0-0.7); EOS % 2 % (0-3); HEMATOCRIT 41.2 % (36.0-47.0); HEMOGLOBIN 14.5 g/dL (12.0-15.5); LYMPH # 1.6 x10^3/uL (1.0-4.8); LYMPH % 32 % (24-48); MEAN CORPUSCULAR HEMOGLOBIN 35 pg (25-35); MEAN CORPUSCULAR HGB CONC 35 g/dL (31-37); MEAN CORPUSCULAR VOLUME 101 fL (79-100); MONO # 0.3 x10^3/uL (0.0-1.1); MONO % 7 % (0-9); NEUT # 2.8 x10^3/uL (1.8-7.7); NEUT % 58 % (31-73); PLATELET COUNT 252 x10^3/uL (140-400); RED BLOOD COUNT 4.09 x10^6/uL (3.50-5.40); RED CELL DISTRIBUTION WIDTH 13.7 % (11.5-14.5); WHITE BLOOD COUNT 4.9 x10^3/uL (4.0-11.0)
--- NOTE | 2020-10-30 00:08 | RAD ---
XR CHEST 1V INDICATION: cough COMPARISON STUDY: None. FINDINGS: Lungs: Normal lung volume. No pulmonary mass or consolidation. The tracheobronchial tree and hilar st ructures are normal. Pleura: No pleural effusion or pneumothorax. Heart and Mediastinum: Cardiomegaly. The great vessels of the thorax are normal. IMPRESSION: No acute cardiopulmonary process. Electronically signed by: Bony Yoon MD (10/30/2020 12:05 AM) [facility]
--- NOTE | 2020-10-30 00:12 | EKG ---
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
[2020-10-30 00:20] LABS: CALCIUM 8.3 mg/dL (8.5-10.1); CREATININE 0.9 mg/dL (0.6-1.0); GFR 63.7; POTASSIUM 3.3 mmol/L (3.5-5.1)
[2020-10-30 00:27] LABS: ALBUMIN 3.8 g/dL (3.4-5.0); ALBUMIN/GLOBULIN RATIO 1.2 (1.0-1.7); MAGNESIUM 1.2 mg/dL (1.8-2.4); TOTAL BILIRUBIN 0.3 mg/dL (0.2-1.0); TOTAL PROTEIN 6.9 g/dL (6.4-8.2)
[2020-10-30] MEDS ORDERED: IV NORMAL SALINE 500ML BAG 500 ML IV ONE (00:30)
[2020-10-30] MEDS ORDERED: fentaNYL PF VIAL 100 MCG/2 ML VIAL IVP ONE (00:30)
[2020-10-30 00:46] LABS: INFLUENZA A PATIENT NEGATIVE (NEGATIVE); INFLUENZA B PATIENT NEGATIVE (NEGATIVE)
[2020-10-30] MEDS ORDERED: PRED50TA PO (00:57)
[2020-10-30] MEDS ORDERED: AZIT250T PO (00:57)
[2020-10-30] MEDS ORDERED: MAGNESIUM SULFATE 1GM 100 ML IV ONE (01:00)
[2020-10-30] MEDS ORDERED: methylPREDNISolone SOD SUCC PF 125 MG/2 ML VIAL. IV ONE (01:00)
[2020-10-30 01:56] VITALS: BP 123/58
--- NOTE | 2020-10-31 14:28 | NUR ---
IP: Informed pt of negative COVID test. Pt verbalized understanding.
== END 2020-10-30 02:00 | disposition home or self-care (01) ==
LOC: ER 23:14
DX: J44.1 Chronic obstructive pulmonary disease with (acute) exacerbation (principal); Z20.822 Contact with and (suspected) exposure to COVID-19; E83.42 Hypomagnesemia; R51.9 Headache, unspecified; R05 Cough; K21.9 Gastro-esophageal reflux disease without esophagitis; E78.00 Pure hypercholesterolemia, unspecified; I10 Essential (primary) hypertension; F10.10 Alcohol abuse, uncomplicated; F17.200 Nicotine dependence, unspecified, uncomplicated; Z90.49 Acquired absence of other specified parts of digestive tract; Z98.51 Tubal ligation status; Z98.890 Other specified postprocedural states; Z88.5 Allergy status to narcotic agent; Z91.013 Allergy to seafood
CPT/HCPCS: 36415; 71045; 80053; 81001; 83605; 83735; 83880; 84100; 84484; 85025; 87804; 93005; 96361; 96365; 96375; 99285; J2930; J3010; J3475; J7040; U0003; C9803

== ENCOUNTER → 2021-05-21 | Outpatient (CLI) | payer OTHER ==
[~2021-05-21] MED LIST changes: +AZIT250T PO; -OMEP40CA45 PO; +OMEP40CA7 PO; +PRED50TA PO
--- NOTE | 2021-05-21 17:00 | CARD ---
MR#: [id number] Date of Study: 05/21/2021 Ordering Physician: YOBANY ANDREW, Referring Physician: YOBANY ANDREW, Tech: Christina Pearson [facility] APPROVED REPORT EXAM: Two-dimensional and M-mode echocardiogram with Doppler and color Doppler. Other Information Quality : AverageHR: 85bpm INDICATION COPD Atrial Fibrillation RISK FACTORS Hypertension Smoking 2D DIMENSIONS Left Atrium(2D)3.7 (1.6-4.0cm)IVSd1.0 (0.7-1.1cm) Aortic Root(2D)2.7 (2.0-3.7cm)LVDd4.9 (3.9-5.9cm) LVOT Diameter2.1 (1.8-2.4cm)PWd1.1 (0.7-1.1cm) LVDs2.5 (2.5-4.0cm)FS (%) 48.4 % SV91.6 ml Aortic Valve AoV Peak Buck.136.6cm/sAoV VTI28.4cm AO Peak GR.7.5mmHgLVOT Peak Buck.91.3cm/s LVOT VTI 18.57cmAO Mean GR.4mmHg ANTONIA (VMAX)1.52hd6UOE (VTI)2.21cm2 Mitral Valve MV E Xfqscixy780.0cm/sMV DECEL TLFB818kq MV A Suzruhxi39.3cm/sMV E Mean Gr.3mmHg MV HOI55asY/A Ratio4.1 MVA (PHT)4.86cm2 TDI E/Lateral E'9.1E/Medial E'10.4 Pulmonary Valve PV Peak Gjlysbhe019.2cm/sPV Peak Grad.4mmHg Tricuspid Valve TR P. Ntpwtnef031ea/sRAP CNBTLWXI4jcZl TR Peak Gr.85qqIyWOUI69fgMk LEFT VENTRICLE The left ventricle is normal size. There is borderline to mild concentric left ventricular hypertroph y. The left ventricular systolic function is normal and the ejection fraction is within normal range. The Ejection Fraction is 50-55%. Wall motion consistent with conduction abnormality. The left ventri cular diastolic function and filling is normal for age. RIGHT VENTRICLE The right ventricle is normal size. There is normal right ventricular wall thickness. The right ventr icular systolic function is normal. ATRIA The left atrium is mildly dilated. The right atrium is mildly dilated. The interatrial septum is inta ct with no evidence for an atrial septal defect or patent foramen ovale as noted on 2-D or Doppler im aging. AORTIC VALVE The aortic valve is thickened but opens well. Doppler and Color Flow revealed trace aortic regurgitat ion. Calculated aortic valve area is 2.69 cm2 with maximum pressure gradient of 9 mmHg and mean press ure gradient of 4 mmHg. There is no significant aortic valvular stenosis. MITRAL VALVE The mitral valve is normal in structure and function. There is no evidence of mitral valve prolapse. There is no mitral valve stenosis. Doppler and Color-flow revealed trace mitral regurgitation. TRICUSPID VALVE The tricuspid valve is normal in structure and function. Doppler and Color Flow revealed trace tricus pid regurgitation with an estimated PAP of >45 mmHg. There is no tricuspid valve stenosis. PULMONIC VALVE The pulmonary valve is normal in structure and function. Doppler and Color Flow revealed trace to mil d pulmonic valvular regurgitation. GREAT VESSELS The aortic root is normal in size. The ascending aorta is normal in size. The IVC is normal in size a nd collapses >50% with inspiration. PERICARDIAL EFFUSION There is no evidence of significant pericardial effusion. Critical Notification Critical Value: No <Conclusion> The left ventricle is normal size. The left ventricular systolic function is normal and the ejection fraction is within normal range. The Ejection Fraction is 50-55%. There is borderline to mild concentric left ventricular hypertrophy. Doppler and Color Flow revealed trace aortic regurgitation. There is no significant aortic valvular stenosis. Doppler and Color-flow revealed trace mitral regurgitation. Doppler and Color Flow revealed trace tricuspid regurgitation with an estimated PAP of >45 mmHg. Signed by : Humza Najera MD Electronically Approved : 05/21/2021 17:00:04
== END ==
LOC: ECHO 12:54
PROVIDERS: ATTEND Internal Medicine Cardiovascular Disease
DX: I51.7 Cardiomegaly (principal); I48.0 Paroxysmal atrial fibrillation; J44.9 Chronic obstructive pulmonary disease, unspecified
CPT/HCPCS: 93306

== ENCOUNTER 2021-08-02 10:10 | Emergency (ER) | payer OTHER ==
[~2021-08-02] VITALS: Ht 162.6 cm; Wt 70.0 kg
[~2021-08-02 10:10] MED LIST changes: +AMLO-54 PO; -AMLO1CAP54 PO; +CYCL10TA19 PO; -CYCL10TA2 PO; +FLEC50TA PO; +MAGN250T2 PO; +POTA500T5 PO
--- NOTE | 2021-08-02 10:43 | PHYS DOC ---
Past Medical History Past Medical History: Diverticulitis, GERD, High Cholesterol, Hypertension Additional Past Medical Histor: Hypokalemia Past Surgical History: Cholecystectomy, Tubal ligation Additional Past Surgical Histo: CARDIOVERSION, ACL, ROTATOR CUFF, LEFT FOOT Smoking Status: Current Every Day Smoker Alcohol Use: Occasionally Drug Use: None General Adult EDM: Chief Complaint: BACK PAIN OR INJURY HPI: HPI: 61-year-old female past medical history significant for A. fib on Eliquis, hypertension, hyperlipidemia, GERD, CAD with carotid endarterectomy, COPD with discharge from hospital yesterday for COPD exacerbation and respiratory failure, presents the ED with complaints of lower low back pain, worse on the left side that occasionally radiates into her left thigh, for the past two days. Pain is exacerbated with hip flexion, no change when walking and leaning forward. Denies any history of trauma, history of IV drug use, history of cancer, history of sciatica, history of malignancy, history of immunocompromise state, neurologic complaints including saddle anesthesia, weakness or paresthesias, urinary retention, bowel or bladder incontinence, night pain, fever/chills/night sweats, unexplained weight loss, anticoagulants or coagulopathy, prolonged steroid use, presence of contusions or abrasions. Review of Systems: Review of Systems: Constitutional: Denies fever or chills. [] Eyes: Denies change in visual acuity. [] HENT: Denies nasal congestion or sore throat. [] Respiratory: Denies cough or shortness of breath. [] Cardiovascular: Denies chest pain or edema. [] GI: Denies abdominal pain, nausea, vomiting, bloody stools or diarrhea. [] : Denies saddle anesthesia or incontinence Musculoskeletal: Denies flank pain or joint pain. [] Integument: Denies rash or diaphoresis Neurologic: Denies headache, focal weakness or sensory changes. [] Endocrine: Denies polyuria or polydipsia. [] Lymphatic: Denies swollen glands. [] Psychiatric: Denies depression or anxiety. [] Heart Score: C/O Chest Pain: No Risk Factors: Risk Factors: DM, Current or recent (<one month) smoker, HTN, HLP, family history of CAD, obesity. Risk Scores: Score 0 - 3: 2.5% MACE over next 6 weeks - Discharge Home Score 4 - 6: 20.3% MACE over next 6 weeks - Admit for Clinical Observation Score 7 - 10: 72.7% MACE over next 6 weeks - Early Invasive Strategies Allergies: Allergies: Allergies Coded Allergies Type Severity Reaction Last Updated Verified shellfish derived Allergy Severe THROAT SWELLING 06/15/17 Yes codeine Adverse Reaction Intermediate vomiting 06/15/17 Yes Physical Exam: PE: Constitutional: Well developed, well nourished, no acute distress at rest, non- toxic appearance. HENT: Normocephalic, atraumatic, Eyes: EOMI, conjunctiva normal, no discharge. Neck: Normal range of motion, supple, Cardiovascular: S1/2 present, regular rhythm Lungs & Thorax: Speaking in full sentences, bilateral equal chest rise, no tachypnea or increased work of breathing Abdomen: soft, no tenderness, Skin: Warm, dry, no erythema, no rash. [] Back: No midline spinal step offs or tenderness, no CVA tenderness, left straight leg positive, pain is bilateral over L5 deramtoma/paraspinal-worse on left than right-cannot reproduce unless performing straight leg test Extremities: No tenderness, no cyanosis, no lower extremity edema Neurologic: Alert and oriented X 3, normal motor function, normal sensory function, no focal deficits noted, steady gait Psychologic: Affect normal, judgement normal, mood normal. [] Current Patient Data: Vital Signs: Vital Signs Date Time Temp Pulse Resp B/P (MAP) Pulse Ox O2 Delivery O2 Flow Rate FiO2 08/02/21 10:10 98.3 74 18 132/64 (86) 97 Room Air 98.3 EKG: EKG: [] Radiology/Procedures: Radiology/Procedures: [] IMAGING REPORT Signed PATIENT: HOLLY ANDERSON SACCOUNT: [id number] : 1960 LOCATION: ER AGE: 61 SEX: F EXAM STATUS: REG ER ORD. PHYSICIAN: BERNICE DHALIWAL DO REASON: low back pain PROCEDURE: CT LUMBAR SPINE RECONSTRUCTION EXAMINATION: CT lumbar spine contrast INDICATION:61 years, Female, low back pain. TECHNIQUE: Axial CT images of the lumbar spine was obtained. Coronal and sagi ttal reformatted performed. COMPARISON: CT abdomen dated 10/07/2016 Exposure: One or more of the following individualized dose reduction techniques were utilized for this examination: 1. Automated exposure control 2. Adjustment of the mA and/or kV according to patient size 3. Use of iterative reconstruction technique. FINDINGS: Grade 1 anterolisthesis of L4 over L5, slightly worsened since September 2016. The vertebral bodies are normal in height. No acute fracture or subluxation. Mild degenerative changes at L4-5 and L5-S1 with disc space narrowing and bilateral facet arthropathy, causing moderate to severe bilateral neuroforaminal narrowing, stable to slightly worsened since September 2016. Mild to moderate canal stenosis at L4-5. Paravertebral soft tissue is unremarkable. IMPRESSION: 1. No acute fracture or subluxation. 2. Grade 1 anterolisthesis of L4 over L5, slightly worsened since September 2016. 3. Mild degenerative changes at L4-5 and L5-S1 with moderate to severe bilateral neuroforaminal narrowing, stable to slightly worsened since September 2016. 4. Mild to moderate canal stenosis at L4-5. Electronically signed by: Eric Davison MD (08/02/2021 11:17 AM) [facility] DICTATED and SIGNED BY: ERIC DAVISON MD DATE: 08/02/21 [id number] 0 IMAGING REPORT Signed PATIENT: HOLLY ANDERSON SACCOUNT: [id number] : 1960 LOCATION: ER AGE: 61 SEX: F EXAM STATUS: REG ER ORD. PHYSICIAN: BERNICE DHALIWAL DO REASON: low back pain PROCEDURE: CT ABDOMEN PELVIS WO CONTRAST EXAMINATION: CT abdomen and pelvis without IV contrast. INDICATION:61 years, Female, low back pain. TECHNIQUE: Axial CT images of the abdomen and pelvis were obtained. Coronal and sagittal reformatted performed. COMPARISON: CT dated 10/07/2016. Exposure: One or more of the following individualized dose reduction techniques were utilized for this examination: 1. Automated exposure control 2. Adjustment of the mA and/or kV according to patient size 3. Use of iterative reconstruction technique. FINDINGS: LOWER CHEST: Unremarkable. ABDOMEN/PELVIS: Within the limitation of noncontrast exam, Mild hepatomegaly measures up to 19 cm in length, unchanged. No suspicious focal hepatic lesion. Cholecystectomy. No biliary ductal dilation. Spleen and pancreas are unremarkable. Nodular thickening of the left adrenal gland without discrete nodule. Right adrenal gland is unremarkable. Punctate (2 mm) nonobstructing. No hydronephrosis in either kidney. Partially duplicated left renal collecting system. No bowel obstruction. Colonic diverticulosis without CT evidence of acute diverticulitis. Normal appendix. Moderate aortoiliac atherosclerotic calcifications without dilation. No lymphadenopathy in the abdomen or pelvis by size criteria. No pneumoperitoneum or ascites. Decompressed urinary bladder which limits evaluation. Unremarkable uterus. No suspicious pelvic masses. MUSCULOSKELETAL STRUCTURES: Grade 1 anterolisthesis of L4 over L5, slightly worsened since September 2016. Similar mild degenerative changes at L4-5 and L5-S1. No acute osseous process. Small fat-containing umbilical hernia. IMPRESSION: Within the limitation of noncontrast exam, 1. No acute intra-abdominal findings. 2. Colonic diverticulosis without acute diverticulitis. 3. Punctate nonobstructing left nephrolithiasis. 4. Grade 1 anterolisthesis of L4 over L5, slightly worsened since September 2019. 5. Similar mild degenerative changes at L4-5 and L5-S1. Electronically signed by: Eric Davison MD (08/02/2021 11:14 AM) [facility] DICTATED and SIGNED BY: ERIC DAVISON MD DATE: 08/02/21 [id number] Course & Med Decision Making: Course & Med Decision Making Pertinent Labs and Imaging studies reviewed. (See chart for details) Concern for neuroforaminal stenosis and mild spondylolisthesis, with left-sided atraumatic paraspinal back pain and mild radiculopathy. Will treat with an algesia (educated on risk of addiction, constipation and sedation with norco) and rice instructions. Patient with no neurologic deficits, saddle anesthesia or incontinence. Patient with steady gait. Will discharge home with strict ED return precautions were given for neurologic deficits, severe pain or fever. Encouraged urgent outpatient follow-up with PMD and orthopedic surgery for definitive management. Life-threatening processes were considered but are low suspicion at this time, given history, physical exam and ED workup. Pt was educated on all prescription medications and adverse effects. All patient's questions were answered and pt was stable at time of discharge. Life/limb-threatening differential includes but is not limited to, aortic dissection/aneurysm, cauda equina syndrome, transverse myelitis, spinal cord/epidural compression syndromes, discitis, spinal stenosis, epidural abscess or hematoma, osteomyelitis, disc herniation, surgical abdomen, stable or unstable fracture, renal/ureteral colic, sepsis, meningitis, musculoskeletal injury, traumatic injury, intraabdominal/retroperitoneal or pelvic bleeding. I have spoken with the patient and/or caregivers. I explained the patient's condition, diagnoses and treatment plan based on the information available to me at this time. I have answered the patient and/or caregiver's questions and addressed any concerns. The patient and/or caregivers have a good understanding of patient's diagnosis, condition and treatment plan as can be expected at this point. Vital signs have been stable. Patient's condition is stable and appropriate for discharge from the emergency department. Patient will pursue further outpatient evaluation with primary care physician or other designated or consulting physician as outlined in the discharge instructions. The patient and/or caregivers are agreeable to this plan of care and follow-up instructions have been explained in detail. The patient and/or caregivers have received these instructions in written form and have expressed an understanding of the discharge instructions. The patient and/or caregivers are aware that any significant change of condition or worsening of symptoms should prompt immediate return to this or the closest emergency department or call to 911. Effektif Disclaimer: Effektif Disclaimer: This electronic medical record was generated, in whole or in part, using a voice recognition dictation system. Departure Departure Impression: Primary Impression: Neuroforaminal stenosis of lumbar spine Additional Impressions: Spondylisthesis Acute back pain Disposition: HOME / SELF CARE / HOMELESS Condition: STABLE Referrals: Meg INEVES MD (PCP) Follow-up with your primary care physician for routine care OR FOLLOW UP WITH FAMILY MEDICINE: [address] [facility], [facility] [address] [place] [address] Patient Instructions: Lumbosacral Radiculopathy, Spondylolisthesis with Rehab- [facility] Additional Instructions: FOLLOW UP WITH ORTHOPEDICS: FOR DEFINITIVE MANAGEMENT of radiculopathy and back pain Orthopaedic Surgery [address] [facility], [facility] [address] [place] [address] EMERGENCY DEPARTMENT GENERAL DISCHARGE INSTRUCTIONS Thank you for coming to [facility] Emergency Department (ED) today and trusting us with you care. We trust that you had a positive experience in our Emergency Department. If you wish to speak to the department management, you may call the Director at [phone]. YOUR FOLLOW UP INSTRUCTIONS ARE FOLLOWS: 1. Do you have a private Doctor? If you do not have a private doctor, please ask for a resource list of physicians or clinics that may be able to assist you with follow up care. 2. The Emergency Physicain has interpreted your x-rays. The X-Ray specialist will also review them. If there is a change in the findings, you will be notified in 48 hours when at all possible. 3. A lab test or culture has been done, your results will be reviewed and you will be notified if you need a change in treatment. ADDITIONAL INSTRUCTIONS AND INFORMATION: 1. Your care today has been supervised by a physician who is specially trained in emergency care. Many problems require more than one evaluation for a complete diagnosis and treatment. We recommend that you schedule your follow up appointment as recommended to ensure complete treatment of you illness or injury. If you are unable to obtain follow up care and continue to have a problem, or if your condition worsens, we recommend that you return to the ED. 2. We are not able to safely determine your condition over the phone nor are we able to give sound medical advice over the phone. For these safety reasons, if you call for medical advice we will ask you to come to the ED for further evaluation. 3. If you have any questions regarding these discharge instructions please call the ED at [phone]. SAFETY INFORMATION: In the interest of safety, wellness, and injury prevention; we encourage you to wear your sealbelt, if you smoke; quite smoking, and we encourage family to use a protective helmet for bicycling and other sporting events that present an increased risk for head injury. IF YOUR SYMPTOMS WORSEN OR NEW SYMPTOMS DEVELOP, OR YOU HAVE CONCERNS ABOUT YOUR CONDITION; OR IF YOUR CONDITION WORSENS WHILE YOU ARE WAITING FOR YOUR FOLLOW UP APPOINTMEN T; EITHER CONTACT YOUR PRIMARY CARE DOCTOR, THE PHYSICIAN WHOSE NAME AND NUMBER YOU WERE GIVEN, OR RETURN TO THE ED IMMEDIATELY. Scripts Ibuprofen (Ibuprofen) 600 Mg Tablet 600 MG PO every 6 hours for pain, #20 TAB Prov: BRANDONBERNICE ROMERO DO 08/02/21 Hydrocodone Bit/Acetaminophen (HYDROCODONE-APAP 5-325 ) 1 Tab Tablet 1 TAB PO PRN Q6HRS PRN for PAIN for 3 Days, #12 TAB 0 Refills Prov: BERNICE DHALIWAL DO 08/02/21 BERNICE DHALIWAL DO Aug 02, 2021 10:43
[2021-08-02 11:01] LABS: BILIRUBIN,URINE SMALL (NEG); CLARITY,URINE CLEAR; COLOR,URINE ORANGE; NITRITE,URINE POSITIVE (NEG); PH,URINE 5.5 (<5.0-8.0); PROTEIN,URINE NEGATIVE (NEG-TRACE)
--- NOTE | 2021-08-02 11:16 | RAD ---
EXAMINATION: CT abdomen and pelvis without IV contrast. INDICATION:61 years, Female, low back pain. TECHNIQUE: Axial CT images of the abdomen and pelvis were obtained. Coronal and sagittal reformatted performed. COMPARISON: CT dated 10/07/2016. Exposure: One or more of the following individualized dose reduction techniques were utilized for thi s examination: 1. Automated exposure control 2. Adjustment of the mA and/or kV according to patient size 3. Use of iterative reconstruction technique. FINDINGS: LOWER CHEST: Unremarkable. ABDOMEN/PELVIS: Within the limitation of noncontrast exam, Mild hepatomegaly measures up to 19 cm in length, unchanged. No suspicious focal hepatic lesion. Chol ecystectomy. No biliary ductal dilation. Spleen and pancreas are unremarkable. Nodular thickening of the left adrenal gland without discrete nodule. Right adrenal gland is unremarkable. Punctate (2 mm) nonobstructing. No hydronephrosis in either kidney. Partially duplicated left renal collecting system . No bowel obstruction. Colonic diverticulosis without CT evidence of acute diverticulitis. Normal appe ndix. Moderate aortoiliac atherosclerotic calcifications without dilation. No lymphadenopathy in the abdomen or pelvis by size criteria. No pneumoperitoneum or ascites. Decompressed urinary bladder whic h limits evaluation. Unremarkable uterus. No suspicious pelvic masses. MUSCULOSKELETAL STRUCTURES: Grade 1 anterolisthesis of L4 over L5, slightly worsened since September 2016. Similar mild degenerati ve changes at L4-5 and L5-S1. No acute osseous process. Small fat-containing umbilical hernia. IMPRESSION: Within the limitation of noncontrast exam, 1. No acute intra-abdominal findings. 2. Colonic diverticulosis without acute diverticulitis. 3. Punctate nonobstructing left nephrolithiasis. 4. Grade 1 anterolisthesis of L4 over L5, slightly worsened since September 2019. 5. Similar mild degenerative changes at L4-5 and L5-S1. Electronically signed by: Raymond Davison MD (08/02/2021 11:14 AM) [facility]
--- NOTE | 2021-08-02 11:19 | RAD ---
EXAMINATION: CT lumbar spine contrast INDICATION:61 years, Female, low back pain. TECHNIQUE: Axial CT images of the lumbar spine was obtained. Coronal and sagittal reformatted perform ed. COMPARISON: CT abdomen dated 10/07/2016 Exposure: One or more of the following individualized dose reduction techniques were utilized for thi s examination: 1. Automated exposure control 2. Adjustment of the mA and/or kV according to patient size 3. Use of iterative reconstruction technique. FINDINGS: Grade 1 anterolisthesis of L4 over L5, slightly worsened since September 2016. The vertebral bodies ar e normal in height. No acute fracture or subluxation. Mild degenerative changes at L4-5 and L5-S1 wit h disc space narrowing and bilateral facet arthropathy, causing moderate to severe bilateral neurofor aminal narrowing, stable to slightly worsened since September 2016. Mild to moderate canal stenosis at L4-5. Paravertebral soft tissue is unremarkable. IMPRESSION: 1. No acute fracture or subluxation. 2. Grade 1 anterolisthesis of L4 over L5, slightly worsened since September 2016. 3. Mild degenerative changes at L4-5 and L5-S1 with moderate to severe bilateral neuroforaminal narr owing, stable to slightly worsened since September 2016. 4. Mild to moderate canal stenosis at L4-5. Electronically signed by: Raymond Davison MD (08/02/2021 11:17 AM) [facility]
[2021-08-02 11:30] VITALS: BP 102/63
[2021-08-02 11:40] LABS: BACTERIA,URINE 0 /HPF (0-FEW); HYALINE CASTS, URINE FEW /HPF; RBC,URINE 0 /HPF (0-2); WBC,URINE OCC /HPF (0-4)
[2021-08-02] MEDS ORDERED: IBUPROFEN 200 MG TABLET. PO ONE (11:45)
[2021-08-02] MEDS ORDERED: HYDROcodone/APAP 7.5/325MG 1 TAB TABLET PO ONE (11:45)
[2021-08-02] MEDS ORDERED: IBUP-985 PO (11:46)
[2021-08-02] MEDS ORDERED: HYDR-2761 PO (11:46)
== END 2021-08-02 12:01 | disposition home or self-care (01) ==
LOC: ER 10:10
DX: M48.061 Spinal stenosis, lumbar region without neurogenic claudication (principal); M43.17 Spondylolisthesis, lumbosacral region; K21.9 Gastro-esophageal reflux disease without esophagitis; E78.00 Pure hypercholesterolemia, unspecified; I10 Essential (primary) hypertension; I25.10 Atherosclerotic heart disease of native coronary artery without angina pectoris; J44.1 Chronic obstructive pulmonary disease with (acute) exacerbation; F17.200 Nicotine dependence, unspecified, uncomplicated; Z90.49 Acquired absence of other specified parts of digestive tract; Z98.51 Tubal ligation status; Z91.013 Allergy to seafood; Z88.5 Allergy status to narcotic agent
CPT/HCPCS: 74176; 81001; 87086; 99285-25

== ENCOUNTER → 2021-09-14 | Outpatient (CLI) | payer OTHER ==
[~2021-09-14] MED LIST changes: +HYDR-2761 PO; +IBUP-985 PO; -MAGN250T2 PO; +MAGN250T4 PO
--- NOTE | 2021-09-14 08:22 | RAD ---
EXAMINATION: US ABDOMEN COMPLETE CLINICAL HISTORY: Abdominal pain. TECHNIQUE: Grayscale sonographic imaging of the abdomen obtained with color Doppler imaging and spect ral Doppler analysis as indicated. COMPARISON: CT abdomen/pelvis 08/02/2021 FINDINGS: Pancreas: Normal sonographic appearance. - Portions obscured: Tail - Lesions: None Liver: - Echotexture: Normal, homogeneous. - Echogenicity: Normal - Surface contour: Smooth - Lesions: None Biliary: No intrahepatic biliary duct dilation. - CBD: 6 mm. - Gallbladder: Cholecystectomy. Spleen: - Craniocaudal length: 11.3 cm. - Lesions: None Right Kidney: - Renal length: 10.8 cm - Parenchyma: Normal parenchymal echogenicity. Normal parenchymal thickness. - Collecting system: No hydronephrosis. - Calculus: No echogenic, shadowing calculus. Small nonobstructive calculi seen on comparison CT a re not definitively appreciated on this exam. - Lesion: None Left Kidney: - Renal length: 12.8 cm - Parenchyma: Normal parenchymal echogenicity. Normal parenchymal thickness. - Collecting system: No hydronephrosis. Partially duplicated collecting system seen on comparison CT is not demonstrated on available images. - Calculus: No echogenic, shadowing calculus. - Lesion: None IVC: Imaged segments patent. Abdominal Aorta: Imaged segments patent. Ascites: None. IMPRESSION: Cholecystectomy, otherwise unremarkable exam as described. Electronically signed by: Ron Santo DO (09/14/2021 8:20 AM) [facility]
== END ==
LOC: US 06:54
PROVIDERS: ATTEND Family Medicine
DX: R10.9 Unspecified abdominal pain (principal); Z90.49 Acquired absence of other specified parts of digestive tract
CPT/HCPCS: 76700

== ENCOUNTER 2021-11-03 05:10 | Observation (INO) | payer OTHER ==
[~2021-11-03] VITALS: Ht 160 cm; Wt 67.2 kg
--- NOTE | 2021-11-03 05:49 | PHYS DOC ---
Past Medical History Past Medical History: Diverticulitis, GERD, High Cholesterol, Hypertension Additional Past Medical Histor: Hypokalemia Past Surgical History: Cholecystectomy, Tubal ligation Additional Past Surgical Histo: CARDIOVERSION, ACL, ROTATOR CUFF, LEFT FOOT, BILATERAL SHOULDERS Smoking Status: Current Every Day Smoker Alcohol Use: Heavy Drug Use: None General Adult EDM: Chief Complaint: SHORTNESS OF BREATH HPI: HPI: 61-year-old female past medical history significant for atrial fibrillation on Eliquis, hypertension, GERD, hyperlipidemia, bl CEA, diverticulitis, tobacco use, COPD and HFrEF (50-55% 04/2021) presents the ED with complaints of " I just cannot get any air in and cannot lie flat due to shortness of breath. Symptoms started yesterday and do not feel like COPD. Associated dry cough. No relief with her rescue inhaler and bevespi. States she has had these symptoms before and was diagnosed with "fluid around my heart and in my lungs," back in 04/2021. Has been vaccinated for COVID, pfizer x2, no booster. Was positive for Covid 1 month ago but did not require any oxygen or hospitalization. Reports no associated fever, chills, sore throat, back pain, chest pressure, leg swelling or hemoptysis. Review of Systems: Review of Systems: Constitutional: Denies fever or chills. [] Eyes: Denies change in visual acuity. [] HENT: Denies nasal congestion or sore throat. [] Respiratory: Denies increased work of breathing or hemoptysis Cardiovascular: Denies chest pain or edema. [] GI: Denies abdominal pain, nausea, vomiting, bloody stools or diarrhea. [] : Denies dysuria or hematuria Musculoskeletal: Denies back pain or joint pain. [] Integument: Denies rash or diaphoresis Neurologic: Denies headache, focal weakness or sensory changes. [] Endocrine: Denies polyuria or polydipsia. [] Lymphatic: Denies swollen glands. [] Psychiatric: Denies depression or anxiety. [] Heart Score: C/O Chest Pain: No Risk Factors: Risk Factors: DM, Current or recent (<one month) smoker, HTN, HLP, family history of CAD, obesity. Risk Scores: Score 0 - 3: 2.5% MACE over next 6 weeks - Discharge Home Score 4 - 6: 20.3% MACE over next 6 weeks - Admit for Clinical Observation Score 7 - 10: 72.7% MACE over next 6 weeks - Early Invasive Strategies Allergies: Allergies: Allergies Coded Allergies Type Severity Reaction Last Updated Verified shellfish derived Allergy Severe THROAT SWELLING 06/15/17 Yes codeine Adverse Reaction Intermediate vomiting 06/15/17 Yes Physical Exam: PE: Constitutional: Hypertensive, nontoxic. HENT: Normocephalic, atraumatic, Eyes: EOMI, conjunctiva normal, no discharge. Neck: Normal range of motion, supple, bilateral vertical scars over anterior neck Cardiovascular: S1/2 present, irregular rhythm Lungs & Thorax: Speaking in full sentences-slightly labored with prolonged speech, bilateral equal chest rise, no tachypnea or increased work of breathing, clear lung sounds bilaterally with no rales or crackles, Abdomen: soft, no tenderness, Skin: Warm, dry, no erythema, no rash. [] Extremities: No tenderness, no cyanosis, no unilateral lower extremity edema Neurologic: Alert and oriented X 3, normal motor function, normal sensory function, no focal deficits noted. [] Psychologic: Affect normal, judgement normal, mood normal. [] Current Patient Data: Vital Signs: Vital Signs Date Time Temp Pulse Resp B/P (MAP) Pulse Ox O2 Delivery O2 Flow Rate FiO2 11/03/21 05:15 98.2 85 19 170/81 (110) 99 Room Air 98.2 EKG: EKG: Atrial fibrillation 92 bpm, left axis deviation, QTC 465, no T wave inversion, ST elevation or ST depression, no active chest pain or pressure Radiology/Procedures: Radiology/Procedures: [] Course & Med Decision Making: Course & Med Decision Making Pertinent Labs and Imaging studies reviewed. (See chart for details) Concern for dyspnea and orthopnea in the setting of uncontrolled hypertension. Chest x-ray is concerning for cephalization of pulmonary vessels, acute CHF. Lasix ordered. Labs are pending. Due to shift change patient was signed out to oncoming physician Dr. Varela for further medical evaluation and disposition. Dragon Disclaimer: Dragon Disclaimer: This electronic medical record was generated, in whole or in part, using a voice recognition dictation system. Departure Departure Impression: Primary Impression: Dyspnea Additional Impression: Orthopnea Referrals: Meg NIEVES MD (PCP) BERNICE DHALIWAL DO Nov 03, 2021 05:49
--- NOTE | 2021-11-03 05:56 | EKG ---
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
[2021-11-03 06:00] LABS: BASO % 0 % (0-3); EOS # 0.1 x10^3/uL (0.0-0.7); EOS % 1 % (0-3); HEMOGLOBIN 14.4 g/dL (12.0-15.5); LYMPH # 0.7 x10^3/uL (1.0-4.8); LYMPH % 11 % (24-48); MEAN CORPUSCULAR HEMOGLOBIN 33 pg (25-35); MEAN CORPUSCULAR HGB CONC 33 g/dL (31-37); MEAN CORPUSCULAR VOLUME 99 fL (79-100); MONO # 0.5 x10^3/uL (0.0-1.1); MONO % 7 % (0-9); NEUT # 5.3 x10^3/uL (1.8-7.7); NEUT % 81 % (31-73); PLATELET COUNT 248 x10^3/uL (140-400); RED BLOOD COUNT 4.45 x10^6/uL (3.50-5.40); RED CELL DISTRIBUTION WIDTH 16.2 % (11.5-14.5); WHITE BLOOD COUNT 6.6 x10^3/uL (4.0-11.0)
[2021-11-03] MEDS ORDERED: FUROSEMIDE 40 MG/4 ML VIAL. IVP ONE (06:00)
[2021-11-03] MEDS ORDERED: DEXAMETHASONE SOD PHOS 20 MG/5 ML VIAL. IV ONE (06:00)
--- NOTE | 2021-11-03 06:01 | RAD ---
AP chest x-ray HISTORY: Shortness of breath. Orthopnea. COMPARISON: Chest x-ray July 30, 2021 FINDINGS: Mild cardiomegaly is stable. No pneumothorax. No pleural effusions. Perihilar lower lobe pu lmonary interstitial infiltrates likely edema. Bones are normal. IMPRESSION: Congestive heart failure with cardiomegaly and perihilar and lower lobe pulmonary interst itial infiltrates likely edema. Atypical infection such as viral pneumonia would be a secondary consi deration. No pleural effusions. Electronically signed by: Maximo Wright MD (11/03/2021 5:59 AM) [facility]
[2021-11-03 06:12] LABS: CALCIUM 9.6 mg/dL (8.5-10.1); CREATININE 0.8 mg/dL (0.6-1.0); GFR 72.7; POTASSIUM 3.7 mmol/L (3.5-5.1)
[2021-11-03 06:19] LABS: ALBUMIN/GLOBULIN RATIO 1.1 (1.0-1.7); TOTAL BILIRUBIN 0.8 mg/dL (0.2-1.0); TOTAL PROTEIN 7.6 g/dL (6.4-8.2)
[2021-11-03] MEDS ORDERED: ONDANSETRON PF 4 MG/2 ML VIAL. IVP PRN ×2 (07:15→09:45)
[2021-11-03] MEDS ORDERED: ACETAMINOPHEN 325 MG TABLET. PO PRN ×2 (07:15→09:45)
[2021-11-03] MEDS ORDERED: NITROGLYCERIN OINT 1 GM PACKET. TP ONE (07:30)
[2021-11-03] MEDS ORDERED: FLECAINIDE ACETATE 50 MG TABLET. PO STA (07:31)
[2021-11-03] MEDS ORDERED: APIXABAN 5 MG TABLET. PO STA (07:31)
[2021-11-03 08:08] VITALS: BP 148/98
[2021-11-03] MEDS ORDERED: ACET500T68 PO (08:36)
[2021-11-03] MEDS ORDERED: EZET10TA20 PO (08:36)
[2021-11-03] MEDS: FUROSEMIDE 40 MG/4 ML VIAL. IVP SCH ×2 (09:00→14:41)
[2021-11-03] MEDS ORDERED: CALCIUM CARBONATE 500 MG TAB.CHEW PO PRN (09:45)
[2021-11-03] MEDS ORDERED: ELECTROLYTE (NON-ICU) PROTOCOL. MC PRN (09:45)
[2021-11-03] MEDS ORDERED: ZOLPIDEM 5 MG TABLET. PO PRN (09:45)
[2021-11-03] MEDS ORDERED: ANTI-COAG MONITOR BY PHARMACY. MC PRN (10:45)
[2021-11-03 11:00] VITALS: BP 135/66
--- NOTE | 2021-11-03 11:27 | HP ---
DATE OF SERVICE: 11/03/2021 ADMIT DATE: 11/03/2021 CHIEF COMPLAINT: Shortness of breath. HISTORY OF PRESENT ILLNESS: The patient is a pleasant 61-year-old female well known to my service. She has multiple comorbidities. Last night, she presented with shortness of breath, was noted to be in acute on chronic systolic and diastolic heart failure. Her BNP level is elevated at 1622 and her chest x-ray is showing some congestive heart failure and cardiomegaly. PAST MEDICAL HISTORY: Heart failure, diverticulitis, GERD, hyperlipidemia, hypertension, hypokalemia, cholecystectomy, tubal ligation, rotator cuff surgery, left foot surgery, bilateral shoulder surgery, continued tobacco abuse. ALLERGIES: CODEINE AND SHELLFISH. FAMILY HISTORY: Coronary artery disease. SOCIAL HISTORY: She smokes. No drink or drugs. MEDICATIONS: Reviewed, please refer to the MRAD. REVIEW OF SYSTEMS: GENERAL: No history of weight change, weakness or fevers. SKIN: No bruising, hair changes or rashes. EYES: No blurred, double or loss of vision. NOSE AND THROAT: No history of nosebleeds, hoarseness or sore throat. HEART: No history of palpitations, chest pain or shortness of breath on exertion. LUNGS: She complains of shortness of breath. GASTROINTESTINAL: Denies changes in appetite, nausea, vomiting, diarrhea or constipation. GENITOURINARY: No history of frequency, urgency, hesitancy or nocturia. NEUROLOGIC: Denies history of numbness, tingling, tremor or weakness. PSYCHIATRIC: No history of panic, anxiety or depression. ENDOCRINE: No history of heat or cold intolerance, polyuria or polydipsia. EXTREMITIES: Denies muscle weakness, joint pain, pain on walking or stiffness. PHYSICAL EXAMINATION: VITALS: Within normal limits and are stable. GENERAL: No apparent distress. Alert and oriented. HEENT: Normal cephalic atraumatic, external auditory canals are patent. EYES: Extraocular muscles are intact, pupils are equally round and reactive to light and accommodation. MUSCULOSKELETAL: Well developed, well nourished, good range of motion. ENDOCRINE: No thyromegaly was palpated, LYMPHATICS: No cervical chain or axillary nodes were noted. HEMATOPOIETIC: No bruising. NECK: Supple, no JVD, no thyromegaly was noted. LUNGS: She has bibasilar crackles. HEART: RRR, S1, S2 present. Peripheral pulses intact, no obvious murmurs were noted. ABDOMEN: Soft, nontender. Positive bowel sounds no organomegaly, normal bowel sounds. EXTREMITIES: Without any cyanosis, clubbing, or edema. Pedal pulses intact, Homans sign is negative. NEUROLOGIC: Normal speech, normal tone. A and O x 3, moves all extremities, no obvious focal deficits. PSYCHIATRIC: Normal affect, normal mood. Stable. SKIN: No ulcerations or rashes, good skin turgor, no jaundice. VASCULAR: Good capillary refill, neurovascular bundle appears to be intact. DIAGNOSTIC DATA: BNP is high at 1622. Chest x-ray is showing vascular congestion. ASSESSMENT AND PLAN: Acute on chronic systolic and diastolic heart failure. The patient has been admitted. IV Lasix. Cardiac monitoring, serial enzymes, serial EKGs, home meds. DVT prophylaxis. Full code. Suspect she might need group home. KASHMIR/HIEU DR: Terry TID: [id number]
[2021-11-03] MEDS: ATENOLOL 50 MG TABLET. PO SCH (11:39)
[2021-11-03] MEDS: EZETIMIBE 10 MG TABLET. PO SCH (11:40)
[2021-11-03] MEDS: LISINOPRIL 20 MG TABLET PO SCH (11:40)
[2021-11-03] MEDS: PANTOPRAZOLE 40 MG TABLET.DR. PO SCH (11:40)
--- NOTE | 2021-11-03 13:48 | NUR ---
SS following for discharge planning. SS reviewed pt chart and discussed with pt RN. Pt is from home with spouse and is currently requiring oxygen at two liters PRN. Pt on IV Lasix. PT/OT ordered. Per RN, pt ambulating ad jessica. SS will continue to follow for discharge planning.
[2021-11-03 15:00] VITALS: BP 152/89
[2021-11-03 18:47] VITALS: BP 112/64
[2021-11-03] MEDS: SENNOSIDES/DOCUSATE 8.6/50MG TABLET. PO SCH (20:13)
[2021-11-03] MEDS: APIXABAN 5 MG TABLET. PO SCH (20:13)
[2021-11-03] MEDS: FLECAINIDE ACETATE 50 MG TABLET. PO SCH (20:13)
[2021-11-03 22:29] VITALS: BP 115/74
[2021-11-04 02:35] VITALS: BP 119/73
[2021-11-04 04:28] LABS: BASO % 0 % (0-3); EOS # 0.1 x10^3/uL (0.0-0.7); EOS % 1 % (0-3); HEMATOCRIT 45.9 % (36.0-47.0); HEMOGLOBIN 15.5 g/dL (12.0-15.5); LYMPH # 0.9 x10^3/uL (1.0-4.8); LYMPH % 17 % (24-48); MEAN CORPUSCULAR HEMOGLOBIN 33 pg (25-35); MEAN CORPUSCULAR HGB CONC 34 g/dL (31-37); MEAN CORPUSCULAR VOLUME 99 fL (79-100); MONO # 0.5 x10^3/uL (0.0-1.1); MONO % 9 % (0-9); NEUT # 4.1 x10^3/uL (1.8-7.7); NEUT % 73 % (31-73); PLATELET COUNT 247 x10^3/uL (140-400); RED BLOOD COUNT 4.65 x10^6/uL (3.50-5.40); RED CELL DISTRIBUTION WIDTH 16.5 % (11.5-14.5); WHITE BLOOD COUNT 5.6 x10^3/uL (4.0-11.0)
[2021-11-04 04:40] LABS: ALBUMIN 3.8 g/dL (3.4-5.0); CALCIUM 9.6 mg/dL (8.5-10.1); CREATININE 0.8 mg/dL (0.6-1.0); GFR 72.7; POTASSIUM 3.4 mmol/L (3.5-5.1); TOTAL PROTEIN 7.5 g/dL (6.4-8.2)
[2021-11-04] MEDS: PANTOPRAZOLE 40 MG TABLET.DR. PO SCH (06:17)
[2021-11-04 07:00] VITALS: BP 139/82
[2021-11-04] MEDS: FUROSEMIDE 40 MG/4 ML VIAL. IVP SCH (08:42)
[2021-11-04 08:43] VITALS: BP 139/82
[2021-11-04] MEDS: FLECAINIDE ACETATE 50 MG TABLET. PO SCH (08:43)
[2021-11-04] MEDS: EZETIMIBE 10 MG TABLET. PO SCH (08:43)
[2021-11-04] MEDS: ATENOLOL 50 MG TABLET. PO SCH (08:43)
[2021-11-04] MEDS: APIXABAN 5 MG TABLET. PO SCH (08:43)
[2021-11-04] MEDS: LISINOPRIL 20 MG TABLET PO SCH (08:43)
[2021-11-04] MEDS: SENNOSIDES/DOCUSATE 8.6/50MG TABLET. PO SCH (08:43)
[2021-11-04] MEDS ORDERED: FURO-68 PO (10:10)
--- NOTE | 2021-11-04 10:54 | DS ---
DATE OF DISCHARGE: 11/04/2021 ADMITTING DIAGNOSIS: Acute on chronic systolic and diastolic heart failure. DISCHARGE DIAGNOSES: Resolving heart failure, history of diverticulitis, gastroesophageal reflux disease, hyperlipidemia, hypertension, hypokalemia, cholecystectomy, tubal ligation, rotator cuff surgery, left foot surgery, bilateral shoulder surgery, continued tobacco abuse. HOSPITAL COURSE: The patient is a pleasant middle-aged female with multiple comorbidities. She continues to smoke. She also has now developed acute on chronic systolic and diastolic heart failure. We admitted her and gave her IV Lasix. Today, I saw and examined her. She is doing great, wants to go home. We plan to discharge her. I am going to continue her home medications and add in p.o. Lasix 40 a day. DISPOSITION: Home. ACTIVITY: As tolerated. DIET: Cardiac. DISCHARGE MEDICATIONS: Please see the MRAD. Lasix 40 a day, p.r.n. Tylenol, Eliquis 5 b.i.d., atenolol 100 daily, Cardizem CD 360 a day, Zetia 10 a day, flecainide 50 q.12 hours, lisinopril 40 a day, magnesium 500 a day, omeprazole 40 a day and potassium 500 mg daily, and Bevespi Aerosphere inhaler. TOTAL TIME: 36 minutes. KASHMIR/HIEU DR: Terry TID: [id number]
--- NOTE | 2021-11-04 12:04 | NUR ---
SS following up with discharge planning. SS reviewed pt chart and discussed with pt RN. Pt is currently on room air. PT/OT recommended home. Discharge order on the chart for home with self care.
== END 2021-11-04 11:00 | disposition home or self-care (01) ==
LOC: ER 05:10 → 6 SOUTH 07:00 → INTOOBSV 07:00 → 6 SOUTH 08:04
PROVIDERS: ADMIT Student in an Organized Health Care Education/Training Program; ATTEND Student in an Organized Health Care Education/Training Program
DX: J96.01 Acute respiratory failure with hypoxia (principal); I11.0 Hypertensive heart disease with heart failure; I50.43 Acute on chronic combined systolic (congestive) and diastolic (congestive) heart failure; J44.9 Chronic obstructive pulmonary disease, unspecified; I48.91 Unspecified atrial fibrillation; E78.5 Hyperlipidemia, unspecified; E78.00 Pure hypercholesterolemia, unspecified; E87.6 Hypokalemia; F17.200 Nicotine dependence, unspecified, uncomplicated; Z79.01 Long term (current) use of anticoagulants; Z86.16 Personal history of COVID-19; Z79.899 Other long term (current) drug therapy; Z98.890 Other specified postprocedural states; Z90.49 Acquired absence of other specified parts of digestive tract; Z98.51 Tubal ligation status
CPT/HCPCS: 36415; 71045; 80053; 82550; 83735; 83880; 84484; 85025; 93005; 96374; 96376; 97162; 97165; 97530; 99291; G0378; J1940; G0379